=== PATIENT | female | born 1960 | race Caucasian/White ===

== ENCOUNTER 2016-09-08 10:16 | Observation (INO) | payer OTHER ==
[~2016-09-08] VITALS: Ht 175.3 cm; Wt 65.3 kg
[~2016-09-08 10:16] MED LIST: CYCL1PAK PO; IBUP600T26 PO; NORC7.5T PO; OMEP20TA39 PO; SYMB80AE INH; VENTAER INH
[2016-09-08 10:28] VITALS: BP 126/75; PULSE 97; RESP 16; TEMP 98.8; O2SAT 98
[2016-09-08] MEDS ORDERED: VANCOMYCIN INJ 1,000 MG in SODIUM CHLOR 0.9% 250 ML INJ 250 ML IV STA (10:47)
[2016-09-08] MEDS ORDERED: PIPERACIL-TAZO 4.5 GM PREMIX 100 ML IV STA (10:47)
--- NOTE | 2016-09-08 10:55 | PD ---
HPI . Pain and swelling of the left upper extremity Chief Complaint: Edema Time Seen by Provider: 10:43 Travel History International Travel<30 days: No Contact w/Intl Traveler<30days: No Traveled to known affect area: No History of Present Illness HPI Patient presents with a 24-hour history of pain and swelling of the left upper extremity. She states that it started as some red blotches on the medial aspect of her left arm. This morning, her entire left arm is involved and is spreading to her neck and chest. She denies any associated fever or any other systemic complaints. [id number]: Left arm DURATION: 24 hours TIMING: Progressively worsening CONTEXT: Status post lymph node dissection of the left axilla secondary to breast cancer resultant lymphedema ASSOCIATED SYMPTOMS: No associated systemic symptoms PFSH Past Medical History Arthritis: Yes Blood Disorders: No Anxiety: Yes Cancer: Yes (LEFT BREAST) Chemotherapy: Yes (Hx of) Diminished Hearing: No Genitourinary: No Immune Disorder: Yes Musculoskeletal: Yes Neurologic: Yes Respiratory: Yes (copd) Radiation Therapy: Yes Tetanus Vaccination: > 5 Years Influenza Vaccination: No ?: Not Menopausal: Yes Past Surgical History Gynecologic Surgery: Yes (L BREAST MASECTOMY PARTIAL) Hysterectomy: Yes Neurologic Surgery: Yes (C2 NECK SURGERY) Other Surgery: Yes (PORT REMOVED 2011) Social History Alcohol Use: Yes (RARE) Tobacco Use: Yes (1/2 PPD) Substance Use: No (DENIES) Allergies-Medications (Allergen,Severity, Reaction): Coded Allergies: Furadantin (Verified Allergy, Severe, SEIZURES AND SWELLING, 09/08/16) Percocet (Unverified Allergy, Unknown, PROJECTILE VOMITING, 09/08/16) Percodan (Unverified Allergy, Unknown, PROJECTILE VOMITING, 09/08/16) Reported Meds & Prescriptions Reported Meds & Active Scripts Active Review of Systems Except as stated in HPI: all other systems reviewed are Neg General / Constitutional: No: Fever, Chills Gastrointestinal: No: Nausea, Vomiting Musculoskeletal: Positive: Myalgias, Edema Skin: Positive Change in Pigmentation Physical Exam Narrative GENERAL: Healthy-appearing woman who is in no acute distress. SKIN: Warm and dry. The skin of the left arm is red and hot. The skin on the medial aspect of the left arm feels pretty tight. She has some patches of redness skin on her left chest and left anterior neck. HEAD: Atraumatic. Normocephalic. EYES: Pupils equal and round. ENT: No nasal bleeding or discharge. Mucous membranes pink and moist. NECK: Trachea midline. Neck is supple. CARDIOVASCULAR: Regular rate and rhythm. RESPIRATORY: No accessory muscle use. MUSCULOSKELETAL: No obvious deformities. Left upper extremity is tender. NEUROLOGICAL: Awake and alert. No obvious cranial nerve deficits. Motor grossly within normal limits. Normal speech. PSYCHIATRIC: Appropriate mood and affect; insight and judgment normal. Data Data Last Documented VS Vital Signs Date Time Temp Pulse Resp B/P Pulse Ox O2 Delivery O2 Flow Rate FiO2 09/08/16 10:28 98.8 97 16 126/75 98 Orders Complete Blood Count With Diff (09/08/16 10:47) Comprehensive Metabolic Panel (09/08/16 10:47) Lactic Acid Sepsis Protocol (09/08/16 10:47) Blood Culture (09/08/16 10:47) Iv Access Insert/Monitor (09/08/16 10:47) Hydromorphone Pf Inj (Dilaudid Pf Inj) (09/08/16 11:00) Ondansetron Inj (Zofran Inj) (09/08/16 11:00) Piperacil-Tazo 4.5 Gm Premix (Zosyn 4.5 (09/08/16 10:47) Vancomycin Inj (Vancomycin Inj) (09/08/16 10:47) Us Arm Venous Doppler (09/08/16 10:47) Basic Metabolic Panel (Bmp) (09/08/16 12:47) Diet As Tolerated (09/08/16 13:05) Admit Order (Ed Use Only) (09/08/16 13:44) Labs Laboratory Tests Test 09/08/16 09/08/16 11:15 11:30 White Blood Count 17.9 TH/MM3 Red Blood Count 4.06 MIL/MM3 Hemoglobin 13.6 GM/DL Hematocrit 40.7 % Mean Corpuscular Volume 100.4 FL Mean Corpuscular Hemoglobin 33.6 PG Mean Corpuscular Hemoglobin 33.5 % Concent Red Cell Distribution Width 13.9 % Platelet Count 285 TH/MM3 Mean Platelet Volume 7.9 FL Neutrophils (%) (Auto) 91.2 % Lymphocytes (%) (Auto) 7.2 % Monocytes (%) (Auto) 1.3 % Eosinophils (%) (Auto) 0.1 % Basophils (%) (Auto) 0.2 % Neutrophils # (Auto) 16.4 TH/MM3 Lymphocytes # (Auto) 1.3 TH/MM3 Monocytes # (Auto) 0.2 TH/MM3 Eosinophils # (Auto) 0.0 TH/MM3 Basophils # (Auto) 0.0 TH/MM3 CBC Comment DIFF FINAL Differential Comment Sodium Level 142 MEQ/L Potassium Level 3.5 MEQ/L Chloride Level 105 MEQ/L Carbon Dioxide Level 27.3 MEQ/L Anion Gap 10 MEQ/L Blood Urea Nitrogen 9 MG/DL Creatinine 0.76 MG/DL Estimat Glomerular Filtration 79 ML/MIN Rate Random Glucose 98 MG/DL Calcium Level 9.0 MG/DL Total Bilirubin 1.0 MG/DL Aspartate Amino Transf 45 U/L (AST/SGOT) Alanine Aminotransferase 38 U/L (ALT/SGPT) Alkaline Phosphatase 105 U/L Total Protein 7.6 GM/DL Albumin 3.7 GM/DL Lactic Acid Level 1.0 mmol/L MDM Medical Decision Making Medical Screen Exam Complete: Yes Emergency Medical Condition: Yes Differential Diagnosis My differential diagnosis includes but is not limited to localized wound infection, cellulitis, abscess, DVT Narrative Course Patient presents with acutely red, hot, swollen, painful left arm. I will treat her empirically for cellulitis with Zosyn and vancomycin. She will have an ultrasound rule out DVT. CBC Diagram 09/08/16 11:15 Last Impressions Upper Extremity Ultrasound 09/08/16 1047 Signed Impressions: Service Date/Time: Thursday, September 08, 2016 16:43 - CONCLUSION: No left upper extremity DVT. Iban Moon MD Diagnosis Primary Impression: Cellulitis Qualified Code: L03.114 - Cellulitis of left upper extremity Scripts Ondansetron Odt (Zofran Odt)4 Mg Tab4 Mg SL Q6HR PRN (Nausea/Vomiting) #30 TAB Ref 0 Prov:Nadine Spain MD 09/09/16 Amoxicillin-Clavulanate (Augmentin)875-125 mg [id number] Mg PO BID #10 TAB Ref 0 not for use in CrCl <30 ml/min. Prov:Nadine Spain MD 09/09/16 Leticia Bonds MD Sep 08, 2016 10:55
[2016-09-08] MEDS ORDERED: ONDANSETRON HCL 4 MG/2 ML VIAL IV ONE (11:00)
[2016-09-08] MEDS ORDERED: HYDROmorphone HCL PF 1 MG/ML VIAL IV ONE (11:00)
[2016-09-08 11:24] LABS: AUTOMATED NEUTROPHIL # 16.4 TH/MM3 (1.8-7.7); BASOPHIL % 0.2 % (0.0-2.0); EOSINOPHIL % 0.1 % (0.0-4.0); HEMATOCRIT 40.7 % (35.0-46.0); LYMPH % 7.2 % (9.0-44.0); LYMPHOCYTE # 1.3 TH/MM3 (1.0-4.8); MEAN CELL VOLUME 100.4 FL (80.0-100.0); MEAN CORPUSCULAR HEMOGLOBIN 33.6 PG (27.0-34.0); MEAN CORPUSCULAR HGB CONC 33.5 % (32.0-36.0); MONO % 1.3 % (0.0-8.0); NEUT % 91.2 % (16.0-70.0); PLATELET COUNT 285 TH/MM3 (150-450); RED BLOOD COUNT 4.06 MIL/MM3 (4.00-5.30); RED CELL DISTRIBUTION WIDTH 13.9 % (11.6-17.2); WHITE BLOOD COUNT 17.9 TH/MM3 (4.0-11.0)
[2016-09-08 11:27] LABS: HEMO FLAGS DIFF FINAL
[2016-09-08 11:32] LABS: CHLORIDE 105 MEQ/L (98-107); POTASSIUM 3.5 MEQ/L (3.5-5.1); SODIUM (NA) 142 MEQ/L (136-145)
[2016-09-08 11:35] LABS: ANION GAP 10 MEQ/L (5-15); BICARBONATE 27.3 MEQ/L (21.0-32.0)
[2016-09-08 11:36] LABS: BLOOD UREA NITROGEN 9 MG/DL (7-18)
[2016-09-08 11:38] LABS: ALT (GPT) 38 U/L (10-53); AST (GOT) 45 U/L (15-37)
[2016-09-08 11:39] LABS: GLOMERULAR FILTRATION RATE 79 ML/MIN (>89)
[2016-09-08 11:41] LABS: ALKALINE PHOSPHATASE 105 U/L (45-117)
--- NOTE | 2016-09-08 12:12 | RADHPO ---
EXAM DATE/TIME: 09/08/2016 16:43 [facility] COMPARISON: No previous studies available for comparison. INDICATIONS : Left arm swelling and pain. MEDICAL HISTORY : Chronic obstructive pulmonary disease. Neck and lower back surgery. Arthritis. Left breast cancer. Chemotherapy. Radiation therapy. SURGICAL HISTORY : Hysterectomy. Left partial mastectomy. Port placement and removal. ENCOUNTER: Initial ACUITY: 1 day PAIN SCORE: 3/10 LOCATION: Left arm. FINDINGS: There is spontaneous flow documented in the brachial, basilic, cephalic, axillary, and subclavian vei ns. The vessels are compressible and augmentation response is documented. No filling defects are se en. The flow is phasic with respiration. Direction of flow in the jugular vein is caudal. CONCLUSION: No left upper extremity DVT. Iban Moon MD on September 08, 2016 at 12:10 Board Certified Radiologist. This report was verified electronically.
[2016-09-08 14:14] LABS: POTASSIUM 3.5 MEQ/L (3.5-5.1)
[2016-09-08 14:18] VITALS: BP 122/80; PULSE 74; RESP 18; O2SAT 99
[2016-09-08 14:47] LABS: BICARBONATE 28.4 MEQ/L (21.0-32.0)
[2016-09-08] MEDS ORDERED: SODIUM CHLORIDE 0.9% FLUSH 5 ML FLUSH FLUSH PRN (15:30)
--- NOTE | 2016-09-08 15:36 | HHI.HP ---
[facility] Physician Non-Staff Admission Diagnosis CELLULITIS LUE Diagnoses: Chief Complaint: Left arm swelling Travel History International Travel<30 Days: No Contact w/Intl Traveler <30 Da: No Traveled to Known Affected Are: No History of Present Illness The patient is a very pleasant 56 year female with a history of the left breast cancer mastectomy with lymph node resection. She did have 2 days of increasing pain and burning and swelling of the left upper extremity with subjective chills and nausea. The discomfort became so great that she came to the emergency room and found to have significant cellulitis of the arm. This is given antibiotics and feels somewhat better. Her pain is okay and it this point is not severe. She noted the redness and swelling began as blotchiness been tracked all of the upper arm into her shoulder and chest and came to the emergency room for further evaluation. Patient has not had a fever, however she has been nauseated. For these reasons the patient did come to the emergency room Review of Systems Constitutional: DENIES: Diaphoretic episodes, Fatigue, Fever, Weight gain, Weight loss, Chills, Dizziness, Change in appetite, Night Sweats Endocrine: DENIES: Abnorml menstrual pattern, Heat/cold intolerance, Polydipsia , Polyuria, Polyphagia Eyes: DENIES: Blurred vision, Diplopia, Eye inflammation, Eye pain, Vision loss , Photosensitivity, Double Vision Ears, nose, mouth, throat: DENIES: Tinnitus, Hearing loss, Vertigo, Nasal discharge, Oral lesions, Throat pain, Hoarseness, Ear Pain, Running Nose, Epistaxis, Sinus Pain, Toothache, Odynophagia Respiratory: DENIES: Apneas, Cough, Snoring, Wheezing, Hemoptysis, Sputum production, Shortness of breath Cardiovascular: DENIES: Chest pain, Palpitations, Syncope, Dyspnea on Exertion , PND, Lower Extremity Edema, Orthopnea, Claudication Gastrointestinal: COMPLAINS OF: Nausea, DENIES: Abdominal pain, Black stools, Bloody stools, Constipation, Diarrhea, Vomiting, Difficulty Swallowing, Anorexia Genitourinary: DENIES: Abnormal vaginal bleeding, Dysmenorrhea, Dyspareunia, Sexual dysfunction, Urinary frequency, Urinary incontinence, Urgency, Hematuria , Dysuria, Nocturia, Vaginal discharge Musculoskeletal: DENIES: Joint pain, Muscle aches, Stiffness, Joint Swelling, Back pain, Neck pain Integumentary: DENIES: Abnormal pigmentation, Pruritus, Rash, Nail changes, Breast masses, Breast skin changes, Nipple discharge Hematologic/lymphatic: DENIES: Bruising, Lymphadenopathy Immunologic/allergic: DENIES: Eczema, Urticaria Neurologic: DENIES: Abnormal gait, Headache, Localized weakness, Paresthesias, Seizures, Speech Problems, Tremor, Poor Balance Psychiatric: DENIES: Anxiety, Confusion, Mood changes, Depression, Hallucinations, Agitation, Suicidal Ideation, Homicidal Ideation, Delusions Past Family Social History Past Medical History Breast cancer Chronic neck pain Past Surgical History lumpectomy, mastectomy Cervical neck surg Reported Medications Reviewed in the medical record Allergies: Coded Allergies: Furadantin (Verified Allergy, Severe, SEIZURES AND SWELLING, 09/08/16) Percocet (Unverified Allergy, Unknown, PROJECTILE VOMITING, 09/08/16) Percodan (Unverified Allergy, Unknown, PROJECTILE VOMITING, 09/08/16) Active Ordered Medications Reviewed and the medical record Family History Mother had colon cancer Social History Occasional marijuana, no alcohol, patient smokes pack per day Physical Exam Vital Signs Vital Signs Date Time Temp Pulse Resp B/P Pulse Ox O2 Delivery O2 Flow Rate FiO2 09/08/16 14:18 74 18 122/80 99 Room Air 09/08/16 10:28 98.8 97 16 126/75 98 Physical Exam GENERAL: This is a well-nourished, well-developed patient, in no apparent distress. SKIN: No rashes, ecchymoses or lesions. Cool and dry. HEAD: Atraumatic. Normocephalic. No temporal or scalp tenderness. EYES: Pupils equal round and reactive. Extraocular motions intact. No scleral icterus. No injection or drainage. ENT: Nose without bleeding, purulent drainage or septal hematoma. Throat without erythema, tonsillar hypertrophy or exudate. Uvula midline. Airway patent. NECK: Trachea midline. No JVD or lymphadenopathy. Supple, nontender, no meningeal signs. CARDIOVASCULAR: Regular rate and rhythm without murmurs, gallops, or rubs. RESPIRATORY: Clear to auscultation. Breath sounds equal bilaterally. No wheezes , rales, or rhonchi. GASTROINTESTINAL: Abdomen soft, non-tender, nondistended. No hepato-splenomegaly , or palpable masses. No guarding. MUSCULOSKELETAL: Left arm edema and erythema, other 3 Extremities without clubbing, cyanosis, or edema. No joint tenderness, effusion, or edema noted. No calf tenderness. Negative Homans sign bilaterally. NEUROLOGICAL: Awake and alert. Cranial nerves II through XII intact. Motor and sensory grossly within normal limits. Five out of 5 muscle strength in all muscle groups. Normal speech. Laboratory Laboratory Tests Test 09/08/16 09/08/16 09/08/16 11:15 11:30 13:56 White Blood Count 17.9 Red Blood Count 4.06 Hemoglobin 13.6 Hematocrit 40.7 Mean Corpuscular Volume 100.4 Mean Corpuscular Hemoglobin 33.6 Mean Corpuscular Hemoglobin 33.5 Concent Red Cell Distribution Width 13.9 Platelet Count 285 Mean Platelet Volume 7.9 Neutrophils (%) (Auto) 91.2 Lymphocytes (%) (Auto) 7.2 Monocytes (%) (Auto) 1.3 Eosinophils (%) (Auto) 0.1 Basophils (%) (Auto) 0.2 Neutrophils # (Auto) 16.4 Lymphocytes # (Auto) 1.3 Monocytes # (Auto) 0.2 Eosinophils # (Auto) 0.0 Basophils # (Auto) 0.0 CBC Comment DIFF FINAL Differential Comment Sodium Level 142 141 Potassium Level 3.5 3.5 Chloride Level 105 105 Carbon Dioxide Level 27.3 28.4 Anion Gap 10 8 Blood Urea Nitrogen 9 9 Creatinine 0.76 0.71 Estimat Glomerular Filtration 79 85 Rate Random Glucose 98 101 Calcium Level 9.0 8.1 Total Bilirubin 1.0 Aspartate Amino Transf 45 (AST/SGOT) Alanine Aminotransferase 38 (ALT/SGPT) Alkaline Phosphatase 105 Total Protein 7.6 Albumin 3.7 Lactic Acid Level 1.0 Date/Time Procedure Status Source Growth 09/08/16 11:30 Aerobic Blood Culture Received Blood Peripheral Pending 09/08/16 11:30 Anaerobic Blood Culture Received Blood Peripheral Pending Result Diagram: 09/08/16 1115 09/08/16 1356 Imaging Last Impressions Upper Extremity Ultrasound 09/08/16 1047 Signed Impressions: Service Date/Time: Thursday, September 08, 2016 16:43 - CONCLUSION: No left upper extremity DVT. Iban Moon MD Assessment and Plan Problem List: (1) Cellulitis ICD Code: L03.90 Status: Acute Plan: Unasyn Pain control Re eval in am Leukocytosis, (2) Lymphedema ICD Code: I89.0 Status: Acute Plan: Left arm, chronic after breast CA Pt education, Nadine Rivers MD Sep 08, 2016 15:36
[2016-09-08] MEDS ORDERED: traMADol HCL 50 MG TAB PO PRN (16:00)
[2016-09-08] MEDS: AMPICILLIN-SULBACTAM INJ 3 GM in SODIUM CHLORIDE 0.9% INJ 100 ML IV SCH ×2 (16:13→22:39)
[2016-09-08] MEDS: HYDROmorphone HCL PF 2 MG/ML VIAL IVS PRN (18:27)
[2016-09-08] MEDS: ONDANSETRON HCL 4 MG/2 ML VIAL IVP PRN (18:27)
[2016-09-08 18:33] VITALS: BP 119/79; PULSE 80; RESP 18; O2SAT 98
[2016-09-08 20:11] VITALS: BP 118/78; PULSE 78; RESP 18; O2SAT 98
[2016-09-08 20:59] VITALS: BP 125/86; PULSE 84; RESP 14; TEMP 98.3; O2SAT 94
[2016-09-08] MEDS: SODIUM CHLORIDE 0.9% FLUSH 5 ML FLUSH FLUSH SCH (21:00)
[2016-09-09 00:16] VITALS: BP 138/85; PULSE 86; RESP 16; TEMP 98.6; O2SAT 97
[2016-09-09] MEDS: ONDANSETRON HCL 4 MG/2 ML VIAL IVP PRN ×2 (00:35→06:46)
[2016-09-09] MEDS: HYDROmorphone HCL PF 2 MG/ML VIAL IVS PRN ×2 (00:35→06:47)
[2016-09-09] MEDS: AMPICILLIN-SULBACTAM INJ 3 GM in SODIUM CHLORIDE 0.9% INJ 100 ML IV SCH ×2 (04:56→10:00)
[2016-09-09 07:22] LABS: AUTOMATED NEUTROPHIL # 9.4 TH/MM3 (1.8-7.7); BASOPHIL % 0.1 % (0.0-2.0); EOSINOPHIL # 0.1 TH/MM3 (0-0.4); EOSINOPHIL % 0.8 % (0.0-4.0); HEMATOCRIT 34.1 % (35.0-46.0); LYMPH % 8.5 % (9.0-44.0); LYMPHOCYTE # 0.9 TH/MM3 (1.0-4.8); MEAN CELL VOLUME 100.3 FL (80.0-100.0); MEAN CORPUSCULAR HEMOGLOBIN 33.5 PG (27.0-34.0); MEAN CORPUSCULAR HGB CONC 33.3 % (32.0-36.0); NEUT % 85.6 % (16.0-70.0); PLATELET COUNT 220 TH/MM3 (150-450); RED CELL DISTRIBUTION WIDTH 13.5 % (11.6-17.2); WHITE BLOOD COUNT 10.9 TH/MM3 (4.0-11.0)
[2016-09-09 07:24] LABS: HEMO FLAGS DIFF FINAL
[2016-09-09 07:35] LABS: BICARBONATE 30.1 MEQ/L (21.0-32.0)
[2016-09-09] MEDS ORDERED: VENTAER INH (07:44)
[2016-09-09] MEDS ORDERED: OMEP20TA PO (07:44)
[2016-09-09] MEDS ORDERED: HYDR-3580 PO (07:44)
[2016-09-09] MEDS ORDERED: IBUP-232 PO (07:44)
[2016-09-09] MEDS ORDERED: SYMB80AE INH (07:44)
[2016-09-09 08:00] VITALS: BP 131/84; PULSE 79; RESP 18; TEMP 97.2; O2SAT 97
[2016-09-09] MEDS: SODIUM CHLORIDE 0.9% FLUSH 5 ML FLUSH FLUSH SCH (09:00)
[2016-09-09] MEDS ORDERED: AUGM875T PO (10:15)
[2016-09-09] MEDS ORDERED: ZOFR4TAB3 SL (10:15)
--- NOTE | 2016-09-09 10:17 | HHI.DCPOC ---
Discharge Care Plan Diagnosis: (1) Cellulitis Goals to Promote Your Health * To prevent worsening of your condition and complications * To maintain your health at the optimal level Directions to Meet Your Goals Take your medications as prescribed Follow your dietary instruction Follow activity as directed Keep your appointments as scheduled Take your immunizations and boosters as scheduled If your symptoms worsen call your PCP, if no PCP go to Urgent Care Center or Emergency Room Smoking is Dangerous to Your Health. Avoid second hand smoke Call the 24-hour hour crisis hotline for domestic abuse at Nadine Spain MD Sep 09, 2016 10:17
--- NOTE | 2016-09-09 10:18 | HHI.PR ---
Subjective Remarks Patient seen in follow-up for left arm cellulitis which is greatly improved. Edema and erythema is improved. Pain is improved. Leukocytosis improved. Discharge plans discussed with patient who is agreeable for discharge from outpatient follow-up with primary care physician Objective Vitals Vital Signs Date Time Temp Pulse Resp B/P Pulse Ox O2 Delivery O2 Flow Rate FiO2 09/09/16 08:00 97.2 79 18 131/84 97 09/09/16 00:16 98.6 86 16 138/85 97 09/08/16 20:59 98.3 84 14 125/86 94 09/08/16 20:12 78 18 98 09/08/16 20:11 78 18 118/78 98 Room Air 09/08/16 18:33 80 18 119/79 98 Room Air 09/08/16 14:18 74 18 122/80 99 Room Air 09/08/16 10:28 98.8 97 16 126/75 98 I/O 09/08/16 09/08/16 09/08/16 09/09/16 09/09/16 09/09/16 07:00 15:00 23:00 07:00 15:00 23:00 Intake Total 230 ml Balance 230 ml Intake IV Total 230 ml # Voids 1 Result Diagram: 09/09/16 0652 09/09/16 0652 Imaging Last Impressions Upper Extremity Ultrasound 09/08/16 1047 Signed Impressions: Service Date/Time: Thursday, September 08, 2016 16:43 - CONCLUSION: No left upper extremity DVT. Iban Moon MD Objective Remarks GENERAL: This is a well-nourished, well-developed patient, in no apparent distress. CARDIOVASCULAR: Regular rate and rhythm without murmurs, gallops, or rubs. RESPIRATORY: Clear to auscultation. Breath sounds equal bilaterally. No wheezes , rales, or rhonchi. GASTROINTESTINAL: Abdomen soft, non-tender, nondistended. Normal active bowel sounds MUSCULOSKELETAL: Extremities without clubbing, cyanosis, or edema. NEURO: Alert & Oriented x4 to person, place, time, situation. Moves all ext x4 A/P Problem List: (1) Cellulitis ICD Code: L03.90 Status: Acute Plan: Augmentin by mouth Pain control Resolved Leukocytosis, (2) Lymphedema ICD Code: I89.0 Status: Acute Plan: Left arm, chronic after breast CA Pt education, elevate Discharge Planning Discharge home Activity unrestricted Diet regular Follow-up PCP 09/19 Nadine Spain MD Sep 09, 2016 10:18
[2016-09-09] MEDS ORDERED: ONDANSETRON HCL 4 MG/2 ML VIAL IV PUSH ONE (11:45)
== END 2016-09-09 12:34 | disposition home or self-care (01) ==
LOC: PHED 10:16 → INTOOBSV 13:45 → PHEDA 13:45 → PHEDH 17:45 → PH3B 20:10
PROVIDERS: ADMIT Hospitalist; ATTEND Hospitalist
DX: L03.114 Cellulitis of left upper limb (principal); I89.0 Lymphedema, not elsewhere classified; M54.2 Cervicalgia; G89.29 Other chronic pain; F17.200 Nicotine dependence, unspecified, uncomplicated; D72.829 Elevated white blood cell count, unspecified; J44.9 Chronic obstructive pulmonary disease, unspecified; M19.90 Unspecified osteoarthritis, unspecified site; F41.9 Anxiety disorder, unspecified; Z88.5 Allergy status to narcotic agent; Z85.3 Personal history of malignant neoplasm of breast; Z90.12 Acquired absence of left breast and nipple; Z92.3 Personal history of irradiation; Z92.21 Personal history of antineoplastic chemotherapy; Z88.8 Allergy status to other drugs, medicaments and biological substances
CPT/HCPCS: 80048; 80053; 83605; 85025; 87040; 93971; 96365; 96367; 96375; 99284; G0378; J0295; J1170; J2405; J2543; J3370; J7050

== ENCOUNTER 2017-02-07 14:02 | Inpatient (IN) | payer OTHER, MEDICARE ==
[~2017-02-07] VITALS: Ht 175.3 cm; Wt 58.5 kg
[~2017-02-07 14:02] MED LIST changes: +AUGM875T PO; -CYCL1PAK PO; +HYDR-3580 PO; +IBUP-232 PO; -IBUP600T26 PO; -NORC7.5T PO; +OMEP20TA PO; -OMEP20TA39 PO; +ZOFR4TAB3 SL
[2017-02-07 14:03] VITALS: BP 121/71; PULSE 112; RESP 24; TEMP 98.2; O2SAT 97
--- NOTE | 2017-02-07 14:12 | PD ---
Physical Exam Date Seen by Provider: Feb 07, 2017 Time Seen by Provider: 14:08 Narrative 56 yo female here for pain in left arm and possible infection in all of the body. History of cellulitis and lymphangitis. Per patient pain all over. Started an hour ago. History of cancer. No new meds. Demanding a bed to lay down. No injuries. Vitals are stable in triage. Awaiting Bed placement. Data Data Last Documented VS Vital Signs Date Time Temp Pulse Resp B/P Pulse Ox O2 Delivery O2 Flow Rate FiO2 02/07/17 14:03 98.2 112 24 121/71 97 Room Air [facility] Medical Record Reviewed: Yes Supervised Visit with ROSHAN: No Flip Huertas Feb 07, 2017 14:12
[2017-02-07] MEDS ORDERED: CLINDAMYCIN INJ 900 MG in SODIUM CHLORIDE 0.9% INJ 100 ML IV STA (15:53)
[2017-02-07] MEDS ORDERED: SODIUM CHLOR 0.9% 1000 ML INJ 1,000 ML IV ONE ×2 (15:53)
[2017-02-07] MEDS ORDERED: SODIUM CHLOR 0.9% 1000 ML INJ 400 ML IV ONE (15:53)
[2017-02-07] MEDS ORDERED: ACETAMINOPHEN 325 MG TAB PO ONE (16:00)
--- NOTE | 2017-02-07 16:02 | PD ---
HPI Chief Complaint: Allergic/Adverse Reaction Time Seen by Provider: 15:44 Travel History International Travel<30 days: No Contact w/Intl Traveler<30days: No Traveled to known affect area: No History of Present Illness HPI 56-year-old female arrives to the ER complaining of swelling and erythema and pain in the left arm. It started about 3-1/2 hours prior to ER evaluation. The onset was fairly abrupt. There is proximal migration with some erythema on the abdominal wall which has since resolved. She's had no fever. A similar episode previously was diagnosed as cellulitis. Patient complains of some pain in the left arm as well worse with palpation. She has a history of mastectomy on that side and reports history of lymphangitis. PFSH Past Medical History Arthritis: Yes Asthma: Yes Blood Disorders: No Anxiety: Yes Cancer: Yes (LEFT BREAST) Cardiovascular Problems: No Chemotherapy: Yes (Hx of) COPD: Yes Diminished Hearing: No Endocrine: No Genitourinary: Yes ("HORSESHOE KIDNEYS" (HOOKED TOGETHER, DEFOREMD)) Immune Disorder: Yes Musculoskeletal: Yes Neurologic: Yes Psychiatric: Yes Respiratory: Yes (copd) Radiation Therapy: Yes ?: Not Menopausal: Yes Past Surgical History Body Medical Devices: METAL IN NECK, BROKE C2 Gynecologic Surgery: Yes (L BREAST MASTECTOMY PARTIAL, HYSTERECTOMY) Hysterectomy: Yes Neurologic Surgery: Yes (C2 NECK SURGERY) Other Surgery: Yes (PORT REMOVED 2011) Social History Alcohol Use: Yes (RARE) Tobacco Use: Yes (/2 PPD) Substance Use: Yes (MARIJUANA) Allergies-Medications (Allergen,Severity, Reaction): Coded Allergies: Furadantin (Verified Allergy, Severe, SEIZURES AND SWELLING, 09/08/16) Percocet (Unverified Allergy, Unknown, PROJECTILE VOMITING, 09/08/16) Percodan (Unverified Allergy, Unknown, PROJECTILE VOMITING, 09/08/16) Reported Meds & Prescriptions Reported Meds & Active Scripts Active Zofran Odt (Ondansetron Odt) 4 Mg Tab 4 Mg SL Q6HR PRN Reported Mapap (Acetaminophen) 500 Mg Tab 500 Mg PO Q6HR PRN Vitamin D3 (Cholecalciferol) 2,000 Unit Cap 2,000 Units PO DAILY Super B Complex (Vitamin B Complex Vit C No.4) 150 Mg Tablet 150 Mg PO DAILY Flexeril (Cyclobenzaprine HCl) 10 Mg Tab 10 Mg PO BID Sertraline (Sertraline HCl) 25 Mg Tab 25 Mg PO DAILY Omeprazole 20 Mg Tab 20 Mg PO DAILY Symbicort Inh (Budesonide/Formoterol Fumarate) 80-4.5 Mcg/Act Aero 1 Puff INH DAILY Ventolin Hfa 18 GM Inh (Albuterol Sulfate) 90 Mcg/Act Aer 2 Puff INH Q4-6H PRN Review of Systems Except as stated in HPI: all other systems reviewed are Neg Physical Exam Narrative GENERAL: 56-year-old female well-nourished well-developed mild distress secondary to pain and/or anxiety SKIN: Warm and dry. Circumferential erythema from the DRUJ to the proximal left arm at about the level the humeral head on the left side. There is no erythema on the abdominal wall. HEAD: Atraumatic. Normocephalic. EYES: Pupils equal and round. No scleral icterus. No injection or drainage. ENT: No nasal bleeding or discharge. Mucous membranes pink and moist. NECK: Trachea midline. No JVD. CARDIOVASCULAR: Tachycardia. Regular rhythm. RESPIRATORY: No accessory muscle use. Clear to auscultation. Breath sounds equal bilaterally. GASTROINTESTINAL: Abdomen soft, non-tender, nondistended. Hepatic and splenic margins not palpable. MUSCULOSKELETAL: Extremities without clubbing, cyanosis, or edema. No obvious deformities. NEUROLOGICAL: Awake and alert. No obvious cranial nerve deficits. Motor grossly within normal limits. Five out of 5 muscle strength in the arms and legs. Normal speech. PSYCHIATRIC: Appropriate mood and affect; insight and judgment normal. Data Data Last Documented VS Vital Signs Date Time Temp Pulse Resp B/P Pulse Ox O2 Delivery O2 Flow Rate FiO2 02/07/17 16:04 102.5 119 21 116/71 95 Room Air Vital signs reviewed Orders Complete Blood Count With Diff (02/07/17 15:53) Comprehensive Metabolic Panel (02/07/17 15:53) Lactic Acid Sepsis Protocol (02/07/17 15:53) Urinalysis - C+S If Indicated (02/07/17 15:53) Blood Culture (02/07/17 15:53) Blood Glucose (02/07/17 15:53) Ecg Monitoring (02/07/17 15:53) Iv Access Insert/Monitor (02/07/17 15:53) Oximetry (02/07/17 15:53) Oxygen Administration (02/07/17 15:53) Acetaminophen (Tylenol) (02/07/17 16:00) Clindamycin Inj (Cleocin Inj) (02/07/17 15:53) Sodium Chlor 0.9% 1000 Ml Inj (Ns 1000 M (02/07/17 15:53) Sodium Chlor 0.9% 1000 Ml Inj (Ns 1000 M (02/07/17 15:53) Sodium Chlor 0.9% 1000 Ml Inj (Ns 1000 M (02/07/17 15:53) Us Arm Venous Doppler (02/07/17 ) Acetamin-Hydrocod 325-5 Mg ([place] 5-325 (02/07/17 17:00) Admit Order (Ed Use Only) (02/07/17 17:45) Labs Laboratory Tests Test 02/07/17 02/07/17 06:06 16:06 Lactic Acid Level 1.2 mmol/L White Blood Count 13.6 TH/MM3 Red Blood Count 3.81 MIL/MM3 Hemoglobin 12.9 GM/DL Hematocrit 37.9 % Mean Corpuscular Volume 99.4 FL Mean Corpuscular Hemoglobin 33.7 PG Mean Corpuscular Hemoglobin 34.0 % Concent Red Cell Distribution Width 13.9 % Platelet Count 300 TH/MM3 Mean Platelet Volume 7.3 FL Neutrophils (%) (Auto) 93.1 % Lymphocytes (%) (Auto) 4.3 % Monocytes (%) (Auto) 2.4 % Eosinophils (%) (Auto) 0.1 % Basophils (%) (Auto) 0.1 % Neutrophils # (Auto) 12.7 TH/MM3 Lymphocytes # (Auto) 0.6 TH/MM3 Monocytes # (Auto) 0.3 TH/MM3 Eosinophils # (Auto) 0.0 TH/MM3 Basophils # (Auto) 0.0 TH/MM3 CBC Comment DIFF FINAL Differential Comment Sodium Level 137 MEQ/L Potassium Level 2.9 MEQ/L Chloride Level 102 MEQ/L Carbon Dioxide Level 22.5 MEQ/L Anion Gap 13 MEQ/L Blood Urea Nitrogen 11 MG/DL Creatinine 0.73 MG/DL Estimat Glomerular Filtration 82 ML/MIN Rate Random Glucose 95 MG/DL Calcium Level 9.2 MG/DL Total Bilirubin 0.8 MG/DL Aspartate Amino Transf 16 U/L (AST/SGOT) Alanine Aminotransferase 17 U/L (ALT/SGPT) Alkaline Phosphatase 87 U/L Total Protein 7.3 GM/DL Albumin 3.9 GM/DL MDM Medical Decision Making Medical Screen Exam Complete: Yes Emergency Medical Condition: Yes Medical Record Reviewed: Yes Differential Diagnosis Sepsis, cellulitis, severe sepsis, dermatitis Narrative Course CBC & BMP Diagram 02/07/17 16:06 Lactic acid 1.2 Clindamycin started Patient will be admitted for sepsis due to cellulitis of the left upper extremity The left upper extremity Doppler is negative for DVT Case discussed with Dr. Sauceda Sepsis Criteria SIRS Criteria (2 or more): Temp > 100.9 or < 96.8, Heart rate over 90 Sepsis Criteria (SIRS+source): Infect source susp/known Diagnosis Primary Impression: Cellulitis Qualified Code: L03.114 - Cellulitis of left upper extremity Additional Impression: Sepsis Qualified Code: A41.9 - Sepsis, due to unspecified organism Admitting Information Admitting Physician Requests: Admit Carlos Leal MD Feb 07, 2017 16:02
[2017-02-07 16:04] VITALS: BP 116/71; PULSE 119; RESP 21; TEMP 102.5; O2SAT 95
[2017-02-07 16:42] LABS: AUTOMATED NEUTROPHIL # 12.7 TH/MM3 (1.8-7.7); BASOPHIL % 0.1 % (0.0-2.0); EOSINOPHIL % 0.1 % (0.0-4.0); HEMATOCRIT 37.9 % (35.0-46.0); HEMO FLAGS DIFF FINAL; LYMPH % 4.3 % (9.0-44.0); LYMPHOCYTE # 0.6 TH/MM3 (1.0-4.8); MEAN CELL VOLUME 99.4 FL (80.0-100.0); MEAN CORPUSCULAR HEMOGLOBIN 33.7 PG (27.0-34.0); MONO % 2.4 % (0.0-8.0); NEUT % 93.1 % (16.0-70.0); PLATELET COUNT 300 TH/MM3 (150-450); RED BLOOD COUNT 3.81 MIL/MM3 (4.00-5.30); RED CELL DISTRIBUTION WIDTH 13.9 % (11.6-17.2); WHITE BLOOD COUNT 13.6 TH/MM3 (4.0-11.0)
[2017-02-07] MEDS ORDERED: ACETAMINOPHEN/HYDROcodone 325 MG/5 MG TAB PO ONE (17:00)
[2017-02-07] MEDS ORDERED: SERT25TA83 PO (17:09)
[2017-02-07] MEDS ORDERED: IBUP800T23 PO (17:09)
[2017-02-07 17:10] LABS: ALKALINE PHOSPHATASE 87 U/L (45-117); ALT (GPT) 17 U/L (10-53); ANION GAP 13 MEQ/L (5-15); AST (GOT) 16 U/L (15-37); BICARBONATE 22.5 MEQ/L (21.0-32.0); BLOOD UREA NITROGEN 11 MG/DL (7-18); CHLORIDE 102 MEQ/L (98-107); GLOMERULAR FILTRATION RATE 82 ML/MIN (>89); SODIUM (NA) 137 MEQ/L (136-145); TOTAL BILIRUBIN ADULT 0.8 MG/DL (0.2-1.0)
[2017-02-07] MEDS ORDERED: VITA150T PO (17:11)
[2017-02-07] MEDS ORDERED: CYCL1TAB29 PO (17:11)
[2017-02-07] MEDS ORDERED: MAPA500T PO (17:11)
[2017-02-07] MEDS ORDERED: VITA2000 PO (17:11)
[2017-02-07 17:18] LABS: POTASSIUM 2.9 MEQ/L (3.5-5.1)
[2017-02-07 18:00] VITALS: BP 139/78; PULSE 107; RESP 25; O2SAT 98
[2017-02-07] MEDS ORDERED: ONDANSETRON ODT 4 MG TAB SL PRN (18:00)
[2017-02-07] MEDS ORDERED: ONDANSETRON HCL 4 MG/2 ML VIAL ONE (18:04)
[2017-02-07 18:10] LABS: BLOOD, URINE TRACE (NEG); GLUCOSE,URINE NEG (NEG); KETONE, URINE 10 mg/dL (NEG); MUCUS URINE FEW /lpf (OCC); NITRITE,URINE NEG (NEG); SQUAMOUS EPITHELIAL CELL URINE 1 /hpf (0-5); URINE COLOR YELLOW (YELLW/STRAW)
[2017-02-07 18:12] LABS: COMMENT (UR) CATH-CULT NOT IND; CULTURE IF INDICATED CATH CULTURE NOT IND
[2017-02-07] MEDS ORDERED: POTASSIUM CHLORIDE 20 MEQ CONTROLLED RELEASE TAB PO ONE (18:15)
[2017-02-07] MEDS ORDERED: POTASSIUM CHLOR 10 MEQ PREMIX 100 ML IV SCH (18:30)
--- NOTE | 2017-02-07 18:30 | RADRPT ---
EXAM DATE/TIME: 02/07/2017 17:43 [facility] COMPARISON: No previous studies available for comparison. INDICATIONS : Left arm redness and swelling. MEDICAL HISTORY : Chronic obstructive pulmonary disease. Horseshoe kidneys. Anxiety. Arthritis. Left breast cancer. C hemotherapy. Radiation therapy. Blood transfusion. Measles. SURGICAL HISTORY : Hysterectomy. Mastectomy, left. Port placement. Neck surgery. Shoulder surgery. Back surgery. ENCOUNTER: Subsequent ACUITY: 2 day PAIN SCORE: 4/10 LOCATION: Left arm. FINDINGS: There is spontaneous flow documented in the brachial, basilic, cephalic, axillary, and subclavian vei ns. The vessels are compressible and augmentation response is documented. No filling defects are se en. The flow is phasic with respiration. Direction of flow in the jugular vein is caudal. CONCLUSION: Normal examination. Zeke Shelton MD on February 07, 2017 at 18:29 Board Certified Radiologist. This report was verified electronically.
--- NOTE | 2017-02-07 18:31 | HHI.HP ---
[facility] Non[facility]Staff Admission Diagnosis Sepsis (Cellulitis), Hypokalemia Diagnoses: (1) Sepsis Diagnosis: Principal Travel History International Travel<30 Days: No Contact w/Intl Traveler <30 Da: No Traveled to Known Affected Are: No Sepsis Criteria SIRS Criteria (2 or more): Temp > 100.9 or < 96.8, Heart rate over 90 Sepsis Criteria (SIRS+source): Infect source susp/known Criteria Outcome: Meets severe sepsis criteria History of Present Illness Patient is a very pleasant 56 years old female with history of breast cancer status post left mastectomy with this morning complained of tightness in the muscles around the neck area and left upper arm deltoid area. Associated with feverish sensation, chills and a MAXIMUM TEMPERATURE of 102.5. here in the emergency room.. Patient has chronic swelling of the left upper extremity from mastectomy and uses a lymphedema machine wrap around her arm on a regular basis. Patient states that swelling and is more than usual and more infiltrated. Also noted increased amount of left upper extremity. Came in here and was noted to be tachycardic Patient admitted for further evaluation and management. Patient with history of intolerance with narcotics specifically Lortab and Percocet with adverse reaction of nausea vomiting however can tolerate it if she takes Zofran with it which slight decrease the nausea. Tramadol does nothing for her. Review of Systems Constitutional: COMPLAINS OF: Fever Endocrine: DENIES: Abnorml menstrual pattern, Heat/cold intolerance, Polydipsia , Polyuria, Polyphagia Eyes: DENIES: Blurred vision, Diplopia, Eye inflammation, Eye pain, Vision loss , Photosensitivity, Double Vision Ears, nose, mouth, throat: DENIES: Tinnitus, Hearing loss, Vertigo, Nasal discharge, Oral lesions, Throat pain, Hoarseness, Ear Pain, Running Nose, Epistaxis, Sinus Pain, Toothache, Odynophagia Respiratory: DENIES: Apneas, Cough, Snoring, Wheezing, Hemoptysis, Sputum production, Shortness of breath Cardiovascular: DENIES: Chest pain, Palpitations, Syncope, Dyspnea on Exertion , PND, Lower Extremity Edema, Orthopnea, Claudication Gastrointestinal: DENIES: Abdominal pain, Black stools, Bloody stools, Constipation, Diarrhea, Nausea, Vomiting, Difficulty Swallowing, Anorexia Genitourinary: DENIES: Abnormal vaginal bleeding, Dysmenorrhea, Dyspareunia, Sexual dysfunction, Urinary frequency, Urinary incontinence, Urgency, Hematuria , Dysuria, Nocturia, Vaginal discharge Musculoskeletal: DENIES: Joint pain, Muscle aches, Stiffness, Joint Swelling, Back pain, Neck pain Integumentary: DENIES: Abnormal pigmentation, Pruritus, Rash, Nail changes, Breast masses, Breast skin changes, Nipple discharge Hematologic/lymphatic: DENIES: Bruising, Lymphadenopathy Immunologic/allergic: DENIES: Eczema, Urticaria Neurologic: DENIES: Abnormal gait, Headache, Localized weakness, Paresthesias, Seizures, Speech Problems, Tremor, Poor Balance Psychiatric: DENIES: Anxiety, Confusion, Mood changes, Depression, Hallucinations, Agitation, Suicidal Ideation, Homicidal Ideation, Delusions Past Family Social History Past Medical History Breast cancer status post left modified mastectomy in 2006 status post chemotherapy and radiation therapy. History of chronic lymphedema of the left upper extremity History of cellulitis in his left upper extremity months ago. History of depression/anxiety disorder Past Surgical History Left mastectomy modified in 2006 Surgery in 2009 hysterectomy Arthroscopic surgery of the left shoulder Reported Medications Flexeril Sertraline 25 mg Vitamin B complex MDI inhalers Allergies: Coded Allergies: Furadantin (Verified Allergy, Severe, SEIZURES AND SWELLING, 09/08/16) Percocet (Unverified Allergy, Unknown, PROJECTILE VOMITING, 09/08/16) Percodan (Unverified Allergy, Unknown, PROJECTILE VOMITING, 09/08/16) Family History Noncontributory Social History Patient still smokes 5 sticks today it in the process of quitting Denies alcohol use denies IV drug use Occasionally smokes marijuana cannabinoids Physical Exam Vital Signs Vital Signs Date Time Temp Pulse Resp B/P Pulse Ox O2 Delivery O2 Flow Rate FiO2 02/07/17 18:00 107 25 139/78 98 Room Air 02/07/17 16:04 102.5 119 21 116/71 95 Room Air 02/07/17 16:04 102.5 119 21 116/71 95 Room Air 02/07/17 16:04 95 Room Air 02/07/17 14:03 98.2 112 24 121/71 97 Room Air Physical Exam GENERAL: This is a well-nourished, well-developed patient, in no apparent distress. SKIN: No rashes, ecchymoses or lesions. Cool and dry. HEAD: Atraumatic. Normocephalic. No temporal or scalp tenderness. EYES: Pupils equal round and reactive. Extraocular motions intact. No scleral icterus. ENT: Nose without bleedingThroat without erythema, tonsillar hypertrophy or exudate. Uvula midline. Airway patent. NECK: Trachea midline. No JVD or lymphadenopathy. Supple, nontender, no meningeal signs. No nuchal rigidity CARDIOVASCULAR: Regular rate and rhythm without murmurs, gallops, or rubs. RESPIRATORY: Clear to auscultation. Breath sounds equal bilaterally. No wheezes , rales, or rhonchi. GASTROINTESTINAL: Abdomen soft, non-tender, nondistended. No hepato-splenomegaly , or palpable masses. No guarding Left upper extremity with swelling and erythema of the entire arm. (Patient states chronic swelling but this is more pronounced than usual) NEUROLOGICAL: Awake and alert. Cranial nerves II through XII intact. Motor and sensory grossly within normal limits. Five out of 5 muscle strength in all muscle groups. Normal speech. Laboratory Laboratory Tests Test 02/07/17 02/07/17 06:06 16:06 Lactic Acid Level 1.2 White Blood Count 13.6 Red Blood Count 3.81 Hemoglobin 12.9 Hematocrit 37.9 Mean Corpuscular Volume 99.4 Mean Corpuscular Hemoglobin 33.7 Mean Corpuscular Hemoglobin 34.0 Concent Red Cell Distribution Width 13.9 Platelet Count 300 Mean Platelet Volume 7.3 Neutrophils (%) (Auto) 93.1 Lymphocytes (%) (Auto) 4.3 Monocytes (%) (Auto) 2.4 Eosinophils (%) (Auto) 0.1 Basophils (%) (Auto) 0.1 Neutrophils # (Auto) 12.7 Lymphocytes # (Auto) 0.6 Monocytes # (Auto) 0.3 Eosinophils # (Auto) 0.0 Basophils # (Auto) 0.0 CBC Comment DIFF FINAL Differential Comment Urine Color YELLOW Urine Turbidity CLEAR Urine pH 6.0 Urine Specific [place] 1.013 Urine Protein NEG Urine Glucose (UA) NEG Urine Ketones 10 Urine Occult Blood TRACE Urine Nitrite NEG Urine Bilirubin NEG Urine Urobilinogen LESS THAN 2.0 Urine Leukocyte Esterase SMALL Urine RBC 12 Urine WBC 4 Urine Squamous Epithelial 1 Cells Urine Amorphous Sediment RARE Urine Mucus FEW Microscopic Urinalysis Comment CATH-CULT NOT IND Sodium Level 137 Potassium Level 2.9 Chloride Level 102 Carbon Dioxide Level 22.5 Anion Gap 13 Blood Urea Nitrogen 11 Creatinine 0.73 Estimat Glomerular Filtration 82 Rate Random Glucose 95 Calcium Level 9.2 Total Bilirubin 0.8 Aspartate Amino Transf 16 (AST/SGOT) Alanine Aminotransferase 17 (ALT/SGPT) Alkaline Phosphatase 87 Total Protein 7.3 Albumin 3.9 Date/Time Procedure Status Source Growth 02/07/17 16:06 Aerobic Blood Culture Received Blood Peripheral Pending 02/07/17 16:06 Anaerobic Blood Culture Received Blood Peripheral Pending Result Diagram: 02/07/17 1606 02/07/17 1606 Septic Shock Reassessment Heart: Regular rate and rhythm Lungs: Clear Skin: Warm Peripheral Pulses: Bounding Right Radial Bounding Left Radial Bounding Right Popliteal Bounding Left Popliteal Bounding Right Dorsalis Pedis Bounding Left Dorsalis Pedis Bounding Right Posterior Tibial Bounding Left Posterior Tibial Capillary Refill: Brisk Assessment and Plan Assessment and Plan 56-year-old female presenting with fever or chills left upper extremity swelling and erythema Severe sepsis secondary to cellulitis of the left upper extremity with underlying lymphedema Check blood cultures 2 . Follow temperature curve Start patient on IV Unasyn 1.5 g every 6 Ultrasound of the left upper extremity elevate LUE at all times- patient knowledgeable with lymphedema management- IV morphine when necessary for pain Hypokalemia K of 2.0 Replaced with po KCL Incorporate IV KCL in IVF and by mouth potassium recheck in a.m. COPD in remission. Smoker. Patient counseled. Continue on MDIs. History of depression continue on sertraline Teds for DVT prophylaxis Discussed Condition With Patient Physician Certification 2 Midnight Certification Type: Admission for Inpatient Services Order for Inpatient Services The services are ordered in accordance with Medicare regulations or non- Medicare payer requirements, as applicable. In the case of services not specified as inpatient-only, they are appropriately provided as inpatient services in accordance with the 2-midnight benchmark. Estimated LOS (days): 3 days is the estimated time the patient will need to remain in the hospital, assuming treatment plan goals are met and no additional complications. Post-Hospital Plan: Not yet determined Problem Qualifiers (1) Sepsis: Qualified Code: A41.9 - Sepsis, due to unspecified organism Isa Sauceda MD Feb 07, 2017 18:31
[2017-02-07] MEDS ORDERED: AMPICILLIN-SULBACTAM INJ 1,500 MG VIAL IM SCH (18:45)
[2017-02-07] MEDS ORDERED: traMADol/ACETAMINOPHEN 37.5/325 1 TAB PO PRN (18:45)
[2017-02-07 19:00] VITALS: BP 134/74; PULSE 105; RESP 16; TEMP 98.3; O2SAT 100
[2017-02-07] MEDS ORDERED: PILL SPLITTER OTHER PRN (19:15)
[2017-02-07 20:00] VITALS: BP 103/55; PULSE 96; RESP 18; TEMP 98.4; O2SAT 97
[2017-02-07] MEDS: ALBUTEROL SULFATE 90 MCG/ACT HFA 8 GM INHALER INH SCH ×2 (20:01→22:01)
[2017-02-07] MEDS: NS + KCL 20 MEQ INJ 1,000 ML IV SCH (20:01)
[2017-02-07] MEDS: AMPICILLIN/SULBAC 1500 MG/NS 100 ML IV SCH ×2 (20:02)
[2017-02-07] MEDS: PANTOPRAZOLE SODIUM 40 MG VIAL IV PUSH SCH (20:02)
[2017-02-07 21:52] VITALS: PULSE 59
[2017-02-07] MEDS: CYCLOBENZAPRINE HCL 10 MG TAB PO SCH (21:56)
[2017-02-07] MEDS: MORPHINE SULFATE 4 MG/ML INJ IV PUSH PRN (21:58)
[2017-02-08] VITALS (9 sets, daily range): BP systolic 94–146; BP diastolic 57–73; PULSE 58–100; RESP 16–18; TEMP 98.3–101; O2SAT 94–99
[2017-02-08] MEDS: ACETAMINOPHEN 500 MG CPLT PO PRN (00:34)
[2017-02-08] MEDS: AMPICILLIN/SULBAC 1500 MG/NS 100 ML IV SCH ×6 (00:36→12:40)
[2017-02-08] MEDS: MORPHINE SULFATE 4 MG/ML INJ IV PUSH PRN ×3 (02:14→18:15)
[2017-02-08] MEDS: NS + KCL 20 MEQ INJ 1,000 ML IV SCH ×3 (02:16→20:45)
[2017-02-08] MEDS ORDERED: IBUPROFEN 800 MG TAB PO ONE (02:45)
[2017-02-08] MEDS: ALBUTEROL SULFATE 90 MCG/ACT HFA 8 GM INHALER INH SCH ×4 (06:16→23:11)
[2017-02-08 08:48] LABS: AUTOMATED NEUTROPHIL # 11.6 TH/MM3 (1.8-7.7); BASOPHIL % 0.2 % (0.0-2.0); EOSINOPHIL % 0.1 % (0.0-4.0); HEMATOCRIT 29.9 % (35.0-46.0); HEMO FLAGS DIFF FINAL; LYMPH % 9.8 % (9.0-44.0); LYMPHOCYTE # 1.3 TH/MM3 (1.0-4.8); MEAN CELL VOLUME 101.7 FL (80.0-100.0); MEAN CORPUSCULAR HEMOGLOBIN 34.1 PG (27.0-34.0); MEAN CORPUSCULAR HGB CONC 33.5 % (32.0-36.0); MONO % 2.4 % (0.0-8.0); NEUT % 87.5 % (16.0-70.0); PLATELET COUNT 205 TH/MM3 (150-450); RED BLOOD COUNT 2.94 MIL/MM3 (4.00-5.30); RED CELL DISTRIBUTION WIDTH 13.8 % (11.6-17.2); WHITE BLOOD COUNT 13.2 TH/MM3 (4.0-11.0)
[2017-02-08] MEDS ORDERED: NON-FORMULARY DRUG (Omeprazole 20 MG) PO SCH (09:00)
[2017-02-08] MEDS: VITAMIN B CMPLX/VITC/FOLIC AC CAP PO SCH (09:00)
[2017-02-08] MEDS: CHOLECALCIFEROL (VIT D3) 1000 UNIT TAB PO SCH (09:00)
[2017-02-08] MEDS: SERTRALINE HCL 50 MG TAB PO SCH (09:01)
[2017-02-08] MEDS: CYCLOBENZAPRINE HCL 10 MG TAB PO SCH ×2 (09:01→20:49)
[2017-02-08] MEDS: BUDESONIDE-FORMOTEROL 80/4.5 MCG INHALER INH SCH (09:02)
--- NOTE | 2017-02-08 09:26 | HHI.PR ---
Subjective Remarks requesting for a sleeping pill at bedtime- and increase pain meds - for pain in LUE complains also of neck pain T max 101 no nausea or vomiting, diarrhea or dysuria Objective Vitals Vital Signs Date Time Temp Pulse Resp B/P Pulse Ox O2 Delivery O2 Flow Rate FiO2 02/08/17 08:00 98.6 87 18 94/57 94 02/08/17 06:34 99.1 02/08/17 04:43 98.3 100 18 113/58 95 02/08/17 04:00 Room Air 02/08/17 02:10 101.0 100 18 128/68 95 02/08/17 00:00 99.3 92 18 121/60 99 02/08/17 00:00 Room Air 02/07/17 21:52 59 02/07/17 20:00 98.4 96 18 103/55 97 02/07/17 19:00 98.3 105 16 134/74 100 Nasal Cannula 2 02/07/17 18:00 107 25 139/78 98 Room Air 02/07/17 16:05 98 Nasal Cannula 2 02/07/17 16:04 102.5 119 21 116/71 95 Room Air 02/07/17 16:04 102.5 119 21 116/71 95 Room Air 02/07/17 16:04 95 Room Air 02/07/17 14:03 98.2 112 24 121/71 97 Room Air I/O 02/07/17 02/07/17 02/07/17 02/08/17 02/08/17 02/08/17 07:00 15:00 23:00 07:00 15:00 23:00 Intake Total 240 ml 1463 ml Balance 240 ml 1463 ml Intake Oral 240 ml 240 ml IV Total 1223 ml # Voids 2 2 # Bowel Movements 0 0 Result Diagram: 02/08/17 0739 02/07/17 1606 Imaging Last Impressions Upper Extremity Ultrasound 02/07/17 0000 Signed Impressions: Service Date/Time: Tuesday, February 07, 2017 17:43 - CONCLUSION: Normal examination. Zeke Shelton MD Objective Remarks awake and alert, oriented x 3 anicteric lungs clear regular rhythm abdomen soft, nontender LUE-swelling of entire LUE- same but erythema slightly decrease LE no edema A/P Problem List: (1) Sepsis ICD Code: A41.9 Status: Acute Assessment and Plan 56-year-old female presenting with fever or chills left upper extremity swelling and erythema Severe sepsis secondary to cellulitis of the left upper extremity with underlying lymphedema FF blood cultures 2 . Follow temperature curve on IV Unasyn 1.5 g every 6 doppler negative for DVT elevate LUE at all times- patient knowledgeable with lymphedema management- IV morphine when necessary for pain- Add po Lortab - patient states tolerate this well but not Percocet get ID consult for recommendations Persistent Neck pain get CT of the neck Hypokalemia K of 2.0 Incorporate IV KCL in IVF and by mouth potassium 10 meq daily recheck today. COPD in remission. Smoker. Patient counseled. Continue on MDIs. History of depression continue on sertraline Teds for DVT prophylaxis Problem Qualifiers (1) Sepsis: Qualified Code: A41.9 - Sepsis, due to unspecified organism Isa Sauceda MD Feb 08, 2017 09:26 Isa Sauceda MD Feb 08, 2017 09:26
[2017-02-08 09:27] LABS: BICARBONATE 21.8 MEQ/L (21.0-32.0); POTASSIUM 3.9 MEQ/L (3.5-5.1)
[2017-02-08] MEDS ORDERED: TEMAZEPAM 7.5 MG CAP PO PRN (09:30)
[2017-02-08] MEDS: POTASSIUM CHLORIDE 10 MEQ CONTROLLED RELEASE TAB PO SCH (10:30)
--- NOTE | 2017-02-08 11:58 | RADRPT ---
EXAM DATE/TIME: 02/08/2017 11:33 [facility] COMPARISON: No previous studies available for comparison. INDICATIONS : Neck pain, sepsis; evaluate for abscess. RADIATION DOSE: 12.83 CTDIvol (mGy) MEDICAL HISTORY : Carcinoma, breast. Chronic obstructive pulmonary disease. Neck fracture. SURGICAL HISTORY : Fusion, cervical. Left mastectomy. ENCOUNTER: Initial ACUITY: 3 days PAIN SCORE: 4/10 LOCATION: Bilateral neck TECHNIQUE: Volumetric scanning of the neck was performed. Using automated exposure control and adjustment of th e mA and/or kV according to patient size, radiation dose was kept as low as reasonably achievable to obtain optimal diagnostic quality images. DICOM format image data is available electronically for re view and comparison. FINDINGS: NASOPHARYNX: The nasopharyngeal airway has a normal configuration. No mucosal thickening or mass is seen. OROPHARYNX: The intrinsic muscles of the tongue are symmetric. The tonsillar pillars are intact. The prevertebr al soft tissues are not thickened. LARYNX: The supraglottic, glottic, and infraglottic structures are intact. PARAPHARYNGEAL: The parapharyngeal space is intact. SALIVARY GLANDS: The parotid and submandibular glands are intact. LYMPH NODES: No enlarged or necrotic-appearing nodes. THYROID: Homogeneous enhancement without evidence of nodule. BONES: Extensive previous cervical fusion. Degenerative changes. Minimal mucosal thickening in facial sinuse s. CONCLUSION: No evidence of abscess or other acute process Iban Torre MD on February 08, 2017 at 11:54 Board Certified Radiologist. This report was verified electronically.
--- NOTE | 2017-02-08 12:54 | PD.ID.CON ---
History of Present Illness Service ID Consult Requested By Dr Benavides Reason for Consult sepsis, LUE infx Primary Care Physician Non-Staff Diagnoses: History of Present Illness 56 yo F with h/o L sided breas ca sp mastevctomy chronic LUE lymphedema presetned with 1 day h/o tightness in the muscles around the neck area and left upper arm deltoid area associated with documented fever of 102.5. Leukocytosis with L shift noted Unremarkable US LUE and neck CT Negative BC @ 1 day She was started on Unasyn, but reports her edema is getting worse + occ tingling in her arm, also in her both feet Review of Systems Except as stated in HPI: all other systems reviewed are Neg Past Family Social History Allergies: Coded Allergies: Furadantin (Verified Allergy, Severe, SEIZURES AND SWELLING, 09/08/16) Percocet (Unverified Allergy, Unknown, PROJECTILE VOMITING, 09/08/16) Percodan (Unverified Allergy, Unknown, PROJECTILE VOMITING, 09/08/16) Past Medical History Breast cancer status post left modified mastectomy in 2006 status post chemotherapy and radiation therapy. History of chronic lymphedema of the left upper extremity History of cellulitis in his left upper extremity months ago. History of depression/anxiety disorder Past Surgical History Left mastectomy modified in 2006 Surgery in 2009 hysterectomy Arthroscopic surgery of the left shoulder Active Ordered Medications Medications where reviewed in EMR Antibiotics Include: unasyn 1.5 q 6 Family History reviewed Noncontributory Social History smokes 5 sigs/day Denies alcohol use denies IV drug use Occasionally smokes marijuana cannabinoids Physical Exam Vital Signs Vital Signs Date Time Temp Pulse Resp B/P Pulse Ox O2 Delivery O2 Flow Rate FiO2 02/08/17 08:00 98.6 87 18 94/57 94 02/08/17 06:34 99.1 02/08/17 04:43 98.3 100 18 113/58 95 02/08/17 04:00 Room Air 02/08/17 02:10 101.0 100 18 128/68 95 02/08/17 00:00 99.3 92 18 121/60 99 02/08/17 00:00 Room Air 02/07/17 21:52 59 02/07/17 20:00 98.4 96 18 103/55 97 02/07/17 19:00 98.3 105 16 134/74 100 Nasal Cannula 2 02/07/17 18:00 107 25 139/78 98 Room Air 02/07/17 16:05 98 Nasal Cannula 2 02/07/17 16:04 102.5 119 21 116/71 95 Room Air 02/07/17 16:04 102.5 119 21 116/71 95 Room Air 02/07/17 16:04 95 Room Air 02/07/17 14:03 98.2 112 24 121/71 97 Room Air Physical Exam CONSTITUTIONAL/GENERAL: This is an adequately nourished patient, in no apparent distress. TUBES/LINES/DRAINS: SKIN: No jaundice, rashes, or lesions. Ecchymoses on upper extremities. No wounds seen anteriorly. Skin temperature appropriate. Not diaphoretic. HEAD: Atraumatic. Normocephalic. EYES: Pupils equal and round and reactive. Extraocular motions intact. No scleral icterus. No injection or drainage. Fundi not examined. ENT: Hearing grossly normal. Nose without bleeding or purulent drainage. Throat without visible erythema, exudates, masses, or lesions. NECK: Trachea midline. Supple, nontender. CARDIOVASCULAR: Regular rate and rhythm without murmurs, gallops, or rubs. No JVD. Peripheral pulses symmetric. RESPIRATORY/CHEST: Symmetric, unlabored respirations. Clear to auscultation. Breath sounds equal bilaterally. No wheezes, rales, or rhonchi. GASTROINTESTINAL: Abdomen soft, non-tender, nondistended. No hepato-splenomegaly , or palpable masses. No guarding. Bowel sounds present. MUSCULOSKELETAL: Extremities without clubbing, cyanosis, Marked swelling of RUE about twice to three time bigge then contralateral + erythema, Tigh pitting edema. No joint tenderness or effusion noted. No calf tenderness. No mottling or clubbing. LYMPHATICS: No palpable cervical or supraclavicular adenopathy. NEUROLOGICAL: Awake and alert. Motor and sensory grossly within normal limits. Follows commands. Clear speech. Moves all extremities. PSYCHIATRIC: No obvious anxiety/depression. no apparent hallucinations or other psychotic thought process. Laboratory Laboratory Tests Test 02/07/17 02/08/17 16:06 07:39 White Blood Count 13.6 13.2 Red Blood Count 3.81 2.94 Hemoglobin 12.9 10.0 Hematocrit 37.9 29.9 Mean Corpuscular Volume 99.4 101.7 Mean Corpuscular Hemoglobin 33.7 34.1 Mean Corpuscular Hemoglobin 34.0 33.5 Concent Red Cell Distribution Width 13.9 13.8 Platelet Count 300 205 Mean Platelet Volume 7.3 7.4 Neutrophils (%) (Auto) 93.1 87.5 Lymphocytes (%) (Auto) 4.3 9.8 Monocytes (%) (Auto) 2.4 2.4 Eosinophils (%) (Auto) 0.1 0.1 Basophils (%) (Auto) 0.1 0.2 Neutrophils # (Auto) 12.7 11.6 Lymphocytes # (Auto) 0.6 1.3 Monocytes # (Auto) 0.3 0.3 Eosinophils # (Auto) 0.0 0.0 Basophils # (Auto) 0.0 0.0 CBC Comment DIFF FINAL DIFF FINAL Differential Comment Urine Color YELLOW Urine Turbidity CLEAR Urine pH 6.0 Urine Specific [place] 1.013 Urine Protein NEG Urine Glucose (UA) NEG Urine Ketones 10 Urine Occult Blood TRACE Urine Nitrite NEG Urine Bilirubin NEG Urine Urobilinogen LESS THAN 2.0 Urine Leukocyte Esterase SMALL Urine RBC 12 Urine WBC 4 Urine Squamous Epithelial 1 Cells Urine Amorphous Sediment RARE Urine Mucus FEW Microscopic Urinalysis Comment CATH-CULT NOT IND Sodium Level 137 142 Potassium Level 2.9 3.9 Chloride Level 102 112 Carbon Dioxide Level 22.5 21.8 Anion Gap 13 8 Blood Urea Nitrogen 11 8 Creatinine 0.73 0.60 Estimat Glomerular Filtration 82 103 Rate Random Glucose 95 79 Calcium Level 9.2 7.9 Total Bilirubin 0.8 Aspartate Amino Transf 16 (AST/SGOT) Alanine Aminotransferase 17 (ALT/SGPT) Alkaline Phosphatase 87 Total Protein 7.3 Albumin 3.9 Date/Time Procedure Status Source Growth 02/07/17 16:06 Aerobic Blood Culture - Preliminary Resulted Blood Peripheral NO GROWTH IN 1 DAY 02/07/17 16:06 Anaerobic Blood Culture - Preliminary Resulted Blood Peripheral NO GROWTH IN 1 DAY Result Diagram: 02/08/17 0739 02/08/17 0739 Imaging Last Impressions Neck CT 02/08/17 0000 Signed Impressions: Service Date/Time: January 11:33 - CONCLUSION: No evidence of abscess or other acute process Iban Torre MD Upper Extremity Ultrasound 02/07/17 0000 Signed Impressions: Service Date/Time: Tuesday, February 07, 2017 17:43 - CONCLUSION: Normal examination. Zeke Shelton MD Assessment and Plan Assessment and Plan LUE cellulitis in the setting s of worsening chronic lymphedema No clinically apparent compartment sd h/o ipsilateral axiallae dissection h/o breast ca cont abx; add vancomycin incrase unasyn to 3 gm LUE elevation monitor clinically will consult ortho or vascular if start to aminifest compartment sd signs Discussed Condition With Trena Hooper MD Feb 08, 2017 12:54
[2017-02-08] MEDS: ACETAMINOPHEN/HYDROcodone 325 MG/5 MG TAB PO PRN ×2 (15:56→21:45)
[2017-02-08] MEDS ORDERED: Vancomycin Consult Pharmacy 1 EA OTHER SCH (20:00)
[2017-02-08] MEDS: VANCOMYCIN 1,000 MG/NS 250 ML IV SCH ×2 (20:45)
[2017-02-08] MEDS: AMPICILLIN-SULBACTAM INJ 3 GM in SODIUM CHLORIDE 0.9% INJ 100 ML IV SCH (20:45)
[2017-02-08] MEDS: PANTOPRAZOLE SODIUM 40 MG VIAL IV PUSH SCH (20:49)
[2017-02-09] VITALS (7 sets, daily range): BP systolic 107–142; BP diastolic 64–79; PULSE 84–99; RESP 16–20; TEMP 98.1–99.9; O2SAT 93–97
[2017-02-09] MEDS: MORPHINE SULFATE 4 MG/ML INJ IV PUSH PRN ×3 (00:52→16:59)
[2017-02-09] MEDS: AMPICILLIN-SULBACTAM INJ 3 GM in SODIUM CHLORIDE 0.9% INJ 100 ML IV SCH ×4 (00:55→20:34)
[2017-02-09] MEDS: NS + KCL 20 MEQ INJ 1,000 ML IV SCH ×3 (03:26→16:46)
[2017-02-09] MEDS: ACETAMINOPHEN/HYDROcodone 325 MG/5 MG TAB PO PRN ×3 (04:17→20:34)
[2017-02-09] MEDS: ALBUTEROL SULFATE 90 MCG/ACT HFA 8 GM INHALER INH SCH ×4 (05:45→23:48)
[2017-02-09] MEDS: VITAMIN B CMPLX/VITC/FOLIC AC CAP PO SCH (08:24)
[2017-02-09] MEDS: CHOLECALCIFEROL (VIT D3) 1000 UNIT TAB PO SCH (08:24)
[2017-02-09] MEDS: SERTRALINE HCL 50 MG TAB PO SCH (08:25)
[2017-02-09] MEDS: POTASSIUM CHLORIDE 10 MEQ CONTROLLED RELEASE TAB PO SCH (08:25)
[2017-02-09] MEDS: CYCLOBENZAPRINE HCL 10 MG TAB PO SCH ×2 (08:26→20:34)
[2017-02-09] MEDS: BUDESONIDE-FORMOTEROL 80/4.5 MCG INHALER INH SCH (08:27)
[2017-02-09] MEDS: VANCOMYCIN 1,000 MG/NS 250 ML IV SCH ×4 (08:27→20:35)
--- NOTE | 2017-02-09 09:09 | HHI.PR ---
Subjective Remarks feeling better LUE- softer, less tense pain controlled no diarhea, nauea or vomiting Objective Vitals Vital Signs Date Time Temp Pulse Resp B/P Pulse Ox O2 Delivery O2 Flow Rate FiO2 02/09/17 08:00 98.7 88 18 136/75 93 02/09/17 05:29 18 02/09/17 04:00 Room Air 02/09/17 04:00 98.1 88 20 107/77 93 02/09/17 00:00 98.8 84 16 137/64 94 02/09/17 00:00 Room Air 02/08/17 20:00 100.3 93 16 146/66 95 02/08/17 20:00 91 02/08/17 16:00 100.9 98 18 116/73 97 02/08/17 12:00 98.6 98 18 110/60 95 I/O 02/08/17 02/08/17 02/08/17 02/09/17 02/09/17 02/09/17 06:59 14:59 22:59 06:59 14:59 22:59 Intake Total 1463 ml 960 ml 1380 ml 2754 ml Balance 1463 ml 960 ml 1380 ml 2754 ml Intake Oral 240 ml 960 ml 1380 ml 1380 ml IV Total 1223 ml 1374 ml # Voids 2 3 8 8 # Bowel Movements 0 1 0 0 Result Diagram: 02/08/17 0739 02/08/17 0739 Imaging Last Impressions Neck CT 02/08/17 0000 Signed Impressions: Service Date/Time: January 11:33 - CONCLUSION: No evidence of abscess or other acute process Iban Torre MD Upper Extremity Ultrasound 02/07/17 0000 Signed Impressions: Service Date/Time: Tuesday, February 07, 2017 17:43 - CONCLUSION: Normal examination. Zeke Shelton MD Objective Remarks awake and alert, oriented x 3 anicteric lungs clear regular rhythm abdomen soft, nontender LUE-swelling of entire LUE improves- softer, less tense- -, decrease erythnea, good peripheral pulses LE no edema A/P Problem List: (1) Sepsis ICD Code: A41.9 Status: Acute Assessment and Plan 56-year-old female presenting with fever or chills left upper extremity swelling and erythema Severe sepsis secondary to cellulitis of the left upper extremity with underlying lymphedema FF blood cultures 2 . Follow temperature curve- T max 100.9 Unasyn increased to 3 gm IV q 6. IV Vancomycin added to regimen doppler negative for DVT elevate LUE at all times- patient knowledgeable with lymphedema management- IV morphine when necessary for pain- prn po Lortab - appreciate ID recommendations Persistent Neck pain - no complains this am - no radiculopathy - Neck imaging study negative Hypokalemia- improved Incorporate IV KCL in IVF and by mouth potassium 10 meq daily recheck today. COPD in remission. Smoker. Patient counseled. Continue on MDIs. History of depression continue on sertraline Teds for DVT prophylaxis- patient up and ambulating around Problem Qualifiers (1) Sepsis: Qualified Code: A41.9 - Sepsis, due to unspecified organism Isa Sauceda MD Feb 09, 2017 09:09
[2017-02-09] MEDS: PANTOPRAZOLE SODIUM 40 MG VIAL IV PUSH SCH (18:46)
--- NOTE | 2017-02-09 18:57 | HHI.IDPN ---
Subjective Subjective Remarks LUE doing significantly better No fever improveng edema and erytheam and pain Antibiotics Unasyn, vanco Allergies: Coded Allergies: Furadantin (Verified Allergy, Severe, SEIZURES AND SWELLING, 09/08/16) Percocet (Unverified Allergy, Unknown, PROJECTILE VOMITING, 09/08/16) Percodan (Unverified Allergy, Unknown, PROJECTILE VOMITING, 09/08/16) Objective . Vital Signs Date Time Temp Pulse Resp B/P Pulse Ox O2 Delivery O2 Flow Rate FiO2 02/09/17 16:00 98.2 92 18 142/73 97 02/09/17 12:00 99.9 95 18 142/79 94 02/09/17 09:00 88 02/09/17 09:00 99 Room Air 02/09/17 08:00 98.7 88 18 136/75 93 02/09/17 05:29 18 02/09/17 04:00 Room Air 02/09/17 04:00 98.1 88 20 107/77 93 02/09/17 00:00 98.8 84 16 137/64 94 02/09/17 00:00 Room Air 02/08/17 20:00 100.3 93 16 146/66 95 02/08/17 20:00 91 02/08/17 02/08/17 02/09/17 15:00 23:00 07:00 Intake Total 960 ml 1380 ml 2754 ml Balance 960 ml 1380 ml 2754 ml Intake Oral 960 ml 1380 ml 1380 ml IV Total 1374 ml # Voids 3 8 8 # Bowel Movements 1 0 0 . Laboratory Tests Test 02/08/17 07:39 White Blood Count 13.2 TH/MM3 Red Blood Count 2.94 MIL/MM3 Hemoglobin 10.0 GM/DL Hematocrit 29.9 % Mean Corpuscular Volume 101.7 FL Mean Corpuscular Hemoglobin 34.1 PG Mean Corpuscular Hemoglobin 33.5 % Concent Red Cell Distribution Width 13.8 % Platelet Count 205 TH/MM3 Mean Platelet Volume 7.4 FL Neutrophils (%) (Auto) 87.5 % Lymphocytes (%) (Auto) 9.8 % Monocytes (%) (Auto) 2.4 % Eosinophils (%) (Auto) 0.1 % Basophils (%) (Auto) 0.2 % Neutrophils # (Auto) 11.6 TH/MM3 Lymphocytes # (Auto) 1.3 TH/MM3 Monocytes # (Auto) 0.3 TH/MM3 Eosinophils # (Auto) 0.0 TH/MM3 Basophils # (Auto) 0.0 TH/MM3 CBC Comment DIFF FINAL Differential Comment Laboratory Tests Test 02/08/17 07:39 Sodium Level 142 MEQ/L Potassium Level 3.9 MEQ/L Chloride Level 112 MEQ/L Carbon Dioxide Level 21.8 MEQ/L Anion Gap 8 MEQ/L Blood Urea Nitrogen 8 MG/DL Creatinine 0.60 MG/DL Estimat Glomerular Filtration 103 ML/MIN Rate Random Glucose 79 MG/DL Calcium Level 7.9 MG/DL Microbiology Date/Time Procedure Status Source Growth 02/07/17 16:01 Aerobic Blood Culture - Preliminary Resulted Blood Peripheral NO GROWTH IN 2 DAYS 02/07/17 16:01 Anaerobic Blood Culture - Preliminary Resulted Blood Peripheral NO GROWTH IN 2 DAYS 02/07/17 16:06 Aerobic Blood Culture - Preliminary Resulted Blood Peripheral NO GROWTH IN 2 DAYS 02/07/17 16:06 Anaerobic Blood Culture - Preliminary Resulted Blood Peripheral NO GROWTH IN 2 DAYS Imaging Last Impressions Neck CT 02/08/17 0000 Signed Impressions: Service Date/Time: January 11:33 - CONCLUSION: No evidence of abscess or other acute process Iban Torre MD Upper Extremity Ultrasound 02/07/17 0000 Signed Impressions: Service Date/Time: Tuesday, February 07, 2017 17:43 - CONCLUSION: Normal examination. Zeke Shelton MD Physical Exam CONSTITUTIONAL/GENERAL: This is an adequately nourished patient, in no apparent distress. TUBES/LINES/DRAINS: SKIN: No jaundice, rashes, or lesions. Skin temperature appropriate. Not diaphoretic. EYES: Pupils equal and round and reactive. Extraocular motions intact. No scleral icterus. No injection or drainage. Fundi not examined. ENT: Oral mucosae without visible erythema, exudates, masses, or lesions. CARDIOVASCULAR: Regular rate and rhythm without murmurs, gallops, or rubs. No JVD. Peripheral pulses symmetric. RESPIRATORY/CHEST: Symmetric, unlabored respirations. Clear to auscultation. Breath sounds equal bilaterally. No wheezes, rales, or rhonchi. GASTROINTESTINAL: Abdomen soft, non-tender, nondistended. No hepato-splenomegaly , or palpable masses. No guarding. Bowel sounds present. MUSCULOSKELETAL: Extremities without clubbing, cyanosis, Significantly improved swelling of RUE now about less than twice than contralateral + erythema, Less tender NEUROLOGICAL: Awake and alert. Motor and sensory grossly within normal limits. Follows commands. Clear speech. Moves all extremities. PSYCHIATRIC: No obvious anxiety/depression. no apparent hallucinations or other psychotic thought process. Assessment & Plan Remarks LUE cellulitis in the setting s of worsening chronic lymphedema - swelling is better NEck pain - h/o surgery, no acute findings on CT No clinically apparent compartment sd h/o ipsilateral axiallae dissection h/o breast ca cont vancomycin and unasyn to 3 gm cont with LUE elevation anticipate transition to po abx Discussed Condition With pt Trena Ortiz MD Feb 09, 2017 18:57
[2017-02-09] MEDS: ACETAMINOPHEN 500 MG CPLT PO PRN (19:04)
[2017-02-10] VITALS: BP 116/73; PULSE 93; RESP 16; TEMP 97.7; O2SAT 96
[2017-02-10] MEDS: AMPICILLIN-SULBACTAM INJ 3 GM in SODIUM CHLORIDE 0.9% INJ 100 ML IV SCH ×4 (01:01→20:17)
[2017-02-10] MEDS: NS + KCL 20 MEQ INJ 1,000 ML IV SCH ×3 (02:30→20:19)
[2017-02-10 04:00] VITALS: BP 135/88; PULSE 84; RESP 16; TEMP 98.3; O2SAT 97
[2017-02-10] MEDS: ACETAMINOPHEN/HYDROcodone 325 MG/5 MG TAB PO PRN ×3 (04:35→20:18)
[2017-02-10] MEDS: ALBUTEROL SULFATE 90 MCG/ACT HFA 8 GM INHALER INH SCH ×3 (05:45→17:24)
[2017-02-10 08:00] VITALS: BP 117/81; PULSE 81; RESP 16; TEMP 98.1; O2SAT 96
[2017-02-10] MEDS ORDERED: PHARMACY ORDERED LAB ONE (08:45)
[2017-02-10] MEDS: VANCOMYCIN 1,000 MG/NS 250 ML IV SCH ×2 (09:00)
[2017-02-10] MEDS: BUDESONIDE-FORMOTEROL 80/4.5 MCG INHALER INH SCH (09:00)
[2017-02-10] MEDS: VITAMIN B CMPLX/VITC/FOLIC AC CAP PO SCH (09:00)
[2017-02-10] MEDS: CHOLECALCIFEROL (VIT D3) 1000 UNIT TAB PO SCH (09:15)
[2017-02-10] MEDS: POTASSIUM CHLORIDE 10 MEQ CONTROLLED RELEASE TAB PO SCH (09:15)
[2017-02-10] MEDS: ACETAMINOPHEN 500 MG CPLT PO PRN (09:15)
[2017-02-10] MEDS: SERTRALINE HCL 50 MG TAB PO SCH (09:15)
[2017-02-10] MEDS: CYCLOBENZAPRINE HCL 10 MG TAB PO SCH ×2 (09:15→20:18)
[2017-02-10] MEDS: MORPHINE SULFATE 4 MG/ML INJ IV PUSH PRN ×3 (09:16→22:23)
--- NOTE | 2017-02-10 11:42 | HHI.PR ---
Subjective Remarks Left upper extremity feeling better - notes increase swelling when on dependent - d/w her we will put an IV pole to help with elevation afebrile no chills no diarrhea- c/o - no BM yet- states uses Senokot prn Objective Vitals Vital Signs Date Time Temp Pulse Resp B/P Pulse Ox O2 Delivery O2 Flow Rate FiO2 02/10/17 08:00 98.1 81 16 117/81 96 02/10/17 07:47 Room Air 02/10/17 04:00 98.3 84 16 135/88 97 02/10/17 00:00 97.7 93 16 116/73 96 02/09/17 20:30 Room Air 02/09/17 20:00 98.3 99 16 125/71 96 02/09/17 16:00 98.2 92 18 142/73 97 02/09/17 12:00 99.9 95 18 142/79 94 I/O 02/09/17 02/09/17 02/09/17 02/10/17 02/10/17 02/10/17 06:59 14:59 22:59 06:59 14:59 22:59 Intake Total 2754 ml 960 ml 1678 ml 480 ml Balance 2754 ml 960 ml 1678 ml 480 ml Intake Oral 1380 ml 960 ml 600 ml 480 ml IV Total 1374 ml 1078 ml # Voids 8 4 8 3 # Bowel Movements 0 0 0 0 Result Diagram: 02/08/17 0739 02/08/17 0739 Imaging Last Impressions Neck CT 02/08/17 0000 Signed Impressions: Service Date/Time: January 11:33 - CONCLUSION: No evidence of abscess or other acute process Iban Torre MD Upper Extremity Ultrasound 02/07/17 0000 Signed Impressions: Service Date/Time: Tuesday, February 07, 2017 17:43 - CONCLUSION: Normal examination. Zeke Shelton MD Objective Remarks awake and alert, oriented x 3 anicteric lungs clear regular rhythm abdomen soft, nontender LUE-swelling of entire LUE improves- soft, not pitting, no erythema, good peripheral pulses LE no edema A/P Problem List: (1) Sepsis ICD Code: A41.9 Status: Acute Assessment and Plan 56-year-old female presenting with fever or chills left upper extremity swelling and erythema Severe sepsis secondary to cellulitis of the left upper extremity with underlying lymphedema- T down History of breast vancer s/p mastectomy left FF blood cultures 2 .- negative so far Unasyn increased to 3 gm IV q 6. IV Vancomycin added to regimen 02/09 doppler negative for DVT elevate LUE at all times- patient knowledgeable with lymphedema management- IV morphine when necessary for pain- prn po Lortab - ID ff OP ff up with Dr. Gonzalez Persistent Neck pain- improved - no radiculopathy - Neck imaging study negative Hypokalemia- improved potassium 10 meq daily COPD in remission. Smoker. Patient counseled. Continue on MDIs. constipation- Senokot daily History of depression continue on sertraline Teds for DVT prophylaxis- patient up and ambulating around Problem Qualifiers (1) Sepsis: Qualified Code: A41.9 - Sepsis, due to unspecified organism Isa Sauceda MD Feb 10, 2017 11:42
[2017-02-10 12:00] VITALS: BP 129/79; PULSE 91; RESP 18; TEMP 98.3; O2SAT 94
[2017-02-10] MEDS: DOCUSATE SODIUM 50 MG/SENNA 8.6 MG TAB PO SCH (13:00)
[2017-02-10 16:00] VITALS: BP 132/67; PULSE 86; RESP 18; TEMP 97.2; O2SAT 96
[2017-02-10 20:00] VITALS: BP 165/84; PULSE 79; RESP 18; TEMP 98.3; O2SAT 98
[2017-02-10] MEDS: VANCOMYCIN INJ 1,250 MG in SODIUM CHLOR 0.9% 250 ML INJ 250 ML IV SCH (20:14)
[2017-02-10] MEDS: PANTOPRAZOLE SODIUM 40 MG VIAL IV PUSH SCH (20:25)
[2017-02-11] VITALS: BP 145/70; PULSE 96; RESP 18; TEMP 98.1; O2SAT 95
[2017-02-11] MEDS: AMPICILLIN-SULBACTAM INJ 3 GM in SODIUM CHLORIDE 0.9% INJ 100 ML IV SCH ×4 (02:17→20:38)
[2017-02-11] MEDS: NS + KCL 20 MEQ INJ 1,000 ML IV SCH (02:17)
[2017-02-11] MEDS: ACETAMINOPHEN/HYDROcodone 325 MG/5 MG TAB PO PRN ×4 (02:20→20:37)
[2017-02-11 04:00] VITALS: BP 136/79; PULSE 79; RESP 18; TEMP 97.9; O2SAT 96
[2017-02-11] MEDS: ALBUTEROL SULFATE 90 MCG/ACT HFA 8 GM INHALER INH SCH ×4 (06:24→16:55)
[2017-02-11] MEDS: MORPHINE SULFATE 4 MG/ML INJ IV PUSH PRN ×4 (06:25→23:27)
[2017-02-11 08:00] VITALS: BP 142/83; PULSE 80; RESP 18; TEMP 98.1; O2SAT 97
[2017-02-11] MEDS: BUDESONIDE-FORMOTEROL 80/4.5 MCG INHALER INH SCH (09:00)
[2017-02-11] MEDS: VITAMIN B CMPLX/VITC/FOLIC AC CAP PO SCH (09:00)
[2017-02-11] MEDS: POTASSIUM CHLORIDE 10 MEQ CONTROLLED RELEASE TAB PO SCH (09:07)
[2017-02-11] MEDS: CHOLECALCIFEROL (VIT D3) 1000 UNIT TAB PO SCH (09:08)
[2017-02-11] MEDS: SERTRALINE HCL 50 MG TAB PO SCH (09:08)
[2017-02-11] MEDS: CYCLOBENZAPRINE HCL 10 MG TAB PO SCH ×2 (09:09→20:37)
[2017-02-11] MEDS: DOCUSATE SODIUM 50 MG/SENNA 8.6 MG TAB PO SCH (09:09)
[2017-02-11] MEDS: VANCOMYCIN INJ 1,250 MG in SODIUM CHLOR 0.9% 250 ML INJ 250 ML IV SCH ×2 (09:10→20:41)
--- NOTE | 2017-02-11 11:11 | HHI.PR ---
Subjective Remarks feeling better afebrile good range of motion- no pain no diarrhea requesting for a PET scan Objective Vitals Vital Signs Date Time Temp Pulse Resp B/P Pulse Ox O2 Delivery O2 Flow Rate FiO2 02/11/17 08:32 Room Air 02/11/17 08:00 98.1 80 18 142/83 97 02/11/17 04:00 97.9 79 18 136/79 96 02/11/17 00:00 98.1 96 18 145/70 95 02/11/17 00:00 Room Air 02/10/17 20:00 Room Air 02/10/17 20:00 98.3 79 18 165/84 98 02/10/17 16:00 97.2 86 18 132/67 96 02/10/17 12:00 98.3 91 18 129/79 94 I/O 02/10/17 02/10/17 02/10/17 02/11/17 02/11/17 02/11/17 07:00 15:00 23:00 07:00 15:00 23:00 Intake Total 480 ml 1995 ml 2860 ml 1009 ml Output Total 5 ml Balance 480 ml 1995 ml 2860 ml 1004 ml Intake Oral 480 ml 720 ml 240 ml 480 ml IV Total 1275 ml 2620 ml 529 ml Output Urine Total 5 ml # Voids 3 5 2 # Bowel Movements 0 0 Result Diagram: 02/08/17 0739 02/08/17 0739 Imaging Last Impressions Neck CT 02/08/17 0000 Signed Impressions: Service Date/Time: January 11:33 - CONCLUSION: No evidence of abscess or other acute process Iban Torre MD Upper Extremity Ultrasound 02/07/17 0000 Signed Impressions: Service Date/Time: Tuesday, February 07, 2017 17:43 - CONCLUSION: Normal examination. Zeek Shelton MD Objective Remarks awake and alert, oriented x 3 anicteric lungs clear regular rhythm abdomen soft, nontender LUE-swelling of entire LUE improves- soft, nontender, still with some swelling- near baseline per patient LE no edema A/P Problem List: (1) Sepsis ICD Code: A41.9 Status: Acute Assessment and Plan 56-year-old female presenting with fever or chills left upper extremity swelling and erythema Severe sepsis secondary to cellulitis of the left upper extremity with underlying lymphedema- history of breast cancer S/P radical mastectomy left T down- clinically improving FF blood cultures 2 .- negative so far on Unasyn 3 gm IV q 6. + IV Vancomycin doppler negative for DVT elevate LUE at all times- patient knowledgeable with lymphedema management- IV morphine when necessary for pain- prn po Lortab - ID ff ff up with Dr. Gonzalez as OP- Neck pain- improved - no radiculopathy - Neck imaging study negative Hypokalemia- improved potassium 10 meq daily COPD in remission. Smoker. Patient counseled. Continue on MDIs. constipation- Senokot daily + BM History of depression continue on sertraline Teds for DVT prophylaxis- patient up and ambulating around Problem Qualifiers (1) Sepsis: Qualified Code: A41.9 - Sepsis, due to unspecified organism Isa Sauceda MD Feb 11, 2017 11:11
[2017-02-11 12:00] VITALS: BP 146/80; PULSE 106; RESP 18; TEMP 98.3; O2SAT 95
[2017-02-11 16:00] VITALS: BP 150/69; PULSE 76; RESP 18; TEMP 98.6; O2SAT 98
[2017-02-11] MEDS: ACETAMINOPHEN 500 MG CPLT PO PRN (18:43)
[2017-02-11 20:00] VITALS: BP 136/57; PULSE 82; RESP 18; TEMP 98.2; O2SAT 97
[2017-02-11] MEDS: PANTOPRAZOLE SODIUM 40 MG VIAL IV PUSH SCH (20:38)
[2017-02-12] VITALS: BP 136/80; PULSE 78; RESP 18; TEMP 97.8; O2SAT 97
[2017-02-12] MEDS: AMPICILLIN-SULBACTAM INJ 3 GM in SODIUM CHLORIDE 0.9% INJ 100 ML IV SCH ×4 (02:00→21:41)
[2017-02-12 04:00] VITALS: BP 131/80; PULSE 83; RESP 16; TEMP 98.3; O2SAT 95
[2017-02-12] MEDS: ACETAMINOPHEN/HYDROcodone 325 MG/5 MG TAB PO PRN ×5 (04:36→21:48)
[2017-02-12] MEDS: ALBUTEROL SULFATE 90 MCG/ACT HFA 8 GM INHALER INH SCH ×5 (05:55→23:08)
[2017-02-12 08:00] VITALS: BP 139/80; PULSE 74; RESP 18; TEMP 99.3; O2SAT 94
[2017-02-12 08:32] LABS: HEMATOCRIT 34.7 % (35.0-46.0); MEAN CELL VOLUME 100.3 FL (80.0-100.0); MEAN CORPUSCULAR HEMOGLOBIN 33.7 PG (27.0-34.0); MEAN CORPUSCULAR HGB CONC 33.6 % (32.0-36.0); PLATELET COUNT 296 TH/MM3 (150-450); RED BLOOD COUNT 3.46 MIL/MM3 (4.00-5.30); REVIEW FLAG FINAL; WHITE BLOOD COUNT 5.5 TH/MM3 (4.0-11.0)
[2017-02-12] MEDS: BUDESONIDE-FORMOTEROL 80/4.5 MCG INHALER INH SCH (08:42)
[2017-02-12] MEDS ORDERED: PHARMACY ORDERED LAB ONE (08:45)
[2017-02-12] MEDS: CYCLOBENZAPRINE HCL 10 MG TAB PO SCH ×2 (08:48→21:41)
[2017-02-12] MEDS: DOCUSATE SODIUM 50 MG/SENNA 8.6 MG TAB PO SCH (08:48)
[2017-02-12] MEDS: POTASSIUM CHLORIDE 10 MEQ CONTROLLED RELEASE TAB PO SCH (08:48)
[2017-02-12] MEDS: VANCOMYCIN INJ 1,250 MG in SODIUM CHLOR 0.9% 250 ML INJ 250 ML IV SCH (08:48)
[2017-02-12] MEDS: VITAMIN B CMPLX/VITC/FOLIC AC CAP PO SCH (08:48)
[2017-02-12] MEDS: CHOLECALCIFEROL (VIT D3) 1000 UNIT TAB PO SCH (08:49)
[2017-02-12] MEDS: SERTRALINE HCL 50 MG TAB PO SCH (08:49)
--- NOTE | 2017-02-12 09:23 | HHI.PR ---
Subjective Remarks feeling better edema LUE improved Objective Vitals Vital Signs Date Time Temp Pulse Resp B/P Pulse Ox O2 Delivery O2 Flow Rate FiO2 02/12/17 08:00 99.3 74 18 139/80 94 02/12/17 04:00 98.3 83 16 131/80 95 02/12/17 00:00 97.8 78 18 136/80 97 02/12/17 00:00 Room Air 02/11/17 20:00 Room Air 02/11/17 20:00 98.2 82 18 136/57 97 02/11/17 16:00 98.6 76 18 150/69 98 02/11/17 12:00 98.3 106 18 146/80 95 I/O 02/11/17 02/11/17 02/11/17 02/12/17 02/12/17 02/12/17 06:59 14:59 22:59 06:59 14:59 22:59 Intake Total 1009 ml 720 ml 1230 ml 240 ml Output Total 5 ml 1500 ml Balance 1004 ml -780 ml 1230 ml 240 ml Intake Oral 480 ml 720 ml 480 ml 240 ml IV Total 529 ml 750 ml Output Urine Total 5 ml 1500 ml # Voids 3 3 # Bowel Movements 0 0 0 Result Diagram: 02/12/17 0510 02/12/17 0805 Imaging Last Impressions Neck CT 02/08/17 0000 Signed Impressions: Service Date/Time: January 11:33 - CONCLUSION: No evidence of abscess or other acute process Iban Torre MD Upper Extremity Ultrasound 02/07/17 0000 Signed Impressions: Service Date/Time: Tuesday, February 07, 2017 17:43 - CONCLUSION: Normal examination. Zeke Shelton MD Objective Remarks awake and alert, oriented x 3 anicteric lungs clear regular rhythm LUE-swelling of entire LUE improves- soft, nontender, mild swelling- near baseline, good ROM LE no edema A/P Problem List: (1) Sepsis ICD Code: A41.9 Status: Acute Assessment and Plan 56-year-old female presenting with fever or chills left upper extremity swelling and erythema Severe sepsis secondary to cellulitis of the left upper extremity with underlying lymphedema- T down History of breast vancer s/p mastectomy left FF blood cultures 2 .- negative so far Unasyn 3 gm IV q 6. IV Vancomycin added to regimen 02/09 doppler negative for DVT elevate LUE at all times- patient knowledgeable with lymphedema management- IV morphine when necessary for pain- prn po Lortab - ID ff OP ff up with Dr. Gonzalez will consult PT- regarding management for lymphedema while in house OP ff up with her Lymphedema Therapist on DC WBC down. Blood culture negative x 4 days Persistent Neck pain- improved - no radiculopathy - Neck imaging study negative Hypokalemia- improved potassium 10 meq daily COPD in remission. Smoker. Patient counseled. Continue on MDIs. constipation- Senokot daily History of depression continue on sertraline Teds for DVT prophylaxis- patient up and ambulating around DC planning Problem Qualifiers (1) Sepsis: Qualified Code: A41.9 - Sepsis, due to unspecified organism Isa Sauceda MD Feb 12, 2017 09:23
[2017-02-12] MEDS: MORPHINE SULFATE 4 MG/ML INJ IV PUSH PRN ×2 (11:10→19:38)
[2017-02-12 12:00] VITALS: BP 133/86; PULSE 75; RESP 18; TEMP 98.9; O2SAT 94
[2017-02-12 16:00] VITALS: BP 128/77; PULSE 86; RESP 18; TEMP 98.6; O2SAT 96
--- NOTE | 2017-02-12 18:26 | HHI.IDPN ---
Subjective Subjective Remarks much better No fever significantly reduced edema erytheam and pain Antibiotics Unasyn, vanco Allergies: Coded Allergies: Furadantin (Verified Allergy, Severe, SEIZURES AND SWELLING, 09/08/16) Percocet (Unverified Allergy, Unknown, PROJECTILE VOMITING, 09/08/16) Percodan (Unverified Allergy, Unknown, PROJECTILE VOMITING, 09/08/16) Objective . Vital Signs Date Time Temp Pulse Resp B/P Pulse Ox O2 Delivery O2 Flow Rate FiO2 02/12/17 16:00 98.6 86 18 128/77 96 02/12/17 14:15 18 02/12/17 12:00 98.9 75 18 133/86 94 02/12/17 11:18 18 02/12/17 08:00 99.3 74 18 139/80 94 02/12/17 07:15 94 Room Air 02/12/17 04:00 98.3 83 16 131/80 95 02/12/17 00:00 97.8 78 18 136/80 97 02/12/17 00:00 Room Air 02/11/17 20:00 Room Air 02/11/17 20:00 98.2 82 18 136/57 97 02/11/17 02/11/17 02/12/17 15:00 23:00 07:00 Intake Total 720 ml 1230 ml 240 ml Output Total 1500 ml Balance -780 ml 1230 ml 240 ml Intake Oral 720 ml 480 ml 240 ml IV Total 750 ml Output Urine Total 1500 ml # Voids 3 3 # Bowel Movements 0 0 0 . Laboratory Tests Test 02/12/17 05:10 White Blood Count 5.5 TH/MM3 Red Blood Count 3.46 MIL/MM3 Hemoglobin 11.7 GM/DL Hematocrit 34.7 % Mean Corpuscular Volume 100.3 FL Mean Corpuscular Hemoglobin 33.7 PG Mean Corpuscular Hemoglobin 33.6 % Concent Red Cell Distribution Width 14.0 % Platelet Count 296 TH/MM3 Mean Platelet Volume 7.2 FL Laboratory Tests Test 02/12/17 08:05 Creatinine 0.61 MG/DL Estimat Glomerular Filtration 101 ML/MIN Rate Imaging Last Impressions Neck CT 02/08/17 0000 Signed Impressions: Service Date/Time: January 11:33 - CONCLUSION: No evidence of abscess or other acute process Iban Torre MD Upper Extremity Ultrasound 02/07/17 0000 Signed Impressions: Service Date/Time: Tuesday, February 07, 2017 17:43 - CONCLUSION: Normal examination. Zeke Shelton MD Physical Exam CONSTITUTIONAL/GENERAL: This is an adequately nourished patient, in no apparent distress. TUBES/LINES/DRAINS: SKIN: No jaundice, rashes, or lesions. CARDIOVASCULAR: Regular rate and rhythm without murmurs, gallops, or rubs. No JVD. Peripheral pulses symmetric. MUSCULOSKELETAL: Extremities without clubbing, cyanosis, markedly improved swelling of RUE now slightly bigger than contralateral resolved nearly completely erythema, not tender Assessment & Plan Remarks LUE cellulitis in the setting s of worsening chronic lymphedema - marked clinical improvement NEck pain - h/o surgery, no acute findings on CT No clinically apparent compartment sd h/o ipsilateral axiallae dissection h/o breast ca cont vancomycin and unasyn to 3 gm cont with LUE elevation change to abx tomorrow: keflex 500 q 6 hrs + doxycyline 100 bid for 7 more days OK to dc tomorrow if cont to improve Trena Ortiz MD Feb 12, 2017 18:26
[2017-02-12 20:00] VITALS: BP 144/85; PULSE 77; RESP 16; TEMP 98; O2SAT 94
[2017-02-12] MEDS: PANTOPRAZOLE SODIUM 40 MG VIAL IV PUSH SCH (21:41)
[2017-02-13] VITALS: BP 129/75; PULSE 88; RESP 16; TEMP 98; O2SAT 92
[2017-02-13] MEDS ORDERED: VANCOMYCIN 1,000 MG/NS 250 ML IV SCH ×2
[2017-02-13] MEDS: MORPHINE SULFATE 4 MG/ML INJ IV PUSH PRN (01:07)
[2017-02-13] MEDS: AMPICILLIN-SULBACTAM INJ 3 GM in SODIUM CHLORIDE 0.9% INJ 100 ML IV SCH ×2 (01:09→08:41)
[2017-02-13] MEDS: ACETAMINOPHEN/HYDROcodone 325 MG/5 MG TAB PO PRN ×2 (02:27→06:52)
[2017-02-13 04:00] VITALS: BP 121/74; PULSE 77; RESP 18; TEMP 98.2; O2SAT 93
[2017-02-13] MEDS: ALBUTEROL SULFATE 90 MCG/ACT HFA 8 GM INHALER INH SCH (06:00)
[2017-02-13 08:00] VITALS: BP 128/88; PULSE 63; RESP 18; TEMP 98.9; O2SAT 97
[2017-02-13 08:01] VITALS: RESP 18
[2017-02-13] MEDS: DOCUSATE SODIUM 50 MG/SENNA 8.6 MG TAB PO SCH (08:46)
[2017-02-13] MEDS: SERTRALINE HCL 50 MG TAB PO SCH (08:46)
[2017-02-13] MEDS: CYCLOBENZAPRINE HCL 10 MG TAB PO SCH (08:46)
[2017-02-13] MEDS: VITAMIN B CMPLX/VITC/FOLIC AC CAP PO SCH (08:46)
[2017-02-13] MEDS: POTASSIUM CHLORIDE 10 MEQ CONTROLLED RELEASE TAB PO SCH (08:46)
[2017-02-13] MEDS: CHOLECALCIFEROL (VIT D3) 1000 UNIT TAB PO SCH (08:47)
[2017-02-13] MEDS: BUDESONIDE-FORMOTEROL 80/4.5 MCG INHALER INH SCH (08:52)
--- NOTE | 2017-02-13 08:55 | HHI.PR ---
Subjective Remarks doing much much better arm size- much improved, no erythema tolerating po well Objective Vitals Vital Signs Date Time Temp Pulse Resp B/P Pulse Ox O2 Delivery O2 Flow Rate FiO2 02/13/17 08:01 18 02/13/17 04:00 98.2 77 18 121/74 93 02/13/17 00:00 98.0 88 16 129/75 92 02/12/17 20:15 Room Air 02/12/17 20:00 98.0 77 16 144/85 94 02/12/17 16:00 98.6 86 18 128/77 96 02/12/17 12:00 98.9 75 18 133/86 94 02/12/17 11:18 18 I/O 02/12/17 02/12/17 02/12/17 02/13/17 02/13/17 02/13/17 06:59 14:59 22:59 06:59 14:59 22:59 Intake Total 240 ml 960 ml 690 ml 360 ml Balance 240 ml 960 ml 690 ml 360 ml Intake Oral 240 ml 960 ml 240 ml 360 ml IV Total 450 ml # Voids 3 3 3 2 # Bowel Movements 0 1 0 0 Result Diagram: 02/12/17 0510 02/12/17 0805 Imaging Last Impressions Neck CT 02/08/17 0000 Signed Impressions: Service Date/Time: January 11:33 - CONCLUSION: No evidence of abscess or other acute process Iban Torre MD Upper Extremity Ultrasound 02/07/17 0000 Signed Impressions: Service Date/Time: Tuesday, February 07, 2017 17:43 - CONCLUSION: Normal examination. Zeke Shelton MD Objective Remarks awake and alert, oriented x 3 anicteric lungs clear regular rhythm LUE-swelling of entire LUE improved- soft, nontender, mild swelling- near baseline, good ROM, no erythema, good pulses LE no edema A/P Problem List: (1) Sepsis ICD Code: A41.9 Status: Acute Assessment and Plan 56-year-old female presenting with fever or chills left upper extremity swelling and erythema Severe sepsis secondary to cellulitis of the left upper extremity with underlying lymphedema- T down History of breast vancer s/p mastectomy left- clinically improved FF blood cultures 2 .- negative so far Unasyn 3 gm IV q 6. IV Vancomycin added to regimen 02/09 doppler negative for DVT elevate LUE at all times- patient knowledgeable with lymphedema management- IV morphine when necessary for pain- prn po Lortab - ID ff OP ff up with Dr. Gonzalez will consult PT- regarding management for lymphedema while in house OP ff up with her Lymphedema Therapist on DC WBC down. Blood culture negative DC home today- Keflex 500 mg po q 6 + dozyccyline 100 mg po bid x 7 days Lortab prn for pain Persistent Neck pain- improved - no radiculopathy - Neck imaging study negative Hypokalemia- improved potassium 10 meq daily COPD in remission. Smoker. Patient counseled. Continue on MDIs. constipation- Senokot daily History of depression continue on sertraline Teds for DVT prophylaxis- patient up and ambulating around - home today Problem Qualifiers (1) Sepsis: Qualified Code: A41.9 - Sepsis, due to unspecified organism Isa Sauceda MD Feb 13, 2017 08:55
[2017-02-13] MEDS ORDERED: DOXY1CAP91 PO (08:59)
[2017-02-13] MEDS ORDERED: CEPH-460 PO (09:00)
[2017-02-13] MEDS ORDERED: HYDR-3516 PO (09:01)
--- NOTE | 2017-02-13 09:04 | HHI.DS ---
Discharge Summary Admission Date Feb 07, 2017 at 17:47 Discharge Date: Feb 13, 2017 Admitting Diagnosis Sepsis (Cellulitis), Hypokalemia (1) Sepsis ICD Code: A41.9 Diagnosis: Principal Procedures none Brief History - From Admission Patient is a very pleasant 56 years old female with history of breast cancer status post left mastectomy with this morning complained of tightness in the muscles around the neck area and left upper arm deltoid area. Associated with feverish sensation, chills and a MAXIMUM TEMPERATURE of 102.5. here in the emergency room.. Patient has chronic swelling of the left upper extremity from mastectomy and uses a lymphedema machine wrap around her arm on a regular basis. Patient states that swelling and is more than usual and more infiltrated. Also noted increased amount of left upper extremity. Came in here and was noted to be tachycardic Patient admitted for further evaluation and management. Patient with history of intolerance with narcotics specifically Lortab and Percocet with adverse reaction of nausea vomiting however can tolerate it if she takes Zofran with it which slight decrease the nausea. Tramadol does nothing for her. CBC/BMP: 02/12/17 0510 02/12/17 0805 Significant Findings Laboratory Tests Test 02/10/17 02/12/17 02/12/17 10:25 05:10 08:05 Vancomycin Level Trough 12.2 MCG/ML 21.4 MCG/ML (5.0-10.0) (5.0-10.0) Red Blood Count 3.46 MIL/MM3 (4.00-5.30) Hematocrit 34.7 % (35.0-46.0) Mean Corpuscular Volume 100.3 FL (80.0-100.0) Imaging Last Impressions Neck CT 02/08/17 0000 Signed Impressions: Service Date/Time: January 11:33 - CONCLUSION: No evidence of abscess or other acute process Iban Torre MD Upper Extremity Ultrasound 02/07/17 0000 Signed Impressions: Service Date/Time: Tuesday, February 07, 2017 17:43 - CONCLUSION: Normal examination. Zeke Shelton MD PE at Discharge awake and alert, oriented x 3 anicteric lungs clear regular rhythm LUE-swelling of entire LUE improved- soft, nontender, mild swelling- near baseline, good ROM, no erythema, good pulses LE no edema Pt update on day of discharge afebrile very motivarted with lymphedema care pain controlled swelling and erytehma much improved Hospital Course 56-year-old female presenting with fever or chills left upper extremity swelling and erythema Severe sepsis secondary to cellulitis of the left upper extremity with underlying lymphedema- T down History of breast vancer s/p mastectomy left- clinically improved FF blood cultures 2 .- negative so far Unasyn 3 gm IV q 6. IV Vancomycin added to regimen 02/09 doppler negative for DVT elevate LUE at all times- patient knowledgeable with lymphedema management- IV morphine when necessary for pain- prn po Lortab - ID ff OP ff up with Dr. Gonzalez will consult PT- regarding management for lymphedema while in house OP ff up with her Lymphedema Therapist on DC WBC down. Blood culture negative DC home today- Keflex 500 mg po q 6 + dozyccyline 100 mg po bid x 7 days Lortab prn for pain Persistent Neck pain- improved - no radiculopathy - Neck imaging study negative Hypokalemia- improved potassium 10 meq daily COPD in remission. Smoker. Patient counseled. Continue on MDIs. constipation- Senokot daily History of depression continue on sertraline Teds for DVT prophylaxis- patient up and ambulating around - home today Pt Condition on Discharge: Good Discharge Disposition: Discharge Home Discharge Time: <= 30 minutes Discharge Instructions DIET: Follow Instructions for: As Tolerated, No Restrictions Speech Therapy-Diet Recommends: Regular Activities you can perform: Weight Bearing as [place] Other Activity Instructions: Lymphedema prevention instructions Follow up Referrals: PCP Follow-up - 1 Week New Medications: Cephalexin (Keflex) 500 Mg Capsule 500 MG PO Q6H Infection #28 Ref 0 CAP Doxycycline (Monohydrate) (Doxycycline) 100 Mg Cap 100 MG PO BID Infection #14 Ref 0 TAB Hydrocodone-Acetaminophen (Hydrocodone-Acetaminophen) 5-325 mg Tab 1 TAB PO Q6HR PRN PAIN SCALE 4 TO 10 #28 Ref 0 TAB Continued Medications: Albuterol 18 GM Inh (Ventolin Hfa 18 GM Inh) 90 Mcg/Act Aer 2 PUFF INH Q4-6H PRN SHORTNESS OF BREATH #1 Ref 0 INHALER Budesonide-Formoterol Inh (Symbicort Inh) 80-4.5 Mcg/Act Aero 1 PUFF INH DAILY Asthma Management #1 Ref 0 INHALER Cholecalciferol (Vitamin D3) 2,000 Unit Cap 2000 UNITS PO DAILY Nutritional Supplement #1 Ref 0 BOTTLE Cyclobenzaprine (Flexeril) 10 Mg Tab 10 MG PO BID Muscle Spasm #90 Ref 0 TAB Omeprazole (Omeprazole) 20 Mg Tab 20 MG PO DAILY #30 Ref 0 TAB Ondansetron Odt (Zofran Odt) 4 Mg Tab 4 MG SL Q6HR PRN Nausea/Vomiting #30 Ref 0 TAB Sertraline (Sertraline) 25 Mg Tab 25 MG PO DAILY #30 Ref 0 TAB Vitamin B Complex Vit C No.4 (Super B Complex) 150 Mg Tablet 150 MG PO DAILY Discontinued Medications: Acetaminophen (Mapap) 500 Mg Tab 500 MG PO Q6HR PRN PAIN/FEVER Ref 0 TAB Isa Sauceda MD Feb 13, 2017 09:04
[2017-02-14] MEDS ORDERED: PHARMACY ORDERED LAB ONE (11:45)
== END 2017-02-13 11:31 | disposition home or self-care (01) | DRG 872 ==
LOC: NEPC 14:02 → NEDA 17:47 → N04A 20:43
PROVIDERS: ADMIT Internal Medicine; ATTEND Internal Medicine
DX: A41.9 Sepsis, unspecified organism (principal); F32.9 Major depressive disorder, single episode, unspecified; L03.114 Cellulitis of left upper limb; J44.9 Chronic obstructive pulmonary disease, unspecified; F41.9 Anxiety disorder, unspecified; J45.909 Unspecified asthma, uncomplicated; M19.90 Unspecified osteoarthritis, unspecified site; F17.210 Nicotine dependence, cigarettes, uncomplicated; E87.6 Hypokalemia; I97.2 Postmastectomy lymphedema syndrome; Y83.8 Other surgical procedures as the cause of abnormal reaction of the patient, or of later complication, without mention of misadventure at the time of the procedure; R65.20 Severe sepsis without septic shock; K59.00 Constipation, unspecified; M54.2 Cervicalgia; R00.0 Tachycardia, unspecified; Z92.3 Personal history of irradiation; Q63.1 Lobulated, fused and horseshoe kidney; Z92.21 Personal history of antineoplastic chemotherapy; Z85.3 Personal history of malignant neoplasm of breast
CPT/HCPCS: 70490; 76937; 80048; 80053; 80202; 81001; 82565; 83605; 85025; 85027; 87040; 93971; 96360; C9113; J0295; J2270; J2405; J3370; J3480; J7030; J7050

== ENCOUNTER 2017-08-29 16:24 | Inpatient (IN) | payer OTHER, MEDICAID, MEDICARE ==
[~2017-08-29] VITALS: Ht 175.3 cm; Wt 62.6 kg
[2017-08-29] VITALS (8 sets, daily range): BP systolic 116–159; BP diastolic 71–93; PULSE 103–119; RESP 16–22; TEMP 98.2–102.9; O2SAT 95–98
[~2017-08-29 16:24] MED LIST changes: -AUGM875T PO; +CEPH-460 PO; +CYCL10TA PO; +DOXY1CAP91 PO; +HYDR-3516 PO; -HYDR-3580 PO; -IBUP-232 PO; -OMEP20TA PO; +OMEP20TA93 PO; +SERT25TA83 PO; +VITA150T PO; +VITA2000 PO
[2017-08-29] MEDS ORDERED: SODIUM CHLOR 0.9% 1000 ML INJ 1,000 ML IV ONE (16:53)
[2017-08-29] MEDS ORDERED: SODIUM CHLOR 0.9% 1000 ML INJ 800 ML IV ONE (16:53)
[2017-08-29] MEDS ORDERED: ACETAMINOPHEN 500 MG CPLT PO ONE (17:00)
[2017-08-29] MEDS ORDERED: LEVOFLOXACIN 750 MG PREMIX INJ 150 ML IV ONE (17:00)
--- NOTE | 2017-08-29 17:07 | PD ---
HPI Chief Complaint: Fever Time Seen by Provider: 16:45 Travel History International Travel<30 days: No Contact w/Intl Traveler<30days: No History of Present Illness HPI Patient was seen and examined in the presence of a nurse at all times This is a 57-year-old female who presents for fever and cough. She states that she has had 3 weeks of intermittently productive cough. She states that she feels sore on her left chest wall/ribs from coughing. Today, she developed fever. She states that she had one episode of nausea and nonbilious, nonbloody emesis with EMS, she has not otherwise been vomiting. No abdominal pain. No rash, headache, neck pain or stiffness. No difficulty breathing, speaking, swallowing. No prior treatment for the fever. Symptoms are moderate in severity. Onset gradual. She also notes that her left arm is warm to the touch and has diffuse erythema. She has a history of lymphedema and cellulitis here. PFSH Past Medical History Arthritis: Yes Asthma: Yes Blood Disorders: No Anxiety: Yes Cancer: Yes (LEFT BREAST) Cardiovascular Problems: No Chemotherapy: Yes COPD: Yes Diminished Hearing: No Endocrine: No Gastrointestinal Disorders: Yes (VOMITING FOR 1 YEAR DUE TO CHEMO) Genitourinary: Yes ("HORSESHOE KIDNEYS" (HOOKED TOGETHER, DEFORMED)) Headaches: Yes Immune Disorder: Yes Implanted Vascular Access Dvce: Yes Musculoskeletal: Yes Neurologic: Yes Psychiatric: Yes Respiratory: Yes (copd) Immunizations Current: No Radiation Therapy: Yes Menopausal: Yes Past Surgical History Body Medical Devices: METAL IN NECK, BROKE C2 Gynecologic Surgery: Yes (L BREAST MASTECTOMY PARTIAL, HYSTERECTOMY) Hysterectomy: Yes Neurologic Surgery: Yes (C2 NECK SURGERY) Other Surgery: Yes (PORT REMOVED 2011) Social History Alcohol Use: Yes (RARE) Tobacco Use: Yes (1/2 PPD) Substance Use: Yes (MARIJUANA ) Allergies-Medications (Allergen,Severity, Reaction): Coded Allergies: nitrofurantoin (Unverified Allergy, Severe, SEIZURES AND SWELLING, 08/29/17 ) acetaminophen (Unverified Allergy, Unknown, PROJECTILE VOMITING, 08/29/17) aspirin (Unverified Allergy, Unknown, PROJECTILE VOMITING, 08/29/17) oxycodone (Unverified Allergy, Unknown, PROJECTILE VOMITING, 08/29/17) Reported Meds & Prescriptions Reported Meds & Active Scripts Active Reported Multiple Vitamin 1 Tab 1 Tab PO DAILY Flexeril (Cyclobenzaprine HCl) 10 Mg Tab 10 Mg PO BID Sertraline (Sertraline HCl) 25 Mg Tab 25 Mg PO DAILY Omeprazole 20 Mg Tab 20 Mg PO DAILY Symbicort Inh (Budesonide/Formoterol Fumarate) 80-4.5 Mcg/Act Aero 1 Puff INH DAILY Ventolin Hfa 18 GM Inh (Albuterol Sulfate) 90 Mcg/Act Aer 2 Puff INH Q4-6H PRN Review of Systems Except as stated in HPI: all other systems reviewed are Neg Physical Exam Narrative GENERAL: Alert, well nourished, well appearing patient resting on the bed in no acute distress. Vital Signs reviewed SKIN: Focused skin assessment warm/dry. Left upper extremity has diffuse erythema and increased warmth. No abscess formation. No crepitus or bulla. Compartments are soft of the left arm is more swollen than right. Patient notes a history of lymphedema status post left-sided breast cancer HEAD: Atraumatic. Normocephalic. EYES: Pupils equal and round. No scleral icterus. No injection or drainage. ENT: No nasal bleeding or discharge. Mucous membranes pink and moist. TMs are clear bilaterally. No tenderness over the mastoids. Posterior oropharynx with no erythema, edema, exudate. Uvula is midline. NECK: Trachea midline. No JVD. Spontaneous, painless full range of motion with no meningismus CARDIOVASCULAR: Tachycardic with a regular rhythm. No murmur appreciated. Extremities warm and well perfused with bounding peripheral pulses RESPIRATORY: No accessory muscle use. Clear to auscultation. Breath sounds equal bilaterally. Breathing easily and speaking in full sentences GASTROINTESTINAL: Abdomen soft, non-tender, nondistended. Normal bowel sounds. No rigid, rebound, guarding MUSCULOSKELETAL: No obvious deformities. No clubbing. No cyanosis. No edema. Compartments are soft NEUROLOGICAL: Awake and alert. No obvious cranial nerve deficits. Motor grossly within normal limits. Normal speech. Sensation intact. Data Data Last Documented VS Vital Signs Date Time Temp Pulse Resp B/P (MAP) Pulse Ox O2 Delivery O2 Flow Rate FiO2 08/29/17 18:14 102.9 109 20 128/71 (90) 97 Room Air Orders Orders Sepsis Workup Initiated (08/29/17 ) Complete Blood Count With Diff (08/29/17 16:53) Comprehensive Metabolic Panel (08/29/17 16:53) Prothrombin Time / Inr (Pt) (08/29/17 16:53) Act Partial Throm Time (Ptt) (08/29/17 16:53) Lactic Acid Sepsis Protocol (08/29/17 16:53) Magnesium (Mg) (08/29/17 16:53) Lipase (08/29/17 16:53) Urinalysis - C+S If Indicated (08/29/17 16:53) Influenzae A/B Antigen (08/29/17 16:53) Blood Culture (08/29/17 16:53) Chest, Pa & Lat (08/29/17 16:53) Ecg Monitoring (08/29/17 16:53) Iv Access Insert/Monitor (08/29/17 16:53) Oximetry (08/29/17 16:53) Sodium Chlor 0.9% 1000 Ml Inj (Ns 1000 M (08/29/17 16:53) Sodium Chlor 0.9% 1000 Ml Inj (Ns 1000 M (08/29/17 16:53) Acetaminophen (Tylenol) (08/29/17 17:00) Levofloxacin 750 Mg Premix Inj (Levaquin (08/29/17 17:00) Vancomycin Inj (Vancomycin Inj) (08/29/17 18:30) Admit Order (Ed Use Only) (08/29/17 18:31) Labs Laboratory Tests Test 08/29/17 17:00 08/29/17 17:40 White Blood Count 11.4 TH/MM3 Red Blood Count 3.65 MIL/MM3 Hemoglobin 12.1 GM/DL Hematocrit 36.1 % Mean Corpuscular Volume 98.7 FL Mean Corpuscular Hemoglobin 33.0 PG Mean Corpuscular Hemoglobin Concent 33.5 % Red Cell Distribution Width 12.8 % Platelet Count 291 TH/MM3 Mean Platelet Volume 7.8 FL Neutrophils (%) (Auto) 91.9 % Lymphocytes (%) (Auto) 5.4 % Monocytes (%) (Auto) 1.5 % Eosinophils (%) (Auto) 0.2 % Basophils (%) (Auto) 1.0 % Neutrophils # (Auto) 10.5 TH/MM3 Lymphocytes # (Auto) 0.6 TH/MM3 Monocytes # (Auto) 0.2 TH/MM3 Eosinophils # (Auto) 0.0 TH/MM3 Basophils # (Auto) 0.1 TH/MM3 CBC Comment DIFF FINAL Differential Comment Prothrombin Time 10.3 SEC Prothromb Time International Ratio 1.0 RATIO Activated Partial Thromboplast Time 22.0 SEC Blood Urea Nitrogen 11 MG/DL Creatinine 0.73 MG/DL Random Glucose 116 MG/DL Total Protein 7.2 GM/DL Albumin 3.6 GM/DL Calcium Level 8.2 MG/DL Magnesium Level 1.7 MG/DL Alkaline Phosphatase 100 U/L Aspartate Amino Transf (AST/SGOT) 14 U/L Alanine Aminotransferase (ALT/SGPT) 13 U/L Total Bilirubin 0.6 MG/DL Sodium Level 137 MEQ/L Potassium Level 3.1 MEQ/L Chloride Level 104 MEQ/L Carbon Dioxide Level 21.9 MEQ/L Anion Gap 11 MEQ/L Estimat Glomerular Filtration Rate 82 ML/MIN Lactic Acid Level 1.6 mmol/L Lipase 65 U/L Urine Color YELLOW Urine Turbidity CLEAR Urine pH 5.0 Urine Specific [place] 1.016 Urine Protein NEG mg/dL Urine Glucose (UA) NEG mg/dL Urine Ketones NEG mg/dL Urine Occult Blood LARGE Urine Nitrite NEG Urine Bilirubin NEG Urine Leukocyte Esterase NEG Urine RBC 4-9 /hpf Urine WBC 6-8 /hpf Urine Squamous Epithelial Cells 0-5 /hpf Microscopic Urinalysis Comment CATH-CULT NOT IND MDM Medical Decision Making Medical Screen Exam Complete: Yes Emergency Medical Condition: Yes Medical Record Reviewed: Yes Interpretation(s) Last 24 hours Impressions Chest X-Ray 08/29/17 1653 Signed Impressions: Service Date/Time: Tuesday, August 29, 2017 17:03 - CONCLUSION: No acute abnormality is identified. Iban Ryan MD Laboratory Tests Test 08/29/17 17:00 08/29/17 17:40 White Blood Count 11.4 TH/MM3 Red Blood Count 3.65 MIL/MM3 Hemoglobin 12.1 GM/DL Hematocrit 36.1 % Mean Corpuscular Volume 98.7 FL Mean Corpuscular Hemoglobin 33.0 PG Mean Corpuscular Hemoglobin Concent 33.5 % Red Cell Distribution Width 12.8 % Platelet Count 291 TH/MM3 Mean Platelet Volume 7.8 FL Neutrophils (%) (Auto) 91.9 % Lymphocytes (%) (Auto) 5.4 % Monocytes (%) (Auto) 1.5 % Eosinophils (%) (Auto) 0.2 % Basophils (%) (Auto) 1.0 % Neutrophils # (Auto) 10.5 TH/MM3 Lymphocytes # (Auto) 0.6 TH/MM3 Monocytes # (Auto) 0.2 TH/MM3 Eosinophils # (Auto) 0.0 TH/MM3 Basophils # (Auto) 0.1 TH/MM3 CBC Comment DIFF FINAL Differential Comment Prothrombin Time 10.3 SEC Prothromb Time International Ratio 1.0 RATIO Activated Partial Thromboplast Time 22.0 SEC Lactic Acid Level 1.6 mmol/L Blood Urea Nitrogen 11 MG/DL Creatinine 0.73 MG/DL Random Glucose 116 MG/DL Total Protein 7.2 GM/DL Albumin 3.6 GM/DL Calcium Level 8.2 MG/DL Magnesium Level 1.7 MG/DL Alkaline Phosphatase 100 U/L Aspartate Amino Transf (AST/SGOT) 14 U/L Alanine Aminotransferase (ALT/SGPT) 13 U/L Total Bilirubin 0.6 MG/DL Sodium Level 137 MEQ/L Potassium Level 3.1 MEQ/L Chloride Level 104 MEQ/L Carbon Dioxide Level 21.9 MEQ/L Lipase 65 U/L Urine Color YELLOW Urine Turbidity CLEAR Urine pH 5.0 Urine Specific [place] 1.016 Urine Protein NEG mg/dL Urine Glucose (UA) NEG mg/dL Urine Ketones NEG mg/dL Urine Occult Blood LARGE Urine Nitrite NEG Urine Bilirubin NEG Urine Leukocyte Esterase NEG Urine RBC 4-9 /hpf Urine WBC 6-8 /hpf Urine Squamous Epithelial Cells 0-5 /hpf Microscopic Urinalysis Comment CATH-CULT NOT IND Differential Diagnosis Sepsis, influenza, bronchitis, pneumonia, cellulitis Narrative Course IV access was established. Labs, imaging were performed. Patient was given IV fluids and IV antibiotics. She was given Tylenol for fever. Patient is adamant that she is not allergic to Tylenol. I am concerned regarding the patient's high fever and diffuse cellulitis of the left upper extremity that progressed within 1 day. Plan for admission for IV antibiotics. Diagnosis Primary Impression: Cellulitis Qualified Codes: L03.114 - Cellulitis of left upper limb Additional Impressions: Lymphedema Sepsis Qualified Codes: A41.9 - Sepsis, unspecified organism Admitting Information Admitting Physician Requests: Admit Brittani Howard MD Aug 29, 2017 17:07
[2017-08-29 17:28] LABS: CHLORIDE 104 MEQ/L (98-107); SODIUM (NA) 137 MEQ/L (136-145)
[2017-08-29 17:29] LABS: AUTOMATED NEUTROPHIL # 10.5 TH/MM3 (1.8-7.7); BASOPHIL # 0.1 TH/MM3 (0-0.2); EOSINOPHIL % 0.2 % (0.0-4.0); HEMATOCRIT 36.1 % (35.0-46.0); HEMOGLOBIN 12.1 GM/DL (11.6-15.3); LYMPH % 5.4 % (9.0-44.0); LYMPHOCYTE # 0.6 TH/MM3 (1.0-4.8); MEAN CELL VOLUME 98.7 FL (80.0-100.0); MEAN CORPUSCULAR HGB CONC 33.5 % (32.0-36.0); MEAN PLATELET VOLUME 7.8 FL (7.0-11.0); MONO % 1.5 % (0.0-8.0); MONOCYTE # 0.2 TH/MM3 (0-0.9); NEUT % 91.9 % (16.0-70.0); PLATELET COUNT 291 TH/MM3 (150-450); RED BLOOD COUNT 3.65 MIL/MM3 (4.00-5.30); RED CELL DISTRIBUTION WIDTH 12.8 % (11.6-17.2); WHITE BLOOD COUNT 11.4 TH/MM3 (4.0-11.0)
[2017-08-29 17:31] LABS: CALCIUM 8.2 MG/DL (8.5-10.1)
[2017-08-29 17:32] LABS: ALBUMIN 3.6 GM/DL (3.4-5.0); BICARBONATE 21.9 MEQ/L (21.0-32.0); BLOOD UREA NITROGEN 11 MG/DL (7-18); GLUCOSE,RANDOM 116 MG/DL (74-106); MAGNESIUM 1.7 MG/DL (1.5-2.5)
[2017-08-29 17:33] LABS: PROTHROMBIN TIME - PATIENT 10.3 SEC (9.8-11.6)
[2017-08-29 17:35] LABS: ALT (GPT) 13 U/L (10-53); AST (GOT) 14 U/L (15-37); CREATININE 0.73 MG/DL (0.50-1.00); GLOMERULAR FILTRATION RATE 82 ML/MIN (>89)
--- NOTE | 2017-08-29 17:35 | RADRPT ---
EXAM DATE/TIME: 08/29/2017 17:03 [place] COMPARISON: No previous studies available for comparison. INDICATIONS : Left chest pain post left partial mastectomy today MEDICAL HISTORY : Carcinoma, breast. Chronic obstructive pulmonary disease. Neck fracture SURGICAL HISTORY : Fusion, cervical. Left mastectomy. ENCOUNTER: Initial ACUITY: 1 day PAIN SCORE: 10/10 LOCATION: Left chest FINDINGS: Frontal and lateral views of the chest demonstrate a normal-sized cardiac silhouette. The lungs are u nderinflated and there is interstitial prominence bilaterally. No pleural effusion, airspace consolid ation, or pneumothorax is identified. Multiple clips overlie the left axilla. EKG lines overlie the p atient. Cervical spine hardware is present. The bones demonstrates no acute finding. CONCLUSION: No acute abnormality is identified. Iban Ryan MD on August 29, 2017 at 17:32 Board Certified Radiologist. This report was verified electronically.
[2017-08-29 17:36] LABS: TOTAL BILIRUBIN ADULT 0.6 MG/DL (0.2-1.0); TOTAL PROTEIN 7.2 GM/DL (6.4-8.2)
[2017-08-29 17:38] LABS: ALKALINE PHOSPHATASE 100 U/L (45-117)
[2017-08-29 17:55] LABS: BILIRUBIN, URINE NEG (NEG); BLOOD, URINE LARGE (NEG); GLUCOSE,URINE NEG (NEG); KETONE, URINE NEG (NEG); NITRITE,URINE NEG (NEG); URINE LEUKOCYTE ESTERASE NEG (NEG)
[2017-08-29 18:01] LABS: URINE COLOR YELLOW (YELLW/STRAW)
[2017-08-29 18:02] LABS: SQUAMOUS EPITHELIAL CELL URINE 0-5 /hpf (0-5)
[2017-08-29] MEDS ORDERED: MULTTAB67 PO (18:19)
[2017-08-29] MEDS ORDERED: VANCOMYCIN INJ 1,000 MG in SODIUM CHLOR 0.9% 250 ML INJ 250 ML IV ONE (18:30)
[2017-08-29] MEDS: RESP: ALBUTEROL 2.5 MG/IPRATROPIUM 0.5 MG NEB (SCH) NEB ×2 (18:42→19:22)
[2017-08-29] MEDS ORDERED: SODIUM CHLOR 0.9% 1000 ML INJ 1,000 ML IV SCH (18:45)
[2017-08-29] MEDS ORDERED: Vancomycin Consult Pharmacy 1 EA OTHER SCH (18:45)
[2017-08-29] MEDS: ACETAMINOPHEN/HYDROcodone 325 MG/5 MG TAB PO PRN (19:45)
[2017-08-29] MEDS ORDERED: ACETAMINOPHEN/HYDROcodone 325 MG/5 MG TAB PO ONE (22:30)
[2017-08-30] VITALS (7 sets, daily range): BP systolic 119–152; BP diastolic 71–93; PULSE 80–100; RESP 18–20; TEMP 98.8–101.1; O2SAT 94–97
[2017-08-30] MEDS: ACETAMINOPHEN/HYDROcodone 325 MG/5 MG TAB PO PRN ×3 (01:34→19:53)
[2017-08-30] MEDS ORDERED: CYCLOBENZAPRINE HCL 10 MG TAB PO ONE (03:30)
[2017-08-30 06:56] LABS: CALCIUM 7.5 MG/DL (8.5-10.1)
[2017-08-30 06:57] LABS: BICARBONATE 24.5 MEQ/L (21.0-32.0)
[2017-08-30 07:00] LABS: CREATININE 0.54 MG/DL (0.50-1.00)
[2017-08-30] MEDS: RESP: ALBUTEROL 2.5 MG/IPRATROPIUM 0.5 MG NEB (SCH) NEB ×3 (07:57→18:49)
[2017-08-30] MEDS: VANCOMYCIN 1,000 MG/NS 250 ML IV SCH ×4 (08:43→20:20)
[2017-08-30] MEDS: MULTIVITAMIN TAB PO SCH (08:44)
[2017-08-30] MEDS: SERTRALINE HCL 50 MG TAB PO SCH (08:44)
[2017-08-30] MEDS: PANTOPRAZOLE SOD 20 MG DELAYED RELEASE TAB PO SCH (08:44)
[2017-08-30] MEDS: BUDESONIDE-FORMOTEROL 80/4.5 MCG INHALER INH SCH (08:56)
--- NOTE | 2017-08-30 09:44 | HHI.HP ---
[facility] Service [facility] Non-Staff Admission Diagnosis SEPSIS, LEFT ARM CELLULITIS, BRONCHITIS Diagnoses: (1) Chronic back pain (2) Sepsis (3) Cellulitis (4) Lymphedema Chief Complaint: Fever Travel History International Travel<30 Days: No Contact w/Intl Traveler <30 Da: No Traveled to Known Affected Are: No Sepsis Criteria SIRS Criteria (2 or more): Temp > 100.9 or < 96.8, Heart rate over 90 Sepsis Criteria (SIRS+source): Infect source susp/known Criteria Outcome: Meets sepsis criteria History of Present Illness Patient examined in the presence of the nurse. The patient is a 57-year-old female with history of chronic lymphedema of the left upper extremity following treatment for breast cancer. She reports intermittent cough for the past 3 weeks. She had fever up to 103 at home. Denies neck pain or stiffness. Denies chills or night sweats. No shortness of breath or chest pain. She reports increasing pain and warmth of her left upper extremity over the past couple days. She goes to outpatient therapy for lymphedema on Sunday and Sunday. Review of Systems Constitutional: DENIES: Fever, Chills, Night Sweats Eyes: DENIES: Blurred vision, Vision loss Ears, nose, mouth, throat: DENIES: Hearing loss Respiratory: COMPLAINS OF: Cough, Sputum production, DENIES: Wheezing, Shortness of breath Cardiovascular: DENIES: Chest pain, Palpitations, Dyspnea on Exertion, Lower Extremity Edema Gastrointestinal: DENIES: Abdominal pain, Constipation, Diarrhea, Nausea, Vomiting Genitourinary: DENIES: Urinary frequency, Urinary incontinence, Urgency, Hematuria, Dysuria, Nocturia Musculoskeletal: DENIES: Joint pain, Muscle aches Integumentary: COMPLAINS OF: Rash (Left upper extremity erythema), DENIES: Pruritus Hematologic/lymphatic: DENIES: Bruising Neurologic: DENIES: Headache Past Family Social History Past Medical History History of breast cancer Horseshoe kidney COPD Anxiety Past Surgical History Surgical repair of C2 fracture Left breast partial mastectomy Hysterectomy Port placement, removal Reported Medications Multiple Vitamin 1 Tab 1 Tab PO DAILY Flexeril (Cyclobenzaprine HCl) 10 Mg Tab 10 Mg PO BID Sertraline (Sertraline HCl) 25 Mg Tab 25 Mg PO DAILY Omeprazole 20 Mg Tab 20 Mg PO DAILY Symbicort Inh (Budesonide/Formoterol Fumarate) 80-4.5 Mcg/Act Aero 1 Puff INH DAILY Ventolin Hfa 18 GM Inh (Albuterol Sulfate) 90 Mcg/Act Aer 2 Puff INH Q4-6H PRN Allergies: Coded Allergies: nitrofurantoin (Unverified Allergy, Severe, SEIZURES AND SWELLING, 08/29/17 ) acetaminophen (Unverified Allergy, Unknown, PROJECTILE VOMITING, 08/29/17) aspirin (Unverified Allergy, Unknown, PROJECTILE VOMITING, 08/29/17) oxycodone (Unverified Allergy, Unknown, PROJECTILE VOMITING, 08/29/17) Family History Cancer Social History Smokes one half pack per day, but states that she is trying to quit. Reports rare alcohol use. Admits to marijuana use. Physical Exam Vital Signs Vital Signs Date Time Temp Pulse Resp B/P (MAP) Pulse Ox O2 Delivery O2 Flow Rate FiO2 08/30/17 08:08 96 21 08/30/17 08:00 99.6 91 18 132/82 (99) 94 08/30/17 04:00 98.8 89 20 119/79 (92) 97 08/29/17 21:30 98.2 107 16 116/73 (87) 96 08/29/17 20:28 101 18 97 08/29/17 19:52 98.8 103 18 127/73 (91) 97 Room Air 08/29/17 19:20 98 21 08/29/17 18:57 99.5 08/29/17 18:41 97 21 08/29/17 18:14 102.9 109 20 128/71 (90) 97 Room Air 08/29/17 18:06 95 Room Air 08/29/17 17:00 94 Room Air 08/29/17 17:00 119 22 159/93 (115) 95 Physical Exam GENERAL: Well-nourished, well-developed female in no acute distress. HEENT: Normocephalic, atraumatic. Pupils equal, round and reactive. Extraocular movements intact. No scleral icterus. No injection or drainage. Oropharynx is clear. Mucous membranes are moist. CARDIOVASCULAR: Regular rate and rhythm without murmurs, gallops, or rubs. RESPIRATORY: Clear to auscultation. No wheezes, rales, or rhonchi. Breathing is non-labored. GASTROINTESTINAL: Abdomen soft, non-tender, nondistended. EXTREMITIES: No lower extremity edema. Mild diffuse tenderness of both lower extremities. Left upper extremity with diffuse swelling and erythema extending from the wrist to the upper arm just below the shoulder. No open wounds are noted. Left upper extremity is warm to touch. PSYCH: Alert and oriented x 3. Laboratory Laboratory Tests Test 08/29/17 17:00 08/29/17 17:40 08/30/17 06:05 White Blood Count 11.4 Red Blood Count 3.65 Hemoglobin 12.1 Hematocrit 36.1 Mean Corpuscular Volume 98.7 Mean Corpuscular Hemoglobin 33.0 Mean Corpuscular Hemoglobin Concent 33.5 Red Cell Distribution Width 12.8 Platelet Count 291 Mean Platelet Volume 7.8 Neutrophils (%) (Auto) 91.9 Lymphocytes (%) (Auto) 5.4 Monocytes (%) (Auto) 1.5 Eosinophils (%) (Auto) 0.2 Basophils (%) (Auto) 1.0 Neutrophils # (Auto) 10.5 Lymphocytes # (Auto) 0.6 Monocytes # (Auto) 0.2 Eosinophils # (Auto) 0.0 Basophils # (Auto) 0.1 CBC Comment DIFF FINAL Differential Comment Prothrombin Time 10.3 Prothromb Time International Ratio 1.0 Activated Partial Thromboplast Time 22.0 Blood Urea Nitrogen 11 10 Creatinine 0.73 0.54 Random Glucose 116 93 Total Protein 7.2 Albumin 3.6 Calcium Level 8.2 7.5 Magnesium Level 1.7 Alkaline Phosphatase 100 Aspartate Amino Transf (AST/SGOT) 14 Alanine Aminotransferase (ALT/SGPT) 13 Total Bilirubin 0.6 Sodium Level 137 137 Potassium Level 3.1 3.2 Chloride Level 104 105 Carbon Dioxide Level 21.9 24.5 Anion Gap 11 8 Estimat Glomerular Filtration Rate 82 116 Lactic Acid Level 1.6 Lipase 65 Urine Color YELLOW Urine Turbidity CLEAR Urine pH 5.0 Urine Specific [place] 1.016 Urine Protein NEG Urine Glucose (UA) NEG Urine Ketones NEG Urine Occult Blood LARGE Urine Nitrite NEG Urine Bilirubin NEG Urine Leukocyte Esterase NEG Urine RBC 4-9 Urine WBC 6-8 Urine Squamous Epithelial Cells 0-5 Microscopic Urinalysis Comment CATH-CULT NOT IND Date/Time Source Procedure Growth Status 08/29/17 17:05 Blood Peripheral Aerobic Blood Culture Pending Received 08/29/17 17:05 Blood Peripheral Anaerobic Blood Culture Pending Received 08/29/17 17:05 Nasal Washing Influenza Types A,B Antigen (SUSU) - Final NEGATIVE FOR FLU A AND B ANTIGEN.... Complete Result Diagram: 08/29/17 1700 08/30/17 0605 Imaging Last Impressions Chest X-Ray 08/29/17 1653 Signed Impressions: Service Date/Time: Tuesday, August 29, 2017 17:03 - CONCLUSION: No acute abnormality is identified. MD Karina Pereira VTE Risk Assessment [place] VTE Risk Assessment: Mod/High Risk (score >= 2) Caprini Risk Assessment Model Point Value = 1 Point Value = 2 Point Value = 3 Point Value = 5 Age 41-60 Minor surgery BMI > 25 kg/m2 Swollen legs Varicose veins or History of unexplained or recurrent spontaneous Oral contraceptives or hormone replacement Sepsis (< 1 month) Serious lung disease, including pneumonia (< 1 month) Abnormal pulmonary function Acute myocardial infarction Congestive heart failure (< 1 month) History of inflammatory bowel disease Medical patient at bed rest Age 61-74 Arthroscopic surgery Major open surgery (> 45 min) Laparoscopic surgery (> 45 min) Malignancy Confined to bed (> 72 hours) Immobilizing plaster cast Central venous access Age >= 75 History of VTE Family history of VTE Factor V Leiden Prothrombin [id number] Lupus anticoagulant Anticardiolipin antibodies Elevated serum homocysteine Heparin-induced thrombocytopenia Other congenital or acquired thrombophilia Stroke (< 1 month) Elective arthroplasty Hip, pelvis, or leg fracture Acute spinal cord injury (< 1 month) Prophylaxis Regimen Total Risk Factor Score Risk Level Prophylaxis Regimen 0-1 Low Early ambulation 2 Moderate Order ONE of the following: *Sequential Compression Device (SCD) *Heparin 5000 units SQ BID 3-4 Higher Order ONE of the following medications: *Heparin 5000 units SQ TID *Enoxaparin/Lovenox 40 mg SQ daily (WT < 150 kg, CrCl > 30 mL/min) *Enoxaparin/Lovenox 30 mg SQ daily (WT < 150 kg, CrCl > 10-29 mL/min) *Enoxaparin/Lovenox 30 mg SQ BID (WT < 150 kg, CrCl > 30 mL/min) AND/OR *Sequential Compression Device (SCD) 5 or more Highest Order ONE of the following medications: *Heparin 5000 units SQ TID (Preferred with Epidurals) *Enoxaparin/Lovenox 40 mg SQ daily (WT < 150 kg, CrCl > 30 mL/min) *Enoxaparin/Lovenox 30 mg SQ daily (WT < 150 kg, CrCl > 10-29 mL/min) *Enoxaparin/Lovenox 30 mg SQ BID (WT < 150 kg, CrCl > 30 mL/min) AND *Sequential Compression Device (SCD) Assessment and Plan Assessment and Plan 1. Sepsis: Source appears to be left upper extremity cellulitis. Continue antibiotics. Blood cultures are pending. 2. Chronic lymphedema, left upper extremity: Monitor. 3. DVT prophylaxis: Lovenox. Carlos Rojo MD Aug 30, 2017 09:44
[2017-08-30] MEDS ORDERED: POTASSIUM CHLORIDE 10 MEQ CONTROLLED RELEASE TAB PO ONE (10:00)
[2017-08-30] MEDS ORDERED: NS + KCL 20 MEQ INJ 1,000 ML IV SCH (10:00)
[2017-08-30] MEDS: ACETAMINOPHEN 500 MG CPLT PO PRN ×2 (10:22→21:47)
[2017-08-30] MEDS: CYCLOBENZAPRINE HCL 10 MG TAB PO SCH ×2 (10:32→19:52)
[2017-08-30] MEDS ORDERED: POTASSIUM CHLORIDE INJ 20 MEQ in SODIUM CHLOR 0.9% 1000 ML INJ 1,000 ML IV SCH (12:00)
[2017-08-30] MEDS ORDERED: LEVOFLOXACIN 750 MG PREMIX INJ 150 ML IV SCH (17:00)
[2017-08-30] MEDS ORDERED: ONDANSETRON HCL 4 MG/2 ML VIAL IV PUSH PRN (21:00)
[2017-08-30] MEDS ORDERED: ACETAMINOPHEN/HYDROcodone 325 MG/5 MG TAB PO ONE (21:00)
[2017-08-31] VITALS (9 sets, daily range): BP systolic 116–143; BP diastolic 61–84; PULSE 53–99; RESP 18–24; TEMP 97.1–99.2; O2SAT 95–96
[2017-08-31] MEDS ORDERED: NS + KCL 20 MEQ INJ 1,000 ML IV SCH (05:30)
[2017-08-31 06:40] LABS: AUTOMATED NEUTROPHIL # 6.9 TH/MM3 (1.8-7.7); BASOPHIL % 0.2 % (0.0-2.0); EOSINOPHIL # 0.1 TH/MM3 (0-0.4); EOSINOPHIL % 0.7 % (0.0-4.0); HEMATOCRIT 32.9 % (35.0-46.0); HEMOGLOBIN 10.8 GM/DL (11.6-15.3); LYMPH % 18.2 % (9.0-44.0); LYMPHOCYTE # 1.7 TH/MM3 (1.0-4.8); MEAN CELL VOLUME 99.5 FL (80.0-100.0); MEAN CORPUSCULAR HEMOGLOBIN 32.5 PG (27.0-34.0); MEAN CORPUSCULAR HGB CONC 32.7 % (32.0-36.0); MEAN PLATELET VOLUME 7.5 FL (7.0-11.0); MONO % 7.1 % (0.0-8.0); MONOCYTE # 0.7 TH/MM3 (0-0.9); NEUT % 73.8 % (16.0-70.0); PLATELET COUNT 228 TH/MM3 (150-450); RED BLOOD COUNT 3.31 MIL/MM3 (4.00-5.30); RED CELL DISTRIBUTION WIDTH 13.1 % (11.6-17.2); WHITE BLOOD COUNT 9.4 TH/MM3 (4.0-11.0)
[2017-08-31 06:50] LABS: BICARBONATE 25.3 MEQ/L (21.0-32.0); CALCIUM 8.2 MG/DL (8.5-10.1); MAGNESIUM 1.9 MG/DL (1.5-2.5)
[2017-08-31 06:53] LABS: CREATININE 0.5 MG/DL (0.50-1.00)
[2017-08-31] MEDS ORDERED: POTASSIUM CHLORIDE INJ 20 MEQ in SODIUM CHLOR 0.9% 1000 ML INJ 1,000 ML IV SCH (07:00)
[2017-08-31] MEDS: RESP: ALBUTEROL 2.5 MG/IPRATROPIUM 0.5 MG NEB (SCH) NEB ×2 (07:28→13:32)
[2017-08-31] MEDS ORDERED: PHARMACY ORDERED LAB ONE ×2 (07:45→19:45)
[2017-08-31] MEDS: MULTIVITAMIN TAB PO SCH (07:55)
[2017-08-31] MEDS: PANTOPRAZOLE SOD 20 MG DELAYED RELEASE TAB PO SCH (07:56)
[2017-08-31] MEDS: SERTRALINE HCL 50 MG TAB PO SCH (07:56)
[2017-08-31] MEDS: CYCLOBENZAPRINE HCL 10 MG TAB PO SCH (07:56)
[2017-08-31] MEDS: BUDESONIDE-FORMOTEROL 80/4.5 MCG INHALER INH SCH (07:57)
[2017-08-31] MEDS: VANCOMYCIN 1,000 MG/NS 250 ML IV SCH ×2 (07:58)
[2017-08-31] MEDS: ACETAMINOPHEN/HYDROcodone 325 MG/5 MG TAB PO PRN (09:16)
[2017-08-31] MEDS ORDERED: ACETAMINOPHEN/HYDROcodone 325 MG/5 MG TAB PO PRN (10:45)
--- NOTE | 2017-08-31 14:33 | HHI.PR ---
Subjective Remarks Patient seen and evaluated today in follow-up for left arm Lymphedema with cellulitis and sepsis. Yesterday evening. Leukocytosis is improved. Rate and temperature improved although there was a temperature 101.1 the patient continues to improve likely discharge home Objective Vitals Vital Signs Date Time Temp Pulse Resp B/P (MAP) Pulse Ox O2 Delivery O2 Flow Rate FiO2 08/31/17 12:00 97.6 76 24 116/61 (79) 95 08/31/17 10:16 18 08/31/17 08:00 97.1 86 24 143/78 (99) 95 08/31/17 04:00 97.5 82 20 124/81 (95) 96 08/31/17 03:51 53 08/31/17 03:49 79 08/31/17 03:48 65 08/31/17 00:00 99.2 99 20 126/84 (98) 96 08/30/17 20:00 101.1 100 20 152/93 (112) 96 08/30/17 19:10 80 08/30/17 16:00 99.9 93 18 134/76 (95) 94 I/O 08/30/17 08/30/17 08/30/17 08/31/17 08/31/17 08/31/17 07:00 15:00 23:00 07:00 15:00 23:00 Intake Total 582 ml 725 ml 250 ml 3850 ml 840 ml Output Total 825 ml Balance 582 ml -100 ml 250 ml 3850 ml 840 ml Intake Oral 725 ml 2860 ml 840 ml IV Total 582 ml 250 ml 990 ml Output Urine Total 825 ml # Voids 12 3 # Bowel Movements 0 0 Result Diagram: 08/31/17 0610 08/31/17 0610 Imaging Last Impressions Chest X-Ray 08/29/17 8803 Signed Impressions: Service Date/Time: Tuesday, August 29, 2017 17:03 - CONCLUSION: No acute abnormality is identified. Iban Ryan MD Objective Remarks GENERAL: This is a well-nourished, well-developed patient, in no apparent distress. CARDIOVASCULAR: Regular rate and rhythm without murmurs, gallops, or rubs. RESPIRATORY: Clear to auscultation. Breath sounds equal bilaterally. No wheezes , rales, or rhonchi. GASTROINTESTINAL: Abdomen soft, non-tender, nondistended. Normal active bowel sounds MUSCULOSKELETAL: Left arm erythema from the wrist to the shoulder, some edema and calor,. Other 3 but it is improved extremities without clubbing, cyanosis, or edema. NEURO: Alert & Oriented x4 to person, place, time, situation. Moves all ext x4 A/P Problem List: (1) Sepsis ICD Code: A41.9 - Sepsis, unspecified organism Status: Acute Plan: Secondary to lymphedema with cellulitis, blood cultures are negative at this time Left arm appears improved Continue levofloxacin and vancomycin for now Follow-up temperature (2) Cellulitis ICD Code: L03.90 - Cellulitis, unspecified Status: Acute Plan: Left arm appears improved, decreased erythema and decreased edema, it is still high there is still some Calor (3) Lymphedema ICD Code: I89.0 - Lymphedema, not elsewhere classified Status: Acute Plan: Status post lymph node resection due to breast cancer Currently in lymphedema therapy at [place] Discharge Planning Discharge in a.m. if continues to improve Nadine Spain MD Aug 31, 2017 14:33
[2017-08-31] MEDS ORDERED: LEVOFLOXACIN 750 MG TAB PO SCH (15:00)
--- NOTE | 2017-08-31 17:27 | HHI.DCPOC ---
Discharge Care Plan Diagnosis: (1) Lymphedema (2) Cellulitis Goals to Promote Your Health * To prevent worsening of your condition and complications * To maintain your health at the optimal level Directions to Meet Your Goals Take your medications as prescribed Follow your dietary instruction Follow activity as directed Keep your appointments as scheduled Take your immunizations and boosters as scheduled If your symptoms worsen call your PCP, if no PCP go to Urgent Care Center or Emergency Room Smoking is Dangerous to Your Health. Avoid second hand smoke Call the 24-hour hour crisis hotline for domestic abuse at Nadine Spain MD Aug 31, 2017 17:27
[2017-08-31] MEDS ORDERED: LEVA750T9 PO (17:29)
== END 2017-08-31 15:45 | disposition home or self-care (01) | DRG 872 ==
LOC: PHED 16:24 → PHEDA 18:31 → PH3A 20:25
PROVIDERS: ADMIT Hospitalist; ATTEND Hospitalist
DX: A41.9 Sepsis, unspecified organism (principal); J44.9 Chronic obstructive pulmonary disease, unspecified; L03.114 Cellulitis of left upper limb; M19.90 Unspecified osteoarthritis, unspecified site; F41.9 Anxiety disorder, unspecified; F17.210 Nicotine dependence, cigarettes, uncomplicated; G89.29 Other chronic pain; I97.2 Postmastectomy lymphedema syndrome; M54.9 Dorsalgia, unspecified; Z85.3 Personal history of malignant neoplasm of breast; Q63.1 Lobulated, fused and horseshoe kidney
CPT/HCPCS: 71046; 80048; 80053; 80202; 81001; 83605; 83690; 83735; 85025; 85610; 85730; 87040; 87804; 94640; 94664; 96365; 96366; J1956; J2405; J3370; J3480; J7030; J7050

== ENCOUNTER 2017-12-11 08:23 | Emergency (ER) | payer OTHER, MEDICAID ==
[~2017-12-11] VITALS: Ht 175.3 cm; Wt 59.6 kg
[~2017-12-11 08:23] MED LIST changes: -CEPH-460 PO; -DOXY1CAP91 PO; -HYDR-3516 PO; +LEVA750T9 PO; +MULTTAB67 PO; -VITA150T PO; -VITA2000 PO; -ZOFR4TAB3 SL
[2017-12-11 08:28] VITALS: BP 165/91; PULSE 85; RESP 16; TEMP 98.2; O2SAT 98
[2017-12-11] MEDS ORDERED: TYLE325T PO (08:41)
[2017-12-11] MEDS ORDERED: IBUP1TAB7 PO (08:41)
[2017-12-11] MEDS ORDERED: HYDROmorphone HCL PF 2 MG/ML VIAL IV PUSH ONE (09:00)
[2017-12-11] MEDS ORDERED: ONDANSETRON HCL 4 MG/2 ML VIAL IV PUSH ONE (09:00)
--- NOTE | 2017-12-11 09:10 | PD ---
HPI Chief Complaint: Musculoskeletal Complaint Time Seen by Provider: 08:47 Travel History International Travel<30 days: No Contact w/Intl Traveler<30days: No Traveled to known affect area: No History of Present Illness HPI This 57-year-old female says she been having pain in the back of her chest for about 4 days. Left posterior chest and that was in the right posterior chest. She feels like she cannot take a deep breath. He has a history of lymphedema of the left arm. She had breast cancer in the past. She had surgery followed by chemo and radiation 8 years ago he is also had a fracture at C2 and has some left-sided weakness and neuropathy. She has no history of DVT but she says that there is a family history of thrombosis PFSH Past Medical History Arthritis: Yes Asthma: Yes Blood Disorders: No Anxiety: Yes Cancer: Yes (LEFT BREAST) Cardiovascular Problems: No Chemotherapy: Yes (IN PAST) COPD: Yes Diminished Hearing: No Endocrine: No Gastrointestinal Disorders: Yes (VOMITING FOR 1 YEAR DUE TO CHEMO) GERD: Yes Genitourinary: Yes ("HORSESHOE KIDNEYS" (HOOKED TOGETHER, DEFORMED)) Headaches: Yes Immune Disorder: Yes Implanted Vascular Access Dvce: Yes Kidney Stones: Yes Musculoskeletal: Yes Neurologic: Yes Psychiatric: Yes Respiratory: Yes (COPD) Immunizations Current: No Radiation Therapy: Yes Ulcer: Yes Influenza Vaccination: No ?: Not Menopausal: Yes Past Surgical History Body Medical Devices: METAL IN NECK, BROKE C2 Gynecologic Surgery: Yes (L BREAST MASTECTOMY PARTIAL, HYSTERECTOMY) Hysterectomy: Yes Mastectomy: Yes (L) Neurologic Surgery: Yes (C2 NECK SURGERY) Other Surgery: Yes (PORT REMOVED 2011) Social History Alcohol Use: Yes (RARE) Tobacco Use: Yes (1/2 PPD) Substance Use: Yes (deysi for cancer) Allergies-Medications (Allergen,Severity, Reaction): Coded Allergies: nitrofurantoin (Unverified Allergy, Severe, SEIZURES AND SWELLING, 12/11/17 ) acetaminophen (Verified Adverse Reaction, Unknown, Vomiting, 12/11/17) aspirin (Verified Adverse Reaction, Unknown, Vomiting, 12/11/17) oxycodone (Verified Adverse Reaction, Unknown, Vomiting, 12/11/17) Reported Meds & Prescriptions Reported Meds & Active Scripts Active Reported Tylenol (Acetaminophen) 325 Mg Tab 325 Mg PO DIRECTED Ibuprofen 800 Mg Tab 800 Mg PO TID Multiple Vitamin 1 Tab 1 Tab PO DAILY Flexeril (Cyclobenzaprine HCl) 10 Mg Tab 10 Mg PO BID Sertraline (Sertraline HCl) 25 Mg Tab 25 Mg PO DAILY Omeprazole 20 Mg Tab 20 Mg PO DAILY Symbicort Inh (Budesonide/Formoterol Fumarate) 80-4.5 Mcg/Act Aero 1 Puff INH DAILY Ventolin Hfa 18 GM Inh (Albuterol Sulfate) 90 Mcg/Act Aer 2 Puff INH Q4-6H PRN Review of Systems General / Constitutional: No: Fever Eyes: No: Diploplia, Blurred Vision HENT: No: Headaches, Vertigo Cardiovascular: No: Chest Pain or Discomfort, Palpitations, Dyspnea on exertion Respiratory: Positive: Shortness of Breath, Pleuritic Pain, No: Cough Gastrointestinal: No: Nausea, Vomiting Genitourinary: No: Urgency, Frequency Musculoskeletal: No: Myalgias, Arthralgias Skin: No Rash Physical Exam Narrative GENERAL well-developed female SKIN: Focused skin assessment warm/dry. HEAD: Atraumatic. Normocephalic. EYES: Pupils equal and round. No scleral icterus. No injection or drainage. ENT: No nasal bleeding or discharge. Mucous membranes pink and moist. NECK: Trachea midline. No JVD. CARDIOVASCULAR: Regular rate and rhythm. No murmur appreciated. RESPIRATORY: No accessory muscle use. Clear to auscultation. Breath sounds equal bilaterally. GASTROINTESTINAL: Abdomen soft, non-tender, nondistended. Hepatic and splenic margins not palpable. MUSCULOSKELETAL: No obvious deformities. No clubbing. No cyanosis. No edema. There is lymphedema of the left arm NEUROLOGICAL: Awake and alert. No obvious cranial nerve deficits. Motor grossly within normal limits. Normal speech. PSYCHIATRIC: Appropriate mood and affect; insight and judgment normal. Data Data Last Documented VS Vital Signs Date Time Temp Pulse Resp B/P (MAP) Pulse Ox O2 Delivery O2 Flow Rate FiO2 12/11/17 10:11 86 18 144/86 (105) 97 Room Air 12/11/17 08:28 98.2 Orders Orders Complete Blood Count With Diff (12/11/17 08:57) Comprehensive Metabolic Panel (12/11/17 08:57) Prothrombin Time / Inr (Pt) (12/11/17 08:57) Act Partial Throm Time (Ptt) (12/11/17 08:57) Urinalysis - C+S If Indicated (12/11/17 08:57) Chest, Single Ap (12/11/17 08:57) Ondansetron Inj (Zofran Inj) (12/11/17 09:00) Hydromorphone Pf Inj (Dilaudid Pf Inj) (12/11/17 09:00) Ct Pulmonary Angiogram (12/11/17 09:59) Iohexol 350 Inj (Omnipaque 350 Inj) (12/11/17 10:34) Labs Laboratory Tests Test 12/11/17 08:45 12/11/17 09:00 Urine Collection Type VOIDED Urine Color YELLOW Urine Turbidity CLEAR Urine pH 5.5 Urine Specific [place] 1.010 Urine Protein NEG mg/dL Urine Glucose (UA) NEG mg/dL Urine Ketones NEG mg/dL Urine Occult Blood MOD Urine Nitrite NEG Urine Bilirubin NEG Urine Urobilinogen 0.2 MG/DL Urine Leukocyte Esterase NEG Urine RBC 0-3 /hpf Urine WBC 0-2 /hpf Urine Squamous Epithelial Cells 0-2 /hpf Microscopic Urinalysis Comment CULT NOT INDICATED White Blood Count 6.5 TH/MM3 Red Blood Count 4.09 MIL/MM3 Hemoglobin 14.2 GM/DL Hematocrit 41.5 % Mean Corpuscular Volume 101.2 FL Mean Corpuscular Hemoglobin 34.8 PG Mean Corpuscular Hemoglobin Concent 34.3 % Red Cell Distribution Width 13.6 % Platelet Count 353 TH/MM3 Mean Platelet Volume 7.7 FL Neutrophils (%) (Auto) 62.1 % Lymphocytes (%) (Auto) 28.9 % Monocytes (%) (Auto) 6.0 % Eosinophils (%) (Auto) 1.7 % Basophils (%) (Auto) 1.3 % Neutrophils # (Auto) 4.0 TH/MM3 Lymphocytes # (Auto) 1.9 TH/MM3 Monocytes # (Auto) 0.4 TH/MM3 Eosinophils # (Auto) 0.1 TH/MM3 Basophils # (Auto) 0.1 TH/MM3 CBC Comment DIFF FINAL Differential Comment Prothrombin Time 10.0 SEC Prothromb Time International Ratio 1.0 RATIO Activated Partial Thromboplast Time 22.7 SEC Blood Urea Nitrogen 10 MG/DL Creatinine 0.68 MG/DL Random Glucose 104 MG/DL Total Protein 7.4 GM/DL Albumin 3.9 GM/DL Calcium Level 8.7 MG/DL Alkaline Phosphatase 107 U/L Aspartate Amino Transf (AST/SGOT) 18 U/L Alanine Aminotransferase (ALT/SGPT) 17 U/L Total Bilirubin 0.5 MG/DL Sodium Level 138 MEQ/L Potassium Level 4.0 MEQ/L Chloride Level 106 MEQ/L Carbon Dioxide Level 24.3 MEQ/L Anion Gap 8 MEQ/L Estimat Glomerular Filtration Rate 89 ML/MIN MDM Medical Decision Making Medical Screen Exam Complete: Yes Emergency Medical Condition: Yes Medical Record Reviewed: Yes Differential Diagnosis Differential includes musculoskeletal pain, pleurisy, pulmonary embolus Narrative Course Patient has history of breast cancer, lymphedema and family history of thrombosis so I felt pulmonary embolus had to be ruled out. A CTA is negative for PE. It does show some emphysematous changes. Patient has been uncomfortable with the pain and not able to sleep. I will prescribe some [place] for her to take in addition to her ibuprofen Diagnosis Primary Impression: Pleurisy Scripts Hydrocodone-Acetaminophen ([place]) 10-325 Mg Tab 1 TAB PO Q4H Y for PAIN, #12 TAB 0 Refills Prov: Mario Koehler MD 12/11/17 Disposition: DISCHARGE HOME Condition: Stable Mario Koehler MD Dec 11, 2017 09:10
[2017-12-11 09:11] LABS: BASOPHIL # 0.1 TH/MM3 (0-0.2); BASOPHIL % 1.3 % (0.0-2.0); EOSINOPHIL # 0.1 TH/MM3 (0-0.4); EOSINOPHIL % 1.7 % (0.0-4.0); HEMATOCRIT 41.5 % (35.0-46.0); HEMOGLOBIN 14.2 GM/DL (11.6-15.3); LYMPH % 28.9 % (9.0-44.0); LYMPHOCYTE # 1.9 TH/MM3 (1.0-4.8); MEAN CELL VOLUME 101.2 FL (80.0-100.0); MEAN CORPUSCULAR HEMOGLOBIN 34.8 PG (27.0-34.0); MEAN CORPUSCULAR HGB CONC 34.3 % (32.0-36.0); MEAN PLATELET VOLUME 7.7 FL (7.0-11.0); MONOCYTE # 0.4 TH/MM3 (0-0.9); NEUT % 62.1 % (16.0-70.0); PLATELET COUNT 353 TH/MM3 (150-450); RED BLOOD COUNT 4.09 MIL/MM3 (4.00-5.30); RED CELL DISTRIBUTION WIDTH 13.6 % (11.6-17.2); WHITE BLOOD COUNT 6.5 TH/MM3 (4.0-11.0)
[2017-12-11 09:14] LABS: BILIRUBIN, URINE NEG (NEG); BLOOD, URINE MOD (NEG); GLUCOSE,URINE NEG (NEG); KETONE, URINE NEG (NEG); NITRITE,URINE NEG (NEG); PH, URINE 5.5 (5.0-8.5); URINE COLOR YELLOW (YELLW/STRAW); URINE LEUKOCYTE ESTERASE NEG (NEG)
[2017-12-11 09:21] LABS: WBC, URINE 0-2 /hpf (0-5)
[2017-12-11 09:22] LABS: RBC, URINE 0-3 /hpf (0-3); SQUAMOUS EPITHELIAL CELL URINE 0-2 /hpf (0-5)
[2017-12-11 09:42] LABS: CHLORIDE 106 MEQ/L (98-107); SODIUM (NA) 138 MEQ/L (136-145)
--- NOTE | 2017-12-11 09:44 | RADRPT ---
EXAM DATE: 12/11/2017 9:22 AM EDT AGE/SEX: 57 years / Female INDICATIONS: Posterior chest pain. CLINICAL DATA: This is the patient's initial encounter. Patient reports that signs and symptoms have been present for 4 - 6 days and indicates a pain score of 8/10. MEDICAL/SURGICAL HISTORY: Chronic obstructive pulmonary disease. Gastroesophageal reflux disea se. Ulcers. Breast CA. Radiation/Chemotherapy. Horseshoe kidney. Renal calculi/ Asthma. Arthritis, Fusion, cervical. Mastectomy, left. Hysterectomy. Infusaport placement & removal. COMPARISON: No prior exams available for comparison. FINDINGS: Lungs are hyperinflated but otherwise clear. There is no evidence of acute airspace disease, mass den sities or effusions. Heart and mediastinal structures appear normal. Postsurgical changes are identified in the uncal spine following fusion and in the left axillary rufina on CONCLUSION: COPD No evidence of acute process. Postsurgical changes as described above. Electronically signed by: Juan Lopes MD 12/11/2017 9:43 AM EDT
[2017-12-11 09:45] LABS: CALCIUM 8.7 MG/DL (8.5-10.1)
[2017-12-11 09:46] LABS: ALBUMIN 3.9 GM/DL (3.4-5.0); BICARBONATE 24.3 MEQ/L (21.0-32.0); BLOOD UREA NITROGEN 10 MG/DL (7-18); GLUCOSE,RANDOM 104 MG/DL (74-106)
[2017-12-11 09:49] LABS: AST (GOT) 18 U/L (15-37); CREATININE 0.68 MG/DL (0.50-1.00); GLOMERULAR FILTRATION RATE 89 ML/MIN (>89)
[2017-12-11 09:50] LABS: TOTAL BILIRUBIN ADULT 0.5 MG/DL (0.2-1.0)
[2017-12-11 09:51] LABS: TOTAL PROTEIN 7.4 GM/DL (6.4-8.2)
[2017-12-11 09:52] LABS: ALKALINE PHOSPHATASE 107 U/L (45-117)
[2017-12-11 09:58] LABS: ALT (GPT) 17 U/L (10-53)
[2017-12-11 10:11] VITALS: BP 144/86; PULSE 86; RESP 18; O2SAT 97
[2017-12-11] MEDS ORDERED: IOHEXOL 350 MG/ML 10 ML VIAL (for RAD DIAG) IVCONTRAST ONE (10:34)
--- NOTE | 2017-12-11 10:39 | RADRPT ---
EXAM DATE: 12/11/2017 10:34 AM EDT AGE/SEX: 57 years / Female INDICATIONS: Right posterior chest pain x 4 days. Difficulty breathing. CLINICAL DATA: This is the patient's initial encounter. Patient reports that signs and symptoms have been present for 4 - 6 days and indicates a pain score of 7/10. MEDICAL/SURGICAL HISTORY: Carcinoma, breast. Chronic obstructive pulmonary disease. Gastroesophag eal reflux disease. Asthma. Ulcer. C2 fracture. Renal calculi. Hysterectomy. Mastectomy, left. RADIATION DOSE: 7.98 CTDI (mGy) COMPARISON: No prior exams available for comparison. TECHNIQUE: Volumetric scanning was performed using a multi-row detector CT scanner during bolus infu theresa of 75 ml Omnipaque 350 (iohexol) nonionic water-soluble contrast as a single exam dose. The henrietta a was post processed with a variety of visualization algorithms including full volume maximum intensi ty projection and sliding thin slab reformation. Using automated exposure control and adjustment of the mA and/or kV according to patient size, radiation dose was kept as low as reasonably achievable t o obtain optimal diagnostic quality images. FINDINGS: Pulmonary Arteries: No filling defects are seen in the pulmonary arteries out to the subsegmental ve ssels. The left and right pulmonary arteries are normal in diameter. Lung: Chronic lung and airway changes are noted. There is pleural parenchymal scarring in the apices especially on the left. Scattered emphysematous bulla are identified in both upper lobes. There is n o evidence of suspicious mass densities or consolidating airspace disease. Effusion: None. Mediastinum: No evidence of mediastinal or hilar adenopathy. Other: The axilla is unremarkable. CONCLUSION: 1. No evidence of pulmonary embolism. 2. Chronic lung disease with biapical pleural parenchymal scarring and scattered emphysematous mathias es. 3. No evidence of consolidating airspace disease or effusions. Electronically signed by: Juan Lopes MD 12/11/2017 10:38 AM EDT
[2017-12-11] MEDS ORDERED: HYDR-3366 PO (10:57)
== END 2017-12-11 11:12 | disposition home or self-care (01) ==
LOC: PHED 08:23
DX: R09.1 Pleurisy (principal); Z85.3 Personal history of malignant neoplasm of breast; M19.90 Unspecified osteoarthritis, unspecified site; G62.9 Polyneuropathy, unspecified; F41.9 Anxiety disorder, unspecified; J44.9 Chronic obstructive pulmonary disease, unspecified; K21.9 Gastro-esophageal reflux disease without esophagitis; Q63.1 Lobulated, fused and horseshoe kidney; F17.200 Nicotine dependence, unspecified, uncomplicated; Z86.718 Personal history of other venous thrombosis and embolism; Z87.442 Personal history of urinary calculi
CPT/HCPCS: 71045; 71275; 80053; 81001; 85025; 85610; 85730; 96374; 96375; 99285; J1170; J2405; Q9967

== ENCOUNTER 2018-04-10 17:07 | Inpatient (IN) ==
[2018-04-10] MEDS ORDERED: Ketorolac Inj 30 MG/ML (IVP) Vial IV.PUSH STA (17:29)
[2018-04-10] MEDS ORDERED: Sod Chloride 0.9% Inj 1,000 ML IV.SIG ONE ×2 (17:33→19:07)
--- NOTE | 2018-04-10 17:51 | XR ---
EXAM DATE: 04/10/2018 5:31 PM EDT AGE/SEX: 58 years / Female INDICATIONS: Back and left side pain. CLINICAL DATA: This is the patient's initial encounter. Patient reports that signs and symptoms have been present for 1 day and indicates a pain score of 0/10. MEDICAL/SURGICAL HISTORY: Chronic obstructive pulmonary disease. Gastroesophageal reflux disea se. Ulcers. Breast CA. Radiation/Chemotherapy. Horseshoe kidney. Renal calculi/ Asthma. Fusion, cerv ical. Mastectomy, left. Hysterectomy. Infusaport placement & removal. COMPARISON: No prior exams available for comparison. FINDINGS: A single AP view of the chest demonstrates the lungs to be symmetrically aerated without evidence of mass, infiltrate or effusion. The cardiomediastinal contours are unremarkable. Osseous structures a re intact. There are multiple surgical clips and bonita in the left axilla. The patient is status p ost lower cervical fusion. Study is mildly overpenetrated. CONCLUSION: No acute cardiopulmonary disease. Electronically signed by: Scot Flores MD 04/10/2018 5:50 PM EDT
--- NOTE | 2018-04-10 18:08 | ED ---
HPI General Chief complaint: Extremity Injury, Upper Stated complaint: Lft Side Pain/Rash On Arm/Face Pain Hx Shingles Time Seen by Provider: 04/10/18 17:21 History of Present Illness HPI narrative: 58 female history of breast cancer s/p partial mastectomy here for evaluation of left arm swelling and redness since yesterday. She has chronic lymphedema in the left arm, yesterday she started noticing redness and warmness of her left arm, this morning she noticed fever, T-max 101 that went down with Tylenol, she was admitted multiple times here for sepsis from a left upper arm cellulitis. She has no chest pain or shortness of breath, she has no cough, no abdominal pain or any other complaints. She also noticed a rash on left side of her chest she thought it was shingles then she started taking Valtrex that she had at home. Related Data Home Medications Medication Instructions Recorded Confirmed albuterol sulfate 2 puff INHALATION Q4-6H PRN 04/10/18 04/10/18 budesonide-formoterol [Symbicort] 2 puff INHALATION BID 04/10/18 04/10/18 cyclobenzaprine 10 mg PO TID PRN 04/10/18 04/10/18 valacyclovir [Valtrex] 1,000 mg PO BID 04/10/18 04/10/18 Allergies Allergy/AdvReac Type Severity Reaction Status Date / Time nitrofurantoin Allergy Severe SEIZURES Verified 04/10/18 17:15 AND SWELLING aspirin AdvReac Unknown Vomiting Verified 04/10/18 17:15 oxycodone AdvReac Unknown Vomiting Verified 04/10/18 17:15 Review of Systems ROS: all other systems reviewed are negative [facility] Medical History Medical History Anxiety (Acute) Back pain (Acute) COPD (chronic obstructive pulmonary disease) (Acute) GERD (gastroesophageal reflux disease) (Acute) History of hysterectomy (Acute) Kidney stones (Acute) Lymphedema of arm (Acute) Neck pain (Acute) Shingles (Acute) Ulcer (Acute) Surgical History Surgical History History of back surgery (Acute) History of mastectomy (Acute) History of neck surgery (Acute) Social History Social History Substance History: Past History Second Hand Smoke Exposure: No Smoking Status: Former smoker Tobacco Type: Cigarettes How Often Do You Have a Drink Containing Alcohol: Never Recent Travel in [facility] within the Last 8 Weeks: No Recent Out of Country Travel within the Last 8 Weeks: No Substance Abuse Detail Marijuana: Substance Use Status: Sustained Remission Immunization History Tetanus Immunization: >5 Years Exam Narrative Exam Narrative: GENERAL: Alert oriented x3 no acute distress SKIN: Focused skin assessment warm/dry. HEAD: Atraumatic. Normocephalic. EYES: Pupils equal and round. No scleral icterus. No injection or drainage. ENT: No nasal bleeding or discharge. Mucous membranes pink and moist. NECK: Trachea midline. No JVD. CARDIOVASCULAR: Regular rate and rhythm. No murmur appreciated. RESPIRATORY: No accessory muscle use. Clear to auscultation. Breath sounds equal bilaterally. GASTROINTESTINAL: Abdomen soft, non-tender, nondistended. Hepatic and splenic margins not palpable. MUSCULOSKELETAL: Left arm nonpitting edema extending all the way to the shoulder, warm to touch, erythema, pulses intact, no obvious deformities. No clubbing. No cyanosis. No edema. NEUROLOGICAL: Awake and alert. No obvious cranial nerve deficits. Motor grossly within normal limits. Normal speech. PSYCHIATRIC: Appropriate mood and affect; insight and judgment normal. Course Initial Documented Vital Signs Temperature 98.8 F 04/10/18 17:12 Pulse Rate 115 H 04/10/18 17:12 Respiratory Rate 18 04/10/18 17:12 Blood Pressure 105/84 04/10/18 17:12 Pulse Oximetry 96 04/10/18 17:12 Last Documented Vital Signs Temperature 98.1 F 04/13/18 08:00 Pulse Rate 69 04/13/18 08:00 Respiratory Rate 15 04/13/18 08:00 Blood Pressure 116/74 04/13/18 08:00 Pulse Oximetry 97 04/13/18 08:00 Medical Decision Making [facility] Narrative Medical decision making narrative: 58 female here for left arm swelling and redness and fever since this morning, vitals here in the ER are concerning for hypotension of 105/84 pulse of 115, elevated lactic acid, leukocytosis of 21,000 , she fits sepsis criteria, blood cultures drawn, initial resuscitation with 2 L IV fluid bolus, empiric antibiotic coverage with Vanco and Zosyn, blood pressure is stable without need for pressors, I believe the source of sepsis is the left arm cellulitis, will be admitted for further management. Medical Screen Exam Complete: Yes Emergency Medical Condition: Yes Lab Data Result diagrams: 04/13/18 06:27 04/13/18 06:27 Lab Results 04/10/18 04/10/18 04/10/18 Range/Units 18:10 18:10 18:37 CBC w Diff Auto diff final WBC 21.2 H (4.0-11.0) th/mm3 RBC 3.80 L (4.00-5.30) mil/mm3 Hgb 13.1 (11.6-15.3) gm/dL Hct 37.6 (35.0-46.0) % MCV 98.9 (80.0-100.0) fL MCH 34.5 H (27.0-34.0) pg MCHC 34.9 (32.0-36.0) % RDW 13.4 (11.6-17.2) % Plt Count 363 (150-450) th/mm3 MPV 8.1 (7.0-11.0) fL Neut % (Auto) 91.4 H (16.0-70.0) % Lymph % (Auto) 3.5 L (9.0-44.0) % Dewitt % (Auto) 4.8 (0.0-8.0) % Eos % (Auto) 0.0 (0.0-4.0) % Baso % (Auto) 0.3 (0.0-2.0) % Neut # (Auto) 19.4 H (1.8-7.7) th/mm3 Lymph # (Auto) 0.7 L (1.0-4.8) th/mm3 Dewitt # (Auto) 1.0 H (0.0-0.9) th/mm3 Eos # (Auto) 0.0 (0.0-0.4) th/mm3 Baso # (Auto) 0.1 (0.0-0.2) th/mm3 WBC Differential . Differential Comment . PT (9.8-11.6) sec INR Ratio APTT (24.3-30.1) sec Sodium 138 (136-145) meq/L Potassium 3.4 L (3.5-5.1) meq/L Chloride 104 (98-107) meq/L Carbon Dioxide 22.3 (21.0-32.0) meq/L Anion Gap 12 (5-15) meq/L BUN 11 (7-18) mg/dL Creatinine 0.79 (0.50-1.00) mg/dL Estimated GFR 75 L (>89) mL/min Random Glucose 102 (74-106) mg/dL Lactic Acid 2.1 H (0.4-2.0) mmol/L Calcium 8.5 (8.5-10.1) mg/dL Total Bilirubin 1.1 H (0.2-1.0) mg/dL AST 31 (15-37) U/L ALT 19 (10-53) U/L Alkaline Phosphatase 87 (45-117) U/L Total Protein 7.2 (6.4-8.2) g/dL Albumin 3.6 (3.4-5.0) g/dL Urine Color (Yellw/Straw) Urine Clarity (Clear) Urine pH (5.0-8.5) Ur Specific [place] (1.002-1.035) Urine Protein (Neg-Trace) mg/dL Urine Glucose (UA) (Negative) mg/dL Urine Ketones (Negative) mg/dL Urine Occult Blood (Negative) Urine Nitrate (Negative) Urine Bilirubin (Negative) Urine Urobilinogen (Less than 2) mg/dL Ur Leukocyte Esterase (Negative) Urine RBC (0-3) /hpf Urine WBC (0-5) /hpf Ur Squamous Epith Cells (0-5) /hpf Micro UA Comment Ur Microscopic Review Urine Culture Comments Vancomycin Trough (5.0-10.0) mcg/mL Urine Opiates Screen (Neg) Ur Barbiturates Screen (Neg) Ur Amphetamines Screen (Neg) U Benzodiazepines Scrn (Neg) Urine Cocaine Screen (Neg) U Cannabinoids Screen (Neg) 04/10/18 04/10/18 04/10/18 Range/Units 18:45 18:45 19:07 CBC w Diff WBC (4.0-11.0) th/mm3 RBC (4.00-5.30) mil/mm3 Hgb (11.6-15.3) gm/dL Hct (35.0-46.0) % MCV (80.0-100.0) fL MCH (27.0-34.0) pg MCHC (32.0-36.0) % RDW (11.6-17.2) % Plt Count (150-450) th/mm3 MPV (7.0-11.0) fL Neut % (Auto) (16.0-70.0) % Lymph % (Auto) (9.0-44.0) % Dewitt % (Auto) (0.0-8.0) % Eos % (Auto) (0.0-4.0) % Baso % (Auto) (0.0-2.0) % Neut # (Auto) (1.8-7.7) th/mm3 Lymph # (Auto) (1.0-4.8) th/mm3 Dewitt # (Auto) (0.0-0.9) th/mm3 Eos # (Auto) (0.0-0.4) th/mm3 Baso # (Auto) (0.0-0.2) th/mm3 WBC Differential Differential Comment PT 10.8 (9.8-11.6) sec INR 1.1 Ratio APTT 24.3 (24.3-30.1) sec Sodium (136-145) meq/L Potassium (3.5-5.1) meq/L Chloride (98-107) meq/L Carbon Dioxide (21.0-32.0) meq/L Anion Gap (5-15) meq/L BUN (7-18) mg/dL Creatinine (0.50-1.00) mg/dL Estimated GFR (>89) mL/min Random Glucose (74-106) mg/dL Lactic Acid (0.4-2.0) mmol/L Calcium (8.5-10.1) mg/dL Total Bilirubin (0.2-1.0) mg/dL AST (15-37) U/L ALT (10-53) U/L Alkaline Phosphatase (45-117) U/L Total Protein (6.4-8.2) g/dL Albumin (3.4-5.0) g/dL Urine Color Yellow (Yellw/Straw) Urine Clarity Clear (Clear) Urine pH 6.0 (5.0-8.5) Ur Specific [place] Less/equal 1.005 (1.002-1.035) Urine Protein Negative (Neg-Trace) mg/dL Urine Glucose (UA) Negative (Negative) mg/dL Urine Ketones Negative (Negative) mg/dL Urine Occult Blood Moderate H (Negative) Urine Nitrate Negative (Negative) Urine Bilirubin Negative (Negative) Urine Urobilinogen 0.2 (Less than 2) mg/dL Ur Leukocyte Esterase Negative (Negative) Urine RBC 0-3 (0-3) /hpf Urine WBC 0-5 (0-5) /hpf Ur Squamous Epith Cells 0-5 (0-5) /hpf Micro UA Comment Culture not ind Ur Microscopic Review Microscopic reviewed Urine Culture Comments Culture not ind Vancomycin Trough (5.0-10.0) mcg/mL Urine Opiates Screen Neg (Neg) Ur Barbiturates Screen Neg (Neg) Ur Amphetamines Screen Neg (Neg) U Benzodiazepines Scrn Neg (Neg) Urine Cocaine Screen Neg (Neg) U Cannabinoids Screen Pos H (Neg) 04/11/18 04/11/18 04/12/18 Range/Units 06:00 06:00 07:22 CBC w Diff Auto diff final WBC 12.4 H (4.0-11.0) th/mm3 RBC 3.26 L (4.00-5.30) mil/mm3 Hgb 11.1 L D (11.6-15.3) gm/dL Hct 33.0 L (35.0-46.0) % MCV 101.1 H (80.0-100.0) fL MCH 34.0 (27.0-34.0) pg MCHC 33.6 (32.0-36.0) % RDW 12.9 (11.6-17.2) % Plt Count 275 (150-450) th/mm3 MPV 7.6 (7.0-11.0) fL Neut % (Auto) 88.0 H (16.0-70.0) % Lymph % (Auto) 8.3 L (9.0-44.0) % Dewitt % (Auto) 3.4 (0.0-8.0) % Eos % (Auto) 0.1 (0.0-4.0) % Baso % (Auto) 0.2 (0.0-2.0) % Neut # (Auto) 11.0 H (1.8-7.7) th/mm3 Lymph # (Auto) 1.0 (1.0-4.8) th/mm3 Dewitt # (Auto) 0.4 (0.0-0.9) th/mm3 Eos # (Auto) 0.0 (0.0-0.4) th/mm3 Baso # (Auto) 0.0 (0.0-0.2) th/mm3 WBC Differential . Differential Comment . PT (9.8-11.6) sec INR Ratio APTT (24.3-30.1) sec Sodium 137 (136-145) meq/L Potassium 3.3 L (3.5-5.1) meq/L Chloride 104 (98-107) meq/L Carbon Dioxide 22.8 (21.0-32.0) meq/L Anion Gap 10 (5-15) meq/L BUN 9 (7-18) mg/dL Creatinine 0.61 (0.50-1.00) mg/dL Estimated GFR Greater than 89 (>89) mL/min Random Glucose 101 (74-106) mg/dL Lactic Acid (0.4-2.0) mmol/L Calcium 7.9 L (8.5-10.1) mg/dL Total Bilirubin (0.2-1.0) mg/dL AST (15-37) U/L ALT (10-53) U/L Alkaline Phosphatase (45-117) U/L Total Protein (6.4-8.2) g/dL Albumin (3.4-5.0) g/dL Urine Color (Yellw/Straw) Urine Clarity (Clear) Urine pH (5.0-8.5) Ur Specific [place] (1.002-1.035) Urine Protein (Neg-Trace) mg/dL Urine Glucose (UA) (Negative) mg/dL Urine Ketones (Negative) mg/dL Urine Occult Blood (Negative) Urine Nitrate (Negative) Urine Bilirubin (Negative) Urine Urobilinogen (Less than 2) mg/dL Ur Leukocyte Esterase (Negative) Urine RBC (0-3) /hpf Urine WBC (0-5) /hpf Ur Squamous Epith Cells (0-5) /hpf Micro UA Comment Ur Microscopic Review Urine Culture Comments Vancomycin Trough 10.9 H (5.0-10.0) mcg/mL Urine Opiates Screen (Neg) Ur Barbiturates Screen (Neg) Ur Amphetamines Screen (Neg) U Benzodiazepines Scrn (Neg) Urine Cocaine Screen (Neg) U Cannabinoids Screen (Neg) 04/13/18 04/13/18 Range/Units 06:27 06:27 CBC w Diff Auto diff final WBC 6.1 (4.0-11.0) th/mm3 RBC 3.26 L (4.00-5.30) mil/mm3 Hgb 10.8 L (11.6-15.3) gm/dL Hct 33.2 L (35.0-46.0) % MCV 101.8 H (80.0-100.0) fL MCH 33.1 (27.0-34.0) pg MCHC 32.5 (32.0-36.0) % RDW 13.0 (11.6-17.2) % Plt Count 287 (150-450) th/mm3 MPV 7.7 (7.0-11.0) fL Neut % (Auto) 50.8 (16.0-70.0) % Lymph % (Auto) 35.5 (9.0-44.0) % Dewitt % (Auto) 9.9 H (0.0-8.0) % Eos % (Auto) 3.1 (0.0-4.0) % Baso % (Auto) 0.7 (0.0-2.0) % Neut # (Auto) 3.1 (1.8-7.7) th/mm3 Lymph # (Auto) 2.2 (1.0-4.8) th/mm3 Dewitt # (Auto) 0.6 (0.0-0.9) th/mm3 Eos # (Auto) 0.2 (0.0-0.4) th/mm3 Baso # (Auto) 0.0 (0.0-0.2) th/mm3 WBC Differential . Differential Comment . PT (9.8-11.6) sec INR Ratio APTT (24.3-30.1) sec Sodium 141 (136-145) meq/L Potassium 3.8 (3.5-5.1) meq/L Chloride 107 (98-107) meq/L Carbon Dioxide 26.9 (21.0-32.0) meq/L Anion Gap 7 (5-15) meq/L BUN 6 L (7-18) mg/dL Creatinine 0.64 (0.50-1.00) mg/dL Estimated GFR Greater than 89 (>89) mL/min Random Glucose 99 (74-106) mg/dL Lactic Acid (0.4-2.0) mmol/L Calcium 8.1 L (8.5-10.1) mg/dL Total Bilirubin 0.5 (0.2-1.0) mg/dL AST 30 (15-37) U/L ALT 28 (10-53) U/L Alkaline Phosphatase 73 (45-117) U/L Total Protein 6.0 L D (6.4-8.2) g/dL Albumin 2.6 L (3.4-5.0) g/dL Urine Color (Yellw/Straw) Urine Clarity (Clear) Urine pH (5.0-8.5) Ur Specific [place] (1.002-1.035) Urine Protein (Neg-Trace) mg/dL Urine Glucose (UA) (Negative) mg/dL Urine Ketones (Negative) mg/dL Urine Occult Blood (Negative) Urine Nitrate (Negative) Urine Bilirubin (Negative) Urine Urobilinogen (Less than 2) mg/dL Ur Leukocyte Esterase (Negative) Urine RBC (0-3) /hpf Urine WBC (0-5) /hpf Ur Squamous Epith Cells (0-5) /hpf Micro UA Comment Ur Microscopic Review Urine Culture Comments Vancomycin Trough (5.0-10.0) mcg/mL Urine Opiates Screen (Neg) Ur Barbiturates Screen (Neg) Ur Amphetamines Screen (Neg) U Benzodiazepines Scrn (Neg) Urine Cocaine Screen (Neg) U Cannabinoids Screen (Neg) Imaging Data Radiologist's impression: Venous Doppler Study 04/10/18 17:29 CONCLUSION: No venous thrombosis in the left upper extremity. Chest X-Ray 04/10/18 17:31 CONCLUSION: No acute cardiopulmonary disease. Discharge Plan Discharge Disposition Patient Disposition: 30 Still Patient Discharge Condition Condition: Stable Physicians Team ED Provider: Marito Rutherford Primary Care Provider: UNKNOWN, Attending Provider: Leroy Downs Other Providers: [employer] Status ED Status: Left Department Discharge Information Discharge Date/Time: 04/10/18 20:50
[2018-04-10 18:23] LABS: Baso # (Auto) 0.1 th/mm3 (0.0-0.2); Baso % (Auto) 0.3 % (0.0-2.0); Hematocrit 37.6 % (35.0-46.0); Hemoglobin 13.1 gm/dL (11.6-15.3); Lymph # (Auto) 0.7 th/mm3 (1.0-4.8); Lymph % (Auto) 3.5 % (9.0-44.0); Mean Corpuscular HGB Conc 34.9 % (32.0-36.0); Mean Corpuscular Hemoglobin 34.5 pg (27.0-34.0); Mean Corpuscular Volume 98.9 fL (80.0-100.0); Mean Platelet Volume 8.1 fL (7.0-11.0); Mono % (Auto) 4.8 % (0.0-8.0); Neut # (Auto) 19.4 th/mm3 (1.8-7.7); Neut % (Auto) 91.4 % (16.0-70.0); Platelet Count 363 th/mm3 (150-450); Red Cell Distribution Width 13.4 % (11.6-17.2); White Blood Count 21.2 th/mm3 (4.0-11.0)
[2018-04-10 18:33] LABS: Chloride 104 meq/L (98-107); Potassium 3.4 meq/L (3.5-5.1); Sodium 138 meq/L (136-145)
[2018-04-10 18:36] LABS: Calcium 8.5 mg/dL (8.5-10.1); Glucose,Random 102 mg/dL (74-106)
[2018-04-10 18:37] LABS: Albumin 3.6 g/dL (3.4-5.0); Anion Gap 12 meq/L (5-15); Blood Urea Nitrogen 11 mg/dL (7-18); Carbon Dioxide 22.3 meq/L (21.0-32.0)
[2018-04-10 18:40] LABS: Alanine Aminotransferase 19 U/L (10-53); Aspartate Aminotransferase 31 U/L (15-37); Glomerular Filtration Rate 75 mL/min (>89)
[2018-04-10 18:42] LABS: Total Protein 7.2 g/dL (6.4-8.2)
[2018-04-10 18:43] LABS: Alkaline Phosphatase 87 U/L (45-117)
--- NOTE | 2018-04-10 18:51 | US ---
EXAM DATE: 04/10/2018 5:29 PM EDT AGE/SEX: 58 years / Female INDICATIONS: Left arm swelling. CLINICAL DATA: This is the patient's initial encounter. Patient reports that signs and symptoms have been present for 1 day and indicates a pain score of 8/10. MEDICAL/SURGICAL HISTORY: Chronic obstructive pulmonary disease. Gastroesophageal reflux disea se. Back pain. Kidney stones. Left arm lymphedema. Neck pain. Shingles. Ulcer. Hysterectomy. Mastec devonte, left. Neck surgery. COMPARISON: [facility] – [place], US ARM LEFT VENOUS DOPPLER, 02/07/2017. . FINDINGS: The vessels are compressible and augmentation response is documented. No filling defects a re seen. The flow is phasic with respiration. Other: None. CONCLUSION: No venous thrombosis in the left upper extremity. Electronically signed by: Iban Curtis MD 04/10/2018 6:50 PM EDT
[2018-04-10 19:02] LABS: Bilirubin,Urine Negative (Negative); Clarity,Urine Clear (Clear); Color,Urine Yellow (Yellw/Straw); Glucose,Urine (UA) Negative (Negative); Leukocyte Esterase,Urine Negative (Negative); Nitrite,Urine Negative (Negative); Specific Gravity,Urine Less/Equal 1.005 (1.002-1.035); Urobilinogen,Urine 0.2 mg/dL (Less than 2)
[2018-04-10] MEDS ORDERED: Piperacil/Tazo 3.375 GM Premix 50 ML IV.SIG ONE (19:05)
[2018-04-10] MEDS ORDERED: Vancomycin Inj 1 GM/200 ML PIGGYBACK IV.SIG ONE (19:05)
[2018-04-10 19:07] LABS: RBC,Urine 0-3 /hpf (0-3); Squamous Epithelial Cell,Urine 0-5 /hpf (0-5); WBC,Urine 0-5 /hpf (0-5)
[2018-04-10] MEDS ORDERED: Morphine Sulfate Inj 2 MG/ML Vial IV.PUSH ONE (19:12)
[2018-04-10] MEDS ORDERED: Vancomycin Inj 1,000 MG in Sodium Chlor 0.9% Inj 250 ML IV.SIG ONE (19:15)
[2018-04-10 19:18] LABS: Amphetamine Screen,Urine Neg (Neg)
[2018-04-10 19:19] LABS: Barbiturate Screen,Urine Neg (Neg)
[2018-04-10 19:22] LABS: Cannabinoid Screen,Urine Pos (Neg)
[2018-04-10 19:24] LABS: Cocaine Screen,Urine Neg (Neg)
[2018-04-10 19:32] LABS: Activated Partial Thrombo Time 24.3 sec (24.3-30.1); INR 1.1 Ratio; Prothrombin Time 10.8 sec (9.8-11.6)
[2018-04-10 19:33] LABS: Opiate Screen,Urine Neg (Neg)
[2018-04-10] MEDS ORDERED: Vancomycin Consult Pharmacy OTHER PRN (20:01)
[2018-04-10] MEDS: Heparin - SQ 10,000 UNITS/ML Vial SQ SCH (21:13)
[2018-04-10] MEDS: Sod Chloride 0.9% Inj 1,000 ML IV.CONT SCH (21:15)
[2018-04-10] MEDS: Morphine Sulfate Inj 2 MG/ML Vial IV.PUSH PRN (22:42)
[2018-04-11] MEDS: Piperacil/Tazo 3.375 GM Premix 50 ML IV.SIG SCH ×4 (00:39→18:08)
[2018-04-11] MEDS: Morphine Sulfate Inj 2 MG/ML Vial IV.PUSH PRN ×6 (01:20→23:58)
[2018-04-11 06:34] LABS: Baso % (Auto) 0.2 % (0.0-2.0); Eos % (Auto) 0.1 % (0.0-4.0); Hemoglobin 11.1 gm/dL (11.6-15.3); Lymph % (Auto) 8.3 % (9.0-44.0); Mean Corpuscular HGB Conc 33.6 % (32.0-36.0); Mean Corpuscular Volume 101.1 fL (80.0-100.0); Mean Platelet Volume 7.6 fL (7.0-11.0); Mono # (Auto) 0.4 th/mm3 (0.0-0.9); Mono % (Auto) 3.4 % (0.0-8.0); Platelet Count 275 th/mm3 (150-450); Red Blood Count 3.26 mil/mm3 (4.00-5.30); Red Cell Distribution Width 12.9 % (11.6-17.2); White Blood Count 12.4 th/mm3 (4.0-11.0)
[2018-04-11 07:07] LABS: Chloride 104 meq/L (98-107); Potassium 3.3 meq/L (3.5-5.1); Sodium 137 meq/L (136-145)
[2018-04-11 07:10] LABS: Anion Gap 10 meq/L (5-15); Blood Urea Nitrogen 9 mg/dL (7-18); Calcium 7.9 mg/dL (8.5-10.1); Carbon Dioxide 22.8 meq/L (21.0-32.0); Glucose,Random 101 mg/dL (74-106)
[2018-04-11 07:14] LABS: Glomerular Filtration Rate Greater Than 89 mL/min (>89)
[2018-04-11] MEDS: Sod Chloride 0.9% Inj 1,000 ML IV.CONT SCH (07:55)
[2018-04-11] MEDS: Vancomycin Inj 1,000 MG in Sodium Chlor 0.9% Inj 250 ML IV.SIG SCH ×2 (07:59→22:05)
[2018-04-11] MEDS: Heparin - SQ 10,000 UNITS/ML Vial SQ SCH ×2 (08:00→22:07)
--- NOTE | 2018-04-11 11:37 | P.HP ---
History of Present Illness Primary Care Physician: UNKNOWN Chief Complaint: Left arm swelling associated with febrile episode History of Present Illness: 58-year-old female who past medical history of breast cancer status post partial mastectomy and a history of chronic lymphedema of her left upper extremity presented to the ED for evaluation of left arm swelling and redness associated with febrile illness with a temp of 101, which improved with Tylenol. Doppler of the left upper extremity was negative. She denies any chest pain or shortness of pain - Diagnosis (1) Sepsis affecting skin (2) Cellulitis Inpatient Certification: I certify that the inpatient services were ordered in accordance with Medicare regulations governing the order. This includes certification that hospital inpatient services are reasonable and necessary and in the case of services not specified as inpatient-only under 42 CFR 419.22(n), that they are appropriately provided as inpatient services in accordance to with the 2-midnight benchmark under 43 CFR 412.3(e) Estimated Total Length of Stay (Days): 3 Plans for Post Hospital Care: Home Review of Systems All other systems reviewed negative except as stated in HPI PMFSH - History History Provided By: Patient - Medical History Medical History: Medical History (Last Updated 04/10/18 @ 17:47 by Estevan Hess RN) Anxiety Back pain COPD (chronic obstructive pulmonary disease) GERD (gastroesophageal reflux disease) History of hysterectomy Kidney stones Lymphedema of arm Neck pain Shingles Ulcer - Surgical History Surgical History: Surgical History (Last Updated 04/10/18 @ 17:47 by Estevan Hess RN) History of back surgery History of mastectomy History of neck surgery - Tobacco History Second Hand Smoke Exposure: No Tobacco Use In Past 30 Days: Yes Smoking Status: Former smoker Tobacco Type: Cigarettes - Alcohol History How Often Do You Have a Drink Containing Alcohol: Never - Substance Use History Substance History: Past History - Substance Use Type Marijuana Status: Sustained Remission Route Used: Inhalation Comment: increased appetite during chemo - Travel History Recent Travel in the [place] Within the Last 8 Weeks: No Recent Travel Out of the Country Within the Last 8 Weeks: No - Immunization History Tetanus Immunization: Unable to Assess Hx Influenza Vaccine This Season: No Medications and Allergies Active Medications: Active Medications Albuterol (Duoneb Neb (Prn)) 1 ampul NEB Q2HR NEB PRN PRN Reason: SHORTNESS OF BREATH Budesonide/Formoterol Fumarate (Symbicort 160/4.5 Mcg Inh) 1 puff INH BID [facility] Heparin Sodium (Porcine) (Heparin Inj) 5,000 units SQ Q12H [facility] Last Admin: 04/11/18 08:00 Dose: Not Given Piperacillin/Tazobactam/Dextrose (Zosyn 3.375 Gm Premix) 50 mls @ 100 mls/hr IV.SIG Q6H [facility] Last Infusion: 04/11/18 06:50 Dose: Infused Vancomycin HCl 1,000 mg/ (Sodium Chloride) 250 mls @ 250 mls/hr IV.SIG Q12H [facility] Last Infusion: 04/11/18 09:02 Dose: Infused Lactobacillus Acidophilus (Lactinex) 1 tab PO BID [facility] Miscellaneous Information ([facility] Ordered Lab Info) 0 each OTHER ONCE ONE Stop: 04/12/18 07:46 Morphine Sulfate (Morphine Inj) 2 mg IV.PUSH Q4H PRN PRN Reason: PAIN 1-10 AND/OR FEVER >101F Ondansetron HCl (Zofran Inj) 4 mg IV.PUSH Q6H PRN PRN Reason: NAUSEA OR VOMITING Last Admin: 04/11/18 08:06 Dose: 4 mg Pharmacy Profile Note (Vancomycin Consult Pharmacy) 1 each OTHER UNSCH PRN PRN Reason: Pharmacy to dose Allergies Allergy/AdvReac Type Severity Reaction Status Date / Time nitrofurantoin Allergy Severe SEIZURES Verified 04/10/18 17:15 AND SWELLING aspirin AdvReac Unknown Vomiting Verified 04/10/18 17:15 oxycodone AdvReac Unknown Vomiting Verified 04/10/18 17:15 Home Medications Medication Instructions Recorded Confirmed Type albuterol sulfate 2 puff INHALATION Q4-6H PRN 04/10/18 04/10/18 History budesonide-formoterol [Symbicort] 2 puff INHALATION BID 04/10/18 04/10/18 History cyclobenzaprine 10 mg PO TID PRN 04/10/18 04/10/18 History valacyclovir [Valtrex] 1,000 mg PO BID 04/10/18 04/10/18 History Exam Vital signs: Vital Signs 04/10/18 17:12 04/10/18 20:41 04/10/18 21:20 Temperature 98.8 F 98.8 F Pulse Rate 115 H 91 H 89 Respiratory Rate 18 18 Blood Pressure 105/84 116/55 L Pulse Oximetry 96 04/10/18 22:00 04/11/18 00:00 04/11/18 06:00 Temperature 100.2 F H 98.5 F 98.5 F Pulse Rate 92 H 83 83 Respiratory Rate 21 18 18 Blood Pressure 141/69 H 111/66 111/66 Pulse Oximetry 95 96 04/11/18 08:00 Temperature 99.2 F Pulse Rate 93 H Respiratory Rate 20 Blood Pressure 127/64 Pulse Oximetry 93 L Intake & Output 04/10/18 04/11/18 04/11/18 18:59 06:59 18:59 Intake Total 3545 / 3545 505 / 505 Output Total 400 / 400 Balance 3145 / 3145 505 / 505 Weight 60 kg 57 kg Intake: IV 3145 / 3145 505 / 505 NS Inj 1,000 ML @ 100 mls/hr IV 745 / 745 255 / 255 .CONT .Q10H [facility] Rx#:[id number] Zosyn 3.375 GM Premix 50 ML @ 150 / 150 100 mls/hr IV.SIG Q6H [facility] Rx#: [id number] NS Inj 1,000 ML @ Wide Open IV. 1999 SIG [facility] Rx#:[id number] Vancomycin Inj 1 gm In 200 ml @ 250 / 250 200 mls/hr IV.SIG ONCE ONE Rx# :[id number] Vancomycin Inj 1,000 MG In NS 250 / 250 Inj 250 ML @ 250 mls/hr IV.SIG Q12H [facility] Rx#:[id number] Oral 200 / 200 Oral Supplement 200 / 200 Output: Urine 400 / 400 Other: Post Void Residual 400 # Voids 1 Date of Last Bowel Movement 04/09/18 Weight On Admission 57 kg Narrative: GENERAL: NAD SKIN: Warm and dry. left arm swelling and redness HEAD: Atraumatic. Normocephalic. EYES: Pupils equal and round. No scleral icterus. No injection or drainage. ENT: No nasal bleeding or discharge. Mucous membranes pink and moist. NECK: Trachea midline. No JVD. CARDIOVASCULAR: Regular rate and rhythm. RESPIRATORY: No accessory muscle use. Clear to auscultation. Breath sounds equal bilaterally. GASTROINTESTINAL: Abdomen soft, non-tender, nondistended. Hepatic and splenic margins not palpable. MUSCULOSKELETAL: Extremities without clubbing, cyanosis, or edema. No obvious deformities. NEUROLOGICAL: Awake and alert. No obvious cranial nerve deficits. Motor grossly within normal limits. Five out of 5 muscle strength in the arms and legs. Normal speech. PSYCHIATRIC: Appropriate mood and affect; insight and judgment normal. Results - Labs CBC & Chem 7: 04/11/18 06:00 04/11/18 06:00 Labs: Laboratory Results - last 24 hr 04/10/18 04/10/18 04/10/18 18:10 18:10 18:37 CBC w Diff Auto diff final WBC 21.2 H RBC 3.80 L Hgb 13.1 Hct 37.6 MCV 98.9 MCH 34.5 H MCHC 34.9 RDW 13.4 Plt Count 363 MPV 8.1 Neut % (Auto) 91.4 H Lymph % (Auto) 3.5 L [place] % (Auto) 4.8 Eos % (Auto) 0.0 Baso % (Auto) 0.3 Neut # (Auto) 19.4 H Lymph # (Auto) 0.7 L [place] # (Auto) 1.0 H Eos # (Auto) 0.0 Baso # (Auto) 0.1 WBC Differential . Differential Comment . PT INR APTT Sodium 138 Potassium 3.4 L Chloride 104 Carbon Dioxide 22.3 Anion Gap 12 BUN 11 Creatinine 0.79 Estimated GFR 75 L Random Glucose 102 Lactic Acid 2.1 H Calcium 8.5 Total Bilirubin 1.1 H AST 31 ALT 19 Alkaline Phosphatase 87 Total Protein 7.2 Albumin 3.6 Urine Color Urine Clarity Urine pH Ur Specific [place] Urine Protein Urine Glucose (UA) Urine Ketones Urine Occult Blood Urine Nitrate Urine Bilirubin Urine Urobilinogen Ur Leukocyte Esterase Urine RBC Urine WBC Ur Squamous Epith Cells Micro UA Comment Ur Microscopic Review Urine Culture Comments Urine Opiates Screen Ur Barbiturates Screen Ur Amphetamines Screen U Benzodiazepines Scrn Urine Cocaine Screen U Cannabinoids Screen 04/10/18 04/10/18 04/10/18 18:45 18:45 19:07 CBC w Diff WBC RBC Hgb Hct MCV MCH MCHC RDW Plt Count MPV Neut % (Auto) Lymph % (Auto) [place] % (Auto) Eos % (Auto) Baso % (Auto) Neut # (Auto) Lymph # (Auto) [place] # (Auto) Eos # (Auto) Baso # (Auto) WBC Differential Differential Comment PT 10.8 INR 1.1 APTT 24.3 Sodium Potassium Chloride Carbon Dioxide Anion Gap BUN Creatinine Estimated GFR Random Glucose Lactic Acid Calcium Total Bilirubin AST ALT Alkaline Phosphatase Total Protein Albumin Urine Color Yellow Urine Clarity Clear Urine pH 6.0 Ur Specific [place] Less/equal 1.005 Urine Protein Negative Urine Glucose (UA) Negative Urine Ketones Negative Urine Occult Blood Moderate H Urine Nitrate Negative Urine Bilirubin Negative Urine Urobilinogen 0.2 Ur Leukocyte Esterase Negative Urine RBC 0-3 Urine WBC 0-5 Ur Squamous Epith Cells 0-5 Micro UA Comment Culture not ind Ur Microscopic Review Microscopic reviewed Urine Culture Comments Culture not ind Urine Opiates Screen Neg Ur Barbiturates Screen Neg Ur Amphetamines Screen Neg U Benzodiazepines Scrn Neg Urine Cocaine Screen Neg U Cannabinoids Screen Pos H 04/11/18 04/11/18 06:00 06:00 CBC w Diff Auto diff final WBC 12.4 H RBC 3.26 L Hgb 11.1 L D Hct 33.0 L MCV 101.1 H MCH 34.0 MCHC 33.6 RDW 12.9 Plt Count 275 MPV 7.6 Neut % (Auto) 88.0 H Lymph % (Auto) 8.3 L [place] % (Auto) 3.4 Eos % (Auto) 0.1 Baso % (Auto) 0.2 Neut # (Auto) 11.0 H Lymph # (Auto) 1.0 [place] # (Auto) 0.4 Eos # (Auto) 0.0 Baso # (Auto) 0.0 WBC Differential . Differential Comment . PT INR APTT Sodium 137 Potassium 3.3 L Chloride 104 Carbon Dioxide 22.8 Anion Gap 10 BUN 9 Creatinine 0.61 Estimated GFR Greater than 89 Random Glucose 101 Lactic Acid Calcium 7.9 L Total Bilirubin AST ALT Alkaline Phosphatase Total Protein Albumin Urine Color Urine Clarity Urine pH Ur Specific [place] Urine Protein Urine Glucose (UA) Urine Ketones Urine Occult Blood Urine Nitrate Urine Bilirubin Urine Urobilinogen Ur Leukocyte Esterase Urine RBC Urine WBC Ur Squamous Epith Cells Micro UA Comment Ur Microscopic Review Urine Culture Comments Urine Opiates Screen Ur Barbiturates Screen Ur Amphetamines Screen U Benzodiazepines Scrn Urine Cocaine Screen U Cannabinoids Screen - Imaging Impressions Venous Doppler Study 04/10/18 17:29 CONCLUSION: No venous thrombosis in the left upper extremity. Chest X-Ray 04/10/18 17:31 CONCLUSION: No acute cardiopulmonary disease. Caprini VTE Risk Assessment Caprini VTE Risk Assessment: No/Low Risk (score <= 1) Caprini Risk Assessment Model: Point Value = 1 Point Value = 2 Point Value = 3 Point Value = 5 Age 41-60 Minor surgery BMI > 25 kg/m2 Swollen legs Varicose veins or History of unexplained or recurrent spontaneous Oral contraceptives or hormone replacement Sepsis (< 1 month) Serious lung disease, including pneumonia (< 1 month) Abnormal pulmonary function Acute myocardial infarction Congestive heart failure (< 1 month) History of inflammatory bowel disease Medical patient at bed rest Age 61-74 Arthroscopic surgery Major open surgery (> 45 min) Laparoscopic surgery (> 45 min) Malignancy Confined to bed (> 72 hours) Immobilizing plaster cast Central venous access Age >= 75 History of VTE Family history of VTE Factor V Leiden Prothrombin [id number] Lupus anticoagulant Anticardiolipin antibodies Elevated serum homocysteine Heparin-induced thrombocytopenia Other congenital or acquired thrombophilia Stroke (< 1 month) Elective arthroplasty Hip, pelvis, or leg fracture Acute spinal cord injury (< 1 month) Prophylaxis Regimen: Total Risk Factor Score Risk Level Prophylaxis Regimen 0-1 Low Early ambulation 2 Moderate Order ONE of the following: *Sequential Compression Device (SCD) *Heparin 5000 units SQ BID 3-4 Higher Order ONE of the following medications: *Heparin 5000 units SQ TID *Enoxaparin/Lovenox 40 mg SQ daily (WT < 150 kg, CrCl > 30 mL/min) *Enoxaparin/Lovenox 30 mg SQ daily (WT < 150 kg, CrCl > 10-29 mL/min) *Enoxaparin/Lovenox 30 mg SQ BID (WT < 150 kg, CrCl > 30 mL/min) AND/OR *Sequential Compression Device (SCD) 5 or more Highest Order ONE of the following medications: *Heparin 5000 units SQ TID (Preferred with Epidurals) *Enoxaparin/Lovenox 40 mg SQ daily (WT < 150 kg, CrCl > 30 mL/min) *Enoxaparin/Lovenox 30 mg SQ daily (WT < 150 kg, CrCl > 10-29 mL/min) *Enoxaparin/Lovenox 30 mg SQ BID (WT < 150 kg, CrCl > 30 mL/min) AND *Sequential Compression Device (SCD) Assessment and Plan - Assessment (1) Sepsis affecting skin Code(s): A41.9 - Sepsis, unspecified organism Status: Acute (2) Cellulitis Code(s): L03.90 - Cellulitis, unspecified Status: Acute - Plan 58-year-old female with: Sepsis 2/2 Left arm cellulitis Currently on Zosyn and Vancomycin pending Blood cultures Left upper extremity Cellulitis Currently on Zosyn and Vancomycin No venous thrombosis in the left upper extremity per Doppler Blood culture pending Infectious Disease consult PRN Chronic Lymphedema No venous thrombosis in the left upper extremity per Doppler Monitor DVT prophylaxis: Lovenox
[2018-04-11] MEDS: Acetaminophen 325 MG Tablet PO PRN ×2 (12:01→18:52)
[2018-04-11] MEDS ORDERED: Promethazine 25 MG Supp RECTAL PRN (12:20)
[2018-04-11] MEDS: Lactobacillus Acidophilus/L. Spores Tablet PO SCH (22:07)
[2018-04-11] MEDS: Budesonide-Formoterol 160/4.5 MCG 6 GM Inhaler INH SCH (22:08)
[2018-04-12] MEDS: Piperacil/Tazo 3.375 GM Premix 50 ML IV.SIG SCH ×4 (06:32→20:30)
[2018-04-12] MEDS ORDERED: Pharmacy Ordered Lab Info OTHER ONE (07:45)
[2018-04-12] MEDS: Morphine Sulfate Inj 2 MG/ML Vial IV.PUSH PRN ×3 (07:51→20:32)
[2018-04-12] MEDS: Vancomycin Inj 1,000 MG in Sodium Chlor 0.9% Inj 250 ML IV.SIG SCH ×2 (07:56→20:30)
[2018-04-12] MEDS: Heparin - SQ 10,000 UNITS/ML Vial SQ SCH ×3 (08:01→20:32)
[2018-04-12] MEDS: Budesonide-Formoterol 160/4.5 MCG 6 GM Inhaler INH SCH ×2 (08:02→21:32)
[2018-04-12] MEDS: Lactobacillus Acidophilus/L. Spores Tablet PO SCH ×2 (08:02→20:31)
--- NOTE | 2018-04-12 11:11 | P.PN ---
Subjective Interval history: Follow-up sepsis/left upper extremity cellulitis April 12, 2018-patient seen and examined, currently afebrile and reports some slight improvement of left upper extremity tenderness and swelling Physical Exam Vital signs: Vital Signs 04/11/18 12:00 04/11/18 16:00 04/11/18 20:00 Temperature 99.7 F H 97.7 F 99.4 F Pulse Rate 81 84 89 Respiratory Rate 20 20 20 Blood Pressure 142/76 H 135/76 142/81 H Pulse Oximetry 94 L 95 95 04/12/18 00:00 04/12/18 08:00 04/12/18 08:25 Temperature 97.8 F 98.7 F Pulse Rate 85 82 Respiratory Rate 20 18 20 Blood Pressure 147/83 H 144/76 H Pulse Oximetry 96 95 Intake & Output 04/11/18 04/12/18 04/12/18 18:59 06:59 18:59 Intake Total 1795 / 1795 2300 / 2300 50 / 50 Balance 1795 / 1795 2300 / 2300 50 / 50 Weight 58.9 kg Intake: IV 955 / 955 300 / 300 50 / 50 NS Inj 1,000 ML @ 100 mls/hr IV 605 / 605 .CONT .Q10H [facility] Rx#:[id number] Zosyn 3.375 GM Premix 50 ML @ 100 / 100 50 / 50 50 / 50 100 mls/hr IV.SIG Q6H [facility] Rx#: [id number] Vancomycin Inj 1,000 MG In NS 250 / 250 250 / 250 Inj 250 ML @ 250 mls/hr IV.SIG Q12H [facility] Rx#:[id number] Oral 840 / 840 1999 Other: # Voids 10 Date of Last Bowel Movement 04/09/18 04/09/18 Narrative: GENERAL: NAD SKIN: Warm and dry. left arm swelling and redness HEAD: Atraumatic. Normocephalic. EYES: Pupils equal and round. No scleral icterus. No injection or drainage. ENT: No nasal bleeding or discharge. Mucous membranes pink and moist. NECK: Trachea midline. No JVD. CARDIOVASCULAR: Regular rate and rhythm. RESPIRATORY: No accessory muscle use. Clear to auscultation. Breath sounds equal bilaterally. GASTROINTESTINAL: Abdomen soft, non-tender, nondistended. Hepatic and splenic margins not palpable. MUSCULOSKELETAL: Extremities without clubbing, cyanosis, or edema. No obvious deformities. NEUROLOGICAL: Awake and alert. No obvious cranial nerve deficits. Motor grossly within normal limits. Five out of 5 muscle strength in the arms and legs. Normal speech. PSYCHIATRIC: Appropriate mood and affect; insight and judgment normal. Results - Labs CBC & Chem 7: 04/11/18 06:00 04/11/18 06:00 Laboratory Results - last 24 hr 04/12/18 07:22 Vancomycin Trough 10.9 H Microbiology 04/10/18 18:25 Blood - Peripheral Aerobic Blood Culture - Preliminary No growth in 2 days 04/10/18 18:25 Blood - Peripheral Anaerobic Blood Culture - Preliminary No growth in 2 days 04/10/18 18:10 Blood - Peripheral Aerobic Blood Culture - Preliminary No growth in 2 days 04/10/18 18:10 Blood - Peripheral Anaerobic Blood Culture - Preliminary No growth in 2 days Assessment and Plan - Assessment (1) Sepsis affecting skin Code(s): A41.9 - Sepsis, unspecified organism Status: Acute (2) Cellulitis Code(s): L03.90 - Cellulitis, unspecified Status: Acute - Plan 58-year-old female with: Sepsis-resolved 2/2 Left arm cellulitis Currently on Zosyn and Vancomycin pending Blood cultures Left upper extremity Cellulitis Currently on Zosyn and Vancomycin, continue to monitor culture No venous thrombosis in the left upper extremity per Doppler Infectious Disease consult PRN Chronic Lymphedema No venous thrombosis in the left upper extremity per Doppler Monitor DVT prophylaxis: Lovenox
[2018-04-13] MEDS: Piperacil/Tazo 3.375 GM Premix 50 ML IV.SIG SCH ×3 (02:21→12:57)
[2018-04-13] MEDS: Morphine Sulfate Inj 2 MG/ML Vial IV.PUSH PRN ×3 (02:32→10:24)
[2018-04-13 07:06] LABS: Baso % (Auto) 0.7 % (0.0-2.0); Eos # (Auto) 0.2 th/mm3 (0.0-0.4); Eos % (Auto) 3.1 % (0.0-4.0); Hematocrit 33.2 % (35.0-46.0); Hemoglobin 10.8 gm/dL (11.6-15.3); Lymph # (Auto) 2.2 th/mm3 (1.0-4.8); Lymph % (Auto) 35.5 % (9.0-44.0); Mean Corpuscular HGB Conc 32.5 % (32.0-36.0); Mean Corpuscular Hemoglobin 33.1 pg (27.0-34.0); Mean Corpuscular Volume 101.8 fL (80.0-100.0); Mean Platelet Volume 7.7 fL (7.0-11.0); Mono # (Auto) 0.6 th/mm3 (0.0-0.9); Mono % (Auto) 9.9 % (0.0-8.0); Neut # (Auto) 3.1 th/mm3 (1.8-7.7); Neut % (Auto) 50.8 % (16.0-70.0); Platelet Count 287 th/mm3 (150-450); Red Blood Count 3.26 mil/mm3 (4.00-5.30); White Blood Count 6.1 th/mm3 (4.0-11.0)
[2018-04-13 07:12] LABS: Chloride 107 meq/L (98-107); Potassium 3.8 meq/L (3.5-5.1); Sodium 141 meq/L (136-145)
[2018-04-13 07:16] LABS: Calcium 8.1 mg/dL (8.5-10.1)
[2018-04-13 07:36] LABS: Alanine Aminotransferase 28 U/L (10-53); Albumin 2.6 g/dL (3.4-5.0); Alkaline Phosphatase 73 U/L (45-117); Anion Gap 7 meq/L (5-15); Aspartate Aminotransferase 30 U/L (15-37); Blood Urea Nitrogen 6 mg/dL (7-18); Carbon Dioxide 26.9 meq/L (21.0-32.0); Glomerular Filtration Rate Greater Than 89 mL/min (>89); Glucose,Random 99 mg/dL (74-106)
[2018-04-13] MEDS: Vancomycin Inj 1,000 MG in Sodium Chlor 0.9% Inj 250 ML IV.SIG SCH (09:15)
[2018-04-13] MEDS: Lactobacillus Acidophilus/L. Spores Tablet PO SCH (09:15)
[2018-04-13] MEDS: Heparin - SQ 10,000 UNITS/ML Vial SQ SCH ×2 (09:16→09:21)
--- NOTE | 2018-04-13 11:24 | P.PN ---
Subjective Interval history: Follow-up sepsis/left upper extremity cellulitis April 12, 2018-patient seen and examined, currently afebrile and reports some slight improvement of left upper extremity tenderness and swelling April 13, 2018-patient seen and examined, reported improvement of upper extremity swelling and tenderness. Still complaining of itching or rash on left anterior chest. Currently afebrile Physical Exam Vital signs: Vital Signs 04/12/18 12:00 04/12/18 14:15 04/12/18 16:00 Temperature 98.0 F 98.2 F Pulse Rate 85 75 Respiratory Rate 18 18 Blood Pressure 126/68 130/64 Pulse Oximetry 95 97 04/12/18 20:00 04/12/18 23:52 04/13/18 07:00 Temperature 97.9 F 98.9 F Pulse Rate 79 74 Respiratory Rate 18 18 Blood Pressure 135/68 134/75 Pulse Oximetry 95 97 04/13/18 08:00 Temperature 98.1 F Pulse Rate 69 Respiratory Rate 15 Blood Pressure 116/74 Pulse Oximetry 97 Intake & Output 04/12/18 04/13/18 04/13/18 18:59 06:59 18:59 Intake Total 1070 / 1070 350 / 350 50 / 50 Output Total 3 / 3 Balance 1067 / 1067 350 / 350 50 / 50 Weight 58.9 kg Intake: IV 350 / 350 350 / 350 50 / 50 Zosyn 3.375 GM Premix 50 ML @ 100 / 100 100 / 100 50 / 50 100 mls/hr IV.SIG Q6H [facility] Rx#: [id number] Vancomycin Inj 1,000 MG In NS 250 / 250 250 / 250 Inj 250 ML @ 250 mls/hr IV.SIG Q12H [facility] Rx#:[id number] Oral 720 / 720 Output: Urine 3 / 3 Other: # Voids 4 Date of Last Bowel Movement 04/09/18 04/09/18 Narrative: GENERAL: NAD SKIN: Warm and dry. left arm swelling and redness improving. rash to anterior left chest HEAD: Atraumatic. Normocephalic. EYES: Pupils equal and round. No scleral icterus. No injection or drainage. ENT: No nasal bleeding or discharge. Mucous membranes pink and moist. NECK: Trachea midline. No JVD. CARDIOVASCULAR: Regular rate and rhythm. RESPIRATORY: No accessory muscle use. Clear to auscultation. Breath sounds equal bilaterally. GASTROINTESTINAL: Abdomen soft, non-tender, nondistended. Hepatic and splenic margins not palpable. MUSCULOSKELETAL: Extremities without clubbing, cyanosis, or edema. No obvious deformities. NEUROLOGICAL: Awake and alert. No obvious cranial nerve deficits. Motor grossly within normal limits. Five out of 5 muscle strength in the arms and legs. Normal speech. PSYCHIATRIC: Appropriate mood and affect; insight and judgment normal. Results - Labs CBC & Chem 7: 04/13/18 06:27 04/13/18 06:27 Laboratory Results - last 24 hr 04/13/18 04/13/18 06:27 06:27 CBC w Diff Auto diff final WBC 6.1 RBC 3.26 L Hgb 10.8 L Hct 33.2 L MCV 101.8 H MCH 33.1 MCHC 32.5 RDW 13.0 Plt Count 287 MPV 7.7 Neut % (Auto) 50.8 Lymph % (Auto) 35.5 [place] % (Auto) 9.9 H Eos % (Auto) 3.1 Baso % (Auto) 0.7 Neut # (Auto) 3.1 Lymph # (Auto) 2.2 [place] # (Auto) 0.6 Eos # (Auto) 0.2 Baso # (Auto) 0.0 WBC Differential . Differential Comment . Sodium 141 Potassium 3.8 Chloride 107 Carbon Dioxide 26.9 Anion Gap 7 BUN 6 L Creatinine 0.64 Estimated GFR Greater than 89 Random Glucose 99 Calcium 8.1 L Total Bilirubin 0.5 AST 30 ALT 28 Alkaline Phosphatase 73 Total Protein 6.0 L D Albumin 2.6 L Microbiology 04/10/18 18:25 Blood - Peripheral Aerobic Blood Culture - Preliminary No growth in 3 days 04/10/18 18:25 Blood - Peripheral Anaerobic Blood Culture - Preliminary No growth in 3 days 04/10/18 18:10 Blood - Peripheral Aerobic Blood Culture - Preliminary No growth in 3 days 04/10/18 18:10 Blood - Peripheral Anaerobic Blood Culture - Preliminary No growth in 3 days Assessment and Plan - Assessment (1) Sepsis affecting skin Code(s): A41.9 - Sepsis, unspecified organism Status: Acute (2) Cellulitis Code(s): L03.90 - Cellulitis, unspecified Status: Acute (3) Herpes zoster Code(s): B02.9 - Zoster without complications Status: Acute - Plan 58-year-old female with: Sepsis-resolved 2/2 Left arm cellulitis Currently on Zosyn and Vancomycin pending Blood cultures Left upper extremity Cellulitis Improving with Zosyn and Vancomycin; culture negative to date No venous thrombosis in the left upper extremity per Doppler Infectious Disease consult PRN Herpes zoster Start Valtrex Chronic Lymphedema No venous thrombosis in the left upper extremity per Doppler Monitor DVT prophylaxis: Lovenox
--- NOTE | 2018-04-13 11:27 | P.DS ---
Date of admission: 04/10/18 19:36 Primary care physician: UNKNOWN Brief History from admission: 58-year-old female who past medical history of breast cancer status post partial mastectomy and a history of chronic lymphedema of her left upper extremity presented to the ED for evaluation of left arm swelling and redness associated with febrile illness with a temp of 101, which improved with Tylenol. Doppler of the left upper extremity was negative. She denies any chest pain or shortness of pain DS: Diagnosis - Discharge Diagnosis (1) Sepsis affecting skin Status: Acute (2) Cellulitis Status: Acute (3) Herpes zoster Status: Acute DS: Summary Hospital Course: While in hospital, patient was treated for: Sepsis-resolved 2/2 Left arm cellulitis She Improved on Zosyn and Vancomycin prior to discharge, culture remains negative Left upper extremity Cellulitis She improved on Zosyn and Vancomycin; culture remain negative prior to discharge Will discharge the patient on Keflex 500 mg every 6 hours and doxycycline 100 mg twice daily times 7 days No venous thrombosis in the left upper extremity per Doppler Herpes zoster She was started on Valtrex Chronic Lymphedema No venous thrombosis in the left upper extremity per Doppler Monitor DVT prophylaxis: Lovenox - Time Spent with Patient Total time spent providing and/or coordinating discharge services: Less than 30 minutes - Quality: VTE Deep Vein Thrombosis/Pulmonary Embolism Present on Admission: No Exam Vital signs: Vital Signs 04/12/18 12:00 04/12/18 14:15 04/12/18 16:00 Temperature 98.0 F 98.2 F Pulse Rate 85 75 Respiratory Rate 18 20 18 Blood Pressure 126/68 130/64 Pulse Oximetry 95 97 04/12/18 20:00 04/12/18 23:52 04/13/18 07:00 Temperature 97.9 F 98.9 F Pulse Rate 79 74 Respiratory Rate 18 18 18 Blood Pressure 135/68 134/75 Pulse Oximetry 95 97 04/13/18 08:00 Temperature 98.1 F Pulse Rate 69 Respiratory Rate 15 Blood Pressure 116/74 Pulse Oximetry 97 Intake & Output 04/12/18 04/13/18 04/13/18 18:59 06:59 18:59 Intake Total 1070 / 1070 350 / 350 50 / 50 Output Total 3 / 3 Balance 1067 / 1067 350 / 350 50 / 50 Weight 58.9 kg Intake: IV 350 / 350 350 / 350 50 / 50 Zosyn 3.375 GM Premix 50 ML @ 100 / 100 100 / 100 50 / 50 100 mls/hr IV.SIG Q6H BONIFACIO Rx#: [id number] Vancomycin Inj 1,000 MG In NS 250 / 250 250 / 250 Inj 250 ML @ 250 mls/hr IV.SIG Q12H BONIFACIO Rx#:[id number] Oral 720 / 720 Output: Urine 3 / 3 Other: # Voids 4 Date of Last Bowel Movement 04/09/18 04/09/18 Narrative: GENERAL: NAD SKIN: Warm and dry. left arm swelling and redness improving. rash to anterior left chest HEAD: Atraumatic. Normocephalic. EYES: Pupils equal and round. No scleral icterus. No injection or drainage. ENT: No nasal bleeding or discharge. Mucous membranes pink and moist. NECK: Trachea midline. No JVD. CARDIOVASCULAR: Regular rate and rhythm. RESPIRATORY: No accessory muscle use. Clear to auscultation. Breath sounds equal bilaterally. GASTROINTESTINAL: Abdomen soft, non-tender, nondistended. Hepatic and splenic margins not palpable. MUSCULOSKELETAL: Extremities without clubbing, cyanosis, or edema. No obvious deformities. NEUROLOGICAL: Awake and alert. No obvious cranial nerve deficits. Motor grossly within normal limits. Five out of 5 muscle strength in the arms and legs. Normal speech. PSYCHIATRIC: Appropriate mood and affect; insight and judgment normal. Results Procedures completed during hospitalization: None Labs on day of discharge: Labs from last 24 hours 04/13/18 04/13/18 06:27 06:27 CBC w Diff Auto diff final WBC 6.1 RBC 3.26 L Hgb 10.8 L Hct 33.2 L MCV 101.8 H MCH 33.1 MCHC 32.5 RDW 13.0 Plt Count 287 MPV 7.7 Neut % (Auto) 50.8 Lymph % (Auto) 35.5 George % (Auto) 9.9 H Eos % (Auto) 3.1 Baso % (Auto) 0.7 Neut # (Auto) 3.1 Lymph # (Auto) 2.2 George # (Auto) 0.6 Eos # (Auto) 0.2 Baso # (Auto) 0.0 WBC Differential . Differential Comment . Sodium 141 Potassium 3.8 Chloride 107 Carbon Dioxide 26.9 Anion Gap 7 BUN 6 L Creatinine 0.64 Estimated GFR Greater than 89 Random Glucose 99 Calcium 8.1 L Total Bilirubin 0.5 AST 30 ALT 28 Alkaline Phosphatase 73 Total Protein 6.0 L D Albumin 2.6 L Preliminary micro results at discharge 04/10/18 18:25 Aerobic Blood Culture - Preliminary Blood - Peripheral No growth in 3 days Anaerobic Blood Culture - Preliminary No growth in 3 days 04/10/18 18:10 Aerobic Blood Culture - Preliminary Blood - Peripheral No growth in 3 days Anaerobic Blood Culture - Preliminary No growth in 3 days - Impressions ITS Impressions Venous Doppler Study 04/10/18 17:29 CONCLUSION: No venous thrombosis in the left upper extremity. Chest X-Ray 04/10/18 17:31 CONCLUSION: No acute cardiopulmonary disease. Discharge Plan - Discharge Disposition Patient Disposition: 01 Discharge Home - Discharge Condition Condition: Stable - Discharge Order Discharge Orders: Discharge Order (Routine); Ordered 04/13/18 Ordered By: Leroy Downs - Physicians Team Primary Care Provider: UNKNOWN, Attending Provider: Leroy Downs Other Providers: [employer]
[2018-04-13] MEDS ORDERED: valACYclovir 500 MG Tab PO SCH (11:30)
[2018-04-13 11:49] VITALS: RESP 18
[2018-04-13] MEDS: Budesonide-Formoterol 160/4.5 MCG 6 GM Inhaler INH SCH (13:43)
[2018-04-13 14:53] VITALS: BP 110/85; PULSE 72; TEMP 98; O2SAT 96
== END 2018-04-13 15:52 | disposition home or self-care (01) ==
LOC: PHED 17:07 → PHEDA 19:36 → PH3 20:50
PROVIDERS: ADMIT Hospitalist; ATTEND Hospitalist